=== PATIENT | male | born 1965 | race Caucasian/White ===

== ENCOUNTER → 2022-05-01 | Outpatient (CLI) | payer OTHER ==
[~2022-05-01] MED LIST: AMIT50; AMIT50 PO; ASPI325EC; CEPH500 PO; CLON2; DIPH50 PO; GLYB5; HYDACE10B; HYDACE5 PO; INS70/30I SC; INS70/30PN SC; INSLI100I SC; INSN100I; INSR10I; INSU7030P SC; INSUASPI SC; INSULANI; LISI20; LISI20 PO; METF500 PO; METF850; OMEP20ER; OMEP20ER PO; OXYC10ER; PIOG15; PIOG15 PO; PRED20 PO; PROM25 PO; QUET200; QUET300; QUET300 PO; RXHYDACE PO; TRAZ100
[2022-05-01 12:33] LABS: BASOPHILS ABSOLUTE AUTO 0.06 K/mm3 (0.00-0.23); BASOPHILS PERCENT AUTO 1 % (0-2); EOSINOPHILS ABSOLUTE AUTO 0.35 K/mm3 (0.00-0.68); EOSINOPHILS PERCENT AUTO 4 % (0-6); Hematocrit 40.1 % (37.0-53.0); Hemoglobin 12.8 g/dL (13.5-17.5); IMMATURE GRAN ABSOLUTE AUTO 0.12 K/mm3 (0.00-0.10); IMMATURE GRAN PERCENT AUTO 1 % (0-1); LYMPHOCYTES ABSOLUTE AUTO 1.88 K/mm3 (0.84-5.20); LYMPHOCYTES PERCENT AUTO 22 % (21-46); MONOCYTES ABSOLUTE AUTO 1.05 K/mm3 (0.16-1.47); MONOCYTES PERCENT AUTO 13 % (4-13); Mean Corpuscular HGB 26.2 pg (26.0-34.0); Mean Corpuscular HGB Conc 31.9 g/dL (31.5-36.5); Mean Corpuscular Volume 82 fL (80-100); Mean Platelet Volume 11.9 fL (9.1-12.4); NEUTROPHILS ABSOLUTE AUTO 4.94 K/mm3 (1.96-9.15); NEUTROPHILS PERCENT AUTO 59 % (41-73); Platelet Count 226 K/mm3 (150-400); RDW Coefficient Variation 13.4 % (11.7-14.2); RDW Standard Deviation 39.8 fL (35.1-46.3); Red Blood Cell Count 4.88 M/mm3 (4.30-5.90)
[2022-05-01 12:44] LABS: Albumin, Blood 3.7 g/dL (3.4-5.0); Bilirubin, Total 0.3 mg/dL (0.1-1.0); Calcium, Blood 9.2 mg/dL (8.5-10.1); Creatinine, Blood 1.25 mg/dL (0.60-1.20); Globulin, Blood 3.7 g/dL (2.2-4.0); Total Protein, Blood 7.4 g/dL (6.4-8.2)
== END | disposition home or self-care (01) ==
LOC: LAB 12:29 → LAB SHORT 12:29
PROVIDERS: Chiropractor
DX: E11.9 Type 2 diabetes mellitus without complications (principal)
CPT/HCPCS: 80053; 83036; 85025

== ENCOUNTER 2022-07-18 09:55 | Inpatient (IN) | payer OTHER ==
[~2022-07-18] VITALS: Ht 182.9 cm; Wt 164.3 kg
[2022-07-18 12:07] LABS: BASOPHILS ABSOLUTE AUTO 0.06 K/mm3 (0.00-0.23); BASOPHILS PERCENT AUTO 1 % (0-2); EOSINOPHILS ABSOLUTE AUTO 0.04 K/mm3 (0.00-0.68); EOSINOPHILS PERCENT AUTO 0 % (0-6); Hematocrit 42.9 % (37.0-53.0); Hemoglobin 13.4 g/dL (13.5-17.5); IMMATURE GRAN ABSOLUTE AUTO 0.16 K/mm3 (0.00-0.10); IMMATURE GRAN PERCENT AUTO 1 % (0-1); LYMPHOCYTES ABSOLUTE AUTO 0.87 K/mm3 (0.84-5.20); LYMPHOCYTES PERCENT AUTO 7 % (21-46); MONOCYTES PERCENT AUTO 6 % (4-13); Mean Corpuscular HGB 24.7 pg (26.0-34.0); Mean Corpuscular HGB Conc 31.2 g/dL (31.5-36.5); Mean Corpuscular Volume 79 fL (80-100); Mean Platelet Volume 12.3 fL (9.1-12.4); NEUTROPHILS ABSOLUTE AUTO 10.23 K/mm3 (1.96-9.15); NEUTROPHILS PERCENT AUTO 85 % (41-73); Platelet Count 226 K/mm3 (150-400); RDW Coefficient Variation 14.3 % (11.7-14.2); RDW Standard Deviation 40.7 fL (35.1-46.3); Red Blood Cell Count 5.43 M/mm3 (4.30-5.90); White Blood Cell Count 12.06 K/mm3 (4.00-11.30)
[2022-07-18 12:24] LABS: C-REACTIVE PROTEIN, EXT RANGE 14.4 mg/dL (0.000-0.300)
[2022-07-18 12:55] LABS: Albumin, Blood 2.7 g/dL (3.4-5.0); Albumin/Globulin Ratio 0.7 (0.8-1.8); Bilirubin, Total 0.5 mg/dL (0.1-1.0); Bun/Creatinine Ratio 27.8 (12.0-20.0); Calcium, Blood 9.6 mg/dL (8.5-10.1); Creatinine, Blood 0.79 mg/dL (0.60-1.20); Globulin, Blood 4.1 g/dL (2.2-4.0); Potassium, Blood 5.3 mmol/L (3.5-5.5); Total Protein, Blood 6.8 g/dL (6.4-8.2)
[2022-07-18 16:59] LABS: U Amphetamine Screen DETECTED; U Barbituate Screen Not Detected; U Benzodiazapine Screen Not Detected; U Buprenorphine Screen Not Detected; U Cannabinoids Screen Not Detected; U Cocaine Screen Not Detected; U Methadone Screen Not Detected; U Methamphetamine Screen DETECTED; U Opiates Screen Not Detected; U Oxycodone Screen Not Detected; U Phencyclidine Screen Not Detected; U Propoxyphene Screen Not Detected
--- NOTE | 2022-07-18 17:30 | NUR ---
ARRIVAL TO UNIT PT. ABLE TO STAND AND TRANSFER TO ICU BED. PT HAS 22G IV TO LEFT CHEST WALL INFUSING NS AND ANTIBIOTICS. IV TO RIGHT AC INFILTRATED AND REMOVED UPON ARRIVAL. PT. ALERT AND ORIENTED. ANSWERING QUESTIONS. AFEBRILE. PT. INSULIN GTT STARTED AND PG PLACED TO RIGHT UPPER ARM FOR ADDITIONAL ACCESS AND BLOOD DRAW. PT. HAS BILAT REDNESS AND SWELLING TO FOREARMS, PER ED REPORT PLAN IS FOR PT TO GO TO OR TOMORROW. REDNESS OUTLINED. PT STANDS AT BEDSIDE TO VOID, VOIDS FREQUENTLY CLEAR YELLOW URINE. PT HYPERTENSIVE UPON ARRIVAL. HR 80S. CURRENTLY ON RA.
[2022-07-18] MEDS ORDERED: BASAGLAR K100 UNIT/1 SC (17:33)
[2022-07-18 18:26] LABS: Base Excess Venous 3.6 mmol/L; pH Blood Venous 7.33 (7.34-7.37)
[2022-07-18 18:47] LABS: Glucose, Blood 710 mg/dL (70-99)
--- NOTE | 2022-07-18 19:15 | NUR ---
ASSUMED CARE OF PT @1900 FROM DARYA NAVA. PT RESTING IN BED. A&O X4. ANSWERING QUESTIONS APPROPRIATELY. COMPLAINING OF PAIN AND IS RESTLESS. INSULIN 8U/HR INFUSING, NS 300MLS/HR INFUSING. PG JACKY. IV L SHOULDER PATENT W/SALINE LOCK. RR 20, SPO2 >92%, CONTINUOUS CARDIAC MONITORING. HR 80'S, SBP 190-210, MAP >65.
--- NOTE | 2022-07-18 20:36 | NUR ---
UPDATE CALLED DR GEORGE REGARDING PT BP 221/88. PRN HYDROLAZINE AND PRN FENTANYL GIVEN EARLIER WITH NO RELIEF. NEW ORDERS PROVIDED FOR PRN LABETALOL.
[2022-07-18 20:47] LABS: Bun/Creatinine Ratio 26.3 (12.0-20.0); Calcium, Blood 9.3 mg/dL (8.5-10.1); Creatinine, Blood 0.84 mg/dL (0.60-1.20); Potassium, Blood 3.9 mmol/L (3.5-5.5)
--- NOTE | 2022-07-18 22:06 | NUR ---
JANEE GEORGE RE SBP >190'S AFTER PRN ANTIHYPERTENSIVE MEDICATIONS. DUE TO HIGHEST SBP IN 120'S PRIOR TO MEDS CONTINUE TO MONITOR AND GIVE PRN MEDS THEY ARE DUE. IF SBP INCREASES TO >200 LET PHYSICIAN KNOW.
[2022-07-19 03:29] LABS: BASOPHILS ABSOLUTE AUTO 0.03 K/mm3 (0.00-0.23); BASOPHILS PERCENT AUTO 0 % (0-2); EOSINOPHILS ABSOLUTE AUTO 0.16 K/mm3 (0.00-0.68); EOSINOPHILS PERCENT AUTO 2 % (0-6); Hemoglobin 11.4 g/dL (13.5-17.5); IMMATURE GRAN ABSOLUTE AUTO 0.07 K/mm3 (0.00-0.10); IMMATURE GRAN PERCENT AUTO 1 % (0-1); LYMPHOCYTES PERCENT AUTO 14 % (21-46); MONOCYTES ABSOLUTE AUTO 0.82 K/mm3 (0.16-1.47); MONOCYTES PERCENT AUTO 8 % (4-13); Mean Corpuscular HGB 24.4 pg (26.0-34.0); Mean Corpuscular HGB Conc 31.7 g/dL (31.5-36.5); Mean Corpuscular Volume 77 fL (80-100); NEUTROPHILS ABSOLUTE AUTO 7.41 K/mm3 (1.96-9.15); NEUTROPHILS PERCENT AUTO 75 % (41-73); Platelet Count 189 K/mm3 (150-400); RDW Coefficient Variation 14.2 % (11.7-14.2); RDW Standard Deviation 38.6 fL (35.1-46.3); Red Blood Cell Count 4.68 M/mm3 (4.30-5.90); White Blood Cell Count 9.89 K/mm3 (4.00-11.30)
[2022-07-19 03:51] LABS: Albumin, Blood 2.3 g/dL (3.4-5.0); Albumin/Globulin Ratio 0.6 (0.8-1.8); Bilirubin, Total 0.4 mg/dL (0.1-1.0); Bun/Creatinine Ratio 22.3 (12.0-20.0); Calcium, Blood 8.7 mg/dL (8.5-10.1); Creatinine, Blood 0.67 mg/dL (0.60-1.20); Globulin, Blood 3.7 g/dL (2.2-4.0); Magnesium, Blood 1.7 mg/dL (1.6-2.4); Potassium, Blood 3.6 mmol/L (3.5-5.5)
--- NOTE | 2022-07-19 05:30 | NUR ---
UPDATE SW DR LOMBARDI RE CBG <250. NO NEW ORDERS AT THIS TIME. DISCUSSED HYPERTENSION, SBP 180-210. NEW ORDER FOR HYDRALAZINE 10-20MG PRN Q 6HRS.
--- NOTE | 2022-07-19 06:23 | NUR ---
UPDATE CALLED DR CHAPMAN REGARDING CBG <250. NEW ORDERS PROVIDED TO STOP THE INSULIN GTT AND START LONG ACTING INSULIN.
--- NOTE | 2022-07-19 06:27 | NUR ---
SUMMARY: PT A&O X4 THROUGHOUT SHIFT. ANXIOUS AND COMPLAINING OF PAIN IN FOREARMS. COOPERATIVE W/CARE. PT ABLE TO MOVE ALL EXTREMETIES AND SIT AT EDGE OF BED TO USE URINAL. USES CALL LIGHT APPROPRIATELY. AFEBRILE. PERRL. RR <20, SPO2 >94% ON RA. HR SR 80-90'S. PT REMAINED HYPERTENSIVE THROUGHOUT SHIFT. SBP 180-210'S, TREATED W/PRN LABETALOL AND HYDRALAZINE. PT COMPLAINED OF NAUSEA THIS AM, ZOFRAN GIVEN. PT URINATING FREQUENTLY. IV ACCESS: PG JACKY INFUSING, PG CRYSTAL PATENT W/SALINE LOCK. IV 22GA L SHOULDER SALINE LOCK.
--- NOTE | 2022-07-19 10:00 | NUR ---
Care Assumed 0700 A/O X 4, correct location, event, and following directions. States having pain in forearms, treated per emar. Bilateral redness and swelling to forearms, see pictures in chart. Redness contained within outline. Moving all extrems and standing to use urinal. Hypertensive, will treat per emar. Insulin GTT @ 4, stopped and long acting insulin administed, see emar. Call light within reach.
--- NOTE | 2022-07-19 10:00 | NUR ---
Care Assumed 0700 A/O X 4, states year, correct event, and following directions. Calm/ cooperative . Able to stand at bedside to use urinal. States having pain in forearms, treated per emar. Bilateral forearm redness/tender, see pictures in chart. Redness contained within outline. Pt hypertensive, treated per emar. VSS. Call light within reach.
--- NOTE | 2022-07-19 11:00 | NUR ---
Provider Call Dr. Garry Castañeda called to check patient status. Updated on current pt care and wounds on left and right forearm. Provider to stop by later to assess prior to surgery today.
--- NOTE | 2022-07-19 12:56 | NUR ---
Provider Call- Dr. Darby 2100 dose of Glargine to be held due to 0802 and 1049 dose of 20 units of glargine already being administered. New orders for oxygen and CPAP due to patients SPO2 destating to low 80's while asleep.
--- NOTE | 2022-07-19 13:38 | NUR ---
Dr. Castañeda provider visit and provider call- Dr. Mehnaz Castañeda in to see patient. And Dr. Darby called to change pt status to PCU status. New orders recieved.
--- NOTE | 2022-07-19 14:14 | NUR ---
Surgery center nurse at bedside.
--- NOTE | 2022-07-19 15:00 | NUR ---
Transfer to surgery center via wheelchair with surgical nurse.
--- NOTE | 2022-07-19 16:16 | NUR ---
07/19/22 1616 Jorge Eckert PATIENT ON SCHEDULED ANTIBIOTICS
--- NOTE | 2022-07-19 18:35 | NUR ---
Returing from OR to ICU 14 Pt transfered via OR bed to ICU bed. A/O X 4. Per surgery nurse pt has Brick in left forearm. Both forearms TAI wrapped and gauze in place. Pt denies numbness/tingling. On 2 L via NC, SPO2 > 90%. Wheezing T/O. Hypertensive, treated per emar. BT active and able to tolerate PO intake. Denies nausea. Appears angry due to wanting to stand and use urinal. Three nurses at bedside to assist patient due to pt refusing to use urinal in bed. Will report to night.
--- NOTE | 2022-07-19 18:44 | NUR ---
Provider Call - Dr. Morocho Provider called to recieve diet order and to start pt on short acting insulin to manage hyperglycemia. Left voicemail. Will pass on message to nightshift RN.
--- NOTE | 2022-07-19 18:54 | NUR ---
Spoke to Dr. Morocho and provider to put in new orders.
[2022-07-19 18:59] LABS: Vancomycin, Trough 17.1 ug/mL (5.0-10.0)
[2022-07-20 03:55] LABS: BASOPHILS ABSOLUTE AUTO 0.06 K/mm3 (0.00-0.23); BASOPHILS PERCENT AUTO 1 % (0-2); EOSINOPHILS ABSOLUTE AUTO 0.15 K/mm3 (0.00-0.68); EOSINOPHILS PERCENT AUTO 2 % (0-6); Hematocrit 38.7 % (37.0-53.0); Hemoglobin 11.7 g/dL (13.5-17.5); IMMATURE GRAN ABSOLUTE AUTO 0.15 K/mm3 (0.00-0.10); IMMATURE GRAN PERCENT AUTO 2 % (0-1); LYMPHOCYTES ABSOLUTE AUTO 1.15 K/mm3 (0.84-5.20); LYMPHOCYTES PERCENT AUTO 11 % (21-46); MONOCYTES ABSOLUTE AUTO 0.85 K/mm3 (0.16-1.47); MONOCYTES PERCENT AUTO 8 % (4-13); Mean Corpuscular HGB 24.5 pg (26.0-34.0); Mean Corpuscular HGB Conc 30.2 g/dL (31.5-36.5); Mean Corpuscular Volume 81 fL (80-100); NEUTROPHILS ABSOLUTE AUTO 7.75 K/mm3 (1.96-9.15); NEUTROPHILS PERCENT AUTO 77 % (41-73); Platelet Count 243 K/mm3 (150-400); RDW Coefficient Variation 14.8 % (11.7-14.2); RDW Standard Deviation 43.2 fL (35.1-46.3); Red Blood Cell Count 4.77 M/mm3 (4.30-5.90); White Blood Cell Count 10.11 K/mm3 (4.00-11.30)
[2022-07-20 04:15] LABS: Albumin, Blood 2.5 g/dL (3.4-5.0); Albumin/Globulin Ratio 0.7 (0.8-1.8); Bilirubin, Total 0.4 mg/dL (0.1-1.0); Bun/Creatinine Ratio 18.6 (12.0-20.0); C-REACTIVE PROTEIN, EXT RANGE 6.34 mg/dL (0.000-0.300); Calcium, Blood 7.7 mg/dL (8.5-10.1); Creatinine, Blood 1.13 mg/dL (0.60-1.20); Globulin, Blood 3.7 g/dL (2.2-4.0); Potassium, Blood 4.7 mmol/L (3.5-5.5); Total Protein, Blood 6.2 g/dL (6.4-8.2)
--- NOTE | 2022-07-20 06:35 | NUR ---
SHIFT SUMMARY: PTS CHEMBG WAS 383 LAST NIGHT. CALLED MD ABOUT NURSING ORDER TO HOLD LONG ACTING AND MD STATED TO GIVE LONGA CTING WELL SSI. ARMS WRAPPED IN BANDAGES FROM SURGERY. PRN FENTANYL, LABETALOL, AND HYDRALAZINE GIVEN THROUGHOUT NIGHT WITH MODERATE HTN CONTROL.NS INFUSING @ 100ML/HR. NO ACUTE EVENTS OVERNIGHT
--- NOTE | 2022-07-20 09:30 | NUR ---
Care Assumed 0700 A.O X 4. On 4 L via NC, SPO2 > 95%. LS coarse. Able to turn self in bed. States having left and right forearm pain while moving. Able to stand and use urinal. Had an episode of bowel incontinence. Per nightshift this happened twice during nightshift as well. VSS. Call light within reach. BT active. Dr. Darby in to see patient and pt changed to surgical floor status. NS rate changed from 100 ml/hr to 50 ml/hr. Provider to place orders for PO pain meds.
--- NOTE | 2022-07-20 10:25 | NUR ---
Provider visit- Dr. Castañeda Left and right forearm dressing changed by provider. Wet to dry. Left forearm surgical site appears ecchymotic. Pt states increased pain with dressing changes (03/27). Treated per emar. Per provider pt cannot be discharged home today. Pt can take a shower and Dr. Castañeda would like dressings removed and water to run on both forearms. Wet to dry packed dressing with gauze and benjamín wrap after.
--- NOTE | 2022-07-20 12:38 | NUR ---
Hyperglycemia- Dr. Darby New orders recieved see emar.
--- NOTE | 2022-07-20 13:41 | NUR ---
Report given to room 340 nurse. All questions answered. All patient belongings sent with patient.
--- NOTE | 2022-07-20 17:21 | NUR ---
DAYSHIFT SUMMARY Patient transferred from ICU. S/p I&D abscess. Per MD orders, okay to remove dressings, for shower. Scant amount of pink/bloody exudate noted on dressings. After shower repacked wound bed w/ wet to dry dressing. Patient c/o moderate/severe pain bilateral wrists. Percocet given for pain, PRN effective. IV ABX infusing. Plan is for NPO & midnight, possible I&D tomorrow. Skin surrounding wound beds, red/warm. Will continue plan of care.
--- NOTE | 2022-07-21 03:31 | NUR ---
Patient in room, prn pain medication given.
[2022-07-21 06:29] LABS: BASOPHILS ABSOLUTE AUTO 0.04 K/mm3 (0.00-0.23); BASOPHILS PERCENT AUTO 1 % (0-2); EOSINOPHILS ABSOLUTE AUTO 0.35 K/mm3 (0.00-0.68); EOSINOPHILS PERCENT AUTO 4 % (0-6); Hemoglobin 11.7 g/dL (13.5-17.5); IMMATURE GRAN PERCENT AUTO 1 % (0-1); LYMPHOCYTES ABSOLUTE AUTO 0.93 K/mm3 (0.84-5.20); LYMPHOCYTES PERCENT AUTO 11 % (21-46); MONOCYTES ABSOLUTE AUTO 0.69 K/mm3 (0.16-1.47); MONOCYTES PERCENT AUTO 8 % (4-13); Mean Corpuscular HGB 24.1 pg (26.0-34.0); Mean Corpuscular Volume 80 fL (80-100); NEUTROPHILS ABSOLUTE AUTO 6.69 K/mm3 (1.96-9.15); NEUTROPHILS PERCENT AUTO 76 % (41-73); Platelet Count 221 K/mm3 (150-400); RDW Coefficient Variation 14.7 % (11.7-14.2); RDW Standard Deviation 42.5 fL (35.1-46.3); Red Blood Cell Count 4.86 M/mm3 (4.30-5.90)
[2022-07-21 06:58] LABS: Anion Gap 8 mmol/L (6-16); Blood Urea Nitrogen 16 mg/dL (8-24); Bun/Creatinine Ratio 18.8 (12.0-20.0); CO2, Blood 26 mmol/L (21-32); Calcium, Blood 8.7 mg/dL (8.5-10.1); Chloride, Blood 103 mmol/L (98-108); Creatinine, Blood 0.85 mg/dL (0.60-1.20); Glomerular Filtration Rate 103 (60-); Glucose, Blood 258 mg/dL (70-99); Potassium, Blood 4.1 mmol/L (3.5-5.5); Sodium, Blood 137 mmol/L (136-145); Vancomycin, Random 7.8 ug/mL
--- NOTE | 2022-07-21 14:08 | NUR ---
Patient NPO at midnight, possible I&D on left arm. RN talked to Dr. Castañeda this morning, she said she would be in to assess LE to determine if surgery needed. Called Dr. Castañeda at 1307, left message. Dr. Castañeda called & said she was going into surgery and would see pt later. RN told MD that patient is a diabetic, and is anxious to eat. Pt does not want to wait any longer, requesting food tray. Dr. Castañeda is aware, that patient is eating right now, against medical advice. Educated provided on outcomes of pt not following NPO order. Patient verbalized understanding, and requested to have food now.
--- NOTE | 2022-07-21 18:02 | NUR ---
DAYSHIFT SUMMARY Patient NPO until 1400, IV ABX administred, saturations stable on RA, afebrile. Patient hypertensive this AM, no PRNs avaliable to given, notified MD, and new med orders. Patient anxious & frusterated becuase he had to be NPO all day. Changed dressings on BLE, provided education on wound care. Dr. De La Garza assessed patient at bedside, she removed dressings, flushed wound beds, and reapplied new dressings. Dr. Castañeda stated patient wounds look better, she recommends PO ABX & patient come to [facility] wound clinic daily for dressing changes. Notified Dr. marshall, plan is to keep patient overnight for IV ABX & tomorrow set up wound care visits, and discharge med rec.
--- NOTE | 2022-07-22 03:30 | NUR ---
Patient pain controlled with prn medication.
[2022-07-22 08:54] LABS: Influenza B, PCR NEGATIVE (NEGATIVE); Resp Syncytial Virus, PCR NEGATIVE (NEGATIVE); SARS-Cov-2 (COVID-19) PCR, MMC NEGATIVE (NEGATIVE)
[2022-07-22 08:56] LABS: Influenza A, PCR POSITIVE (NEGATIVE)
[2022-07-22 10:00] LABS: BASOPHILS ABSOLUTE AUTO 0.04 K/mm3 (0.00-0.23); BASOPHILS PERCENT AUTO 1 % (0-2); EOSINOPHILS ABSOLUTE AUTO 0.25 K/mm3 (0.00-0.68); EOSINOPHILS PERCENT AUTO 6 % (0-6); Hematocrit 36.3 % (37.0-53.0); Hemoglobin 10.9 g/dL (13.5-17.5); IMMATURE GRAN ABSOLUTE AUTO 0.06 K/mm3 (0.00-0.10); IMMATURE GRAN PERCENT AUTO 1 % (0-1); LYMPHOCYTES ABSOLUTE AUTO 0.51 K/mm3 (0.84-5.20); LYMPHOCYTES PERCENT AUTO 12 % (21-46); MONOCYTES ABSOLUTE AUTO 0.79 K/mm3 (0.16-1.47); MONOCYTES PERCENT AUTO 18 % (4-13); Mean Corpuscular HGB 24.1 pg (26.0-34.0); Mean Corpuscular Volume 80 fL (80-100); Mean Platelet Volume 12.3 fL (9.1-12.4); NEUTROPHILS ABSOLUTE AUTO 2.69 K/mm3 (1.96-9.15); NEUTROPHILS PERCENT AUTO 62 % (41-73); Platelet Count 161 K/mm3 (150-400); RDW Coefficient Variation 14.8 % (11.7-14.2); RDW Standard Deviation 43.4 fL (35.1-46.3); Red Blood Cell Count 4.52 M/mm3 (4.30-5.90); White Blood Cell Count 4.34 K/mm3 (4.00-11.30)
[2022-07-22 10:01] LABS: Vancomycin, Trough 13.5 ug/mL (5.0-10.0)
[2022-07-22 10:04] LABS: Albumin, Blood 2.4 g/dL (3.4-5.0); Albumin/Globulin Ratio 0.7 (0.8-1.8); Bilirubin, Total 0.3 mg/dL (0.1-1.0); Bun/Creatinine Ratio 13.7 (12.0-20.0); C-REACTIVE PROTEIN, EXT RANGE 3.05 mg/dL (0.000-0.300); Calcium, Blood 8.4 mg/dL (8.5-10.1); Creatinine, Blood 1.24 mg/dL (0.60-1.20); Globulin, Blood 3.4 g/dL (2.2-4.0); Total Protein, Blood 5.8 g/dL (6.4-8.2)
[2022-07-22] MEDS ORDERED: AMLO10 PO (12:52)
[2022-07-22] MEDS ORDERED: CLINDAMYCI PO (12:53)
[2022-07-22] MEDS ORDERED: AMOCLA875 PO (12:53)
[2022-07-22] MEDS ORDERED: HYDRA25 (12:53)
[2022-07-22] MEDS ORDERED: Percocet 5-3251 EACH PO (12:54)
--- NOTE | 2022-07-22 14:16 | NUR ---
This morning finished IV ABX Zoysn, Vanco, & Clindamycin. Patient continues to be hypertensive, this morning BP was 203/96, after receiving morning meds BP was 174/96. MD encouraged patient to stay overnight, to stablize BP. Patient verbalized understanding, but declined and stated he would be more relaxed at home & would f/u with PCP this week. Provided education on wound care & medication. Referral sent to [facility] wound clinic, the clinic will reach out to patient this week. Cleansed and reapplied new wet-to-dry dressing, patient verbalizied understanding & said his GF would help, extra dressings provided. Called [facility] & established care, patient has f/u appointment scheduled for this week. Removed powerglides in LUE/RUE, cath tip intact, no redness at site. Pharmacist also provided education to patient. Patient left medical floor at 1400.
== END 2022-07-22 14:04 | disposition home or self-care (01) | DRG 853 ==
LOC: ER 09:55 → MEDS 15:52 → ICUW 15:52 → MEDS 07-20 13:55
PROVIDERS: Hospitalist; Nurse Practitioner Acute Care; Orthopaedic Surgery; Physician Assistant; ADMIT Internal Medicine
PROC: 3E03329 Introduction of Other Anti-infective into Peripheral Vein, Percutaneous Approach (ICD-10-PCS; 2022-07-18)
PROC: 0JBG0ZZ Excision of Right Lower Arm Subcutaneous Tissue and Fascia, Open Approach (ICD-10-PCS; 2022-07-19)
PROC: 0JBH0ZZ Excision of Left Lower Arm Subcutaneous Tissue and Fascia, Open Approach (ICD-10-PCS; principal; 2022-07-19 15:00)
DX: A41.4 Sepsis due to anaerobes (principal); E11.00 Type 2 diabetes mellitus with hyperosmolarity without nonketotic hyperglycemic-hyperosmolar coma (NKHHC); L03.114 Cellulitis of left upper limb; L02.414 Cutaneous abscess of left upper limb; L02.413 Cutaneous abscess of right upper limb; Z68.43 Body mass index [BMI] 50.0-59.9, adult; R65.20 Severe sepsis without septic shock; I16.0 Hypertensive urgency; F15.10 Other stimulant abuse, uncomplicated; J10.1 Influenza due to other identified influenza virus with other respiratory manifestations; K21.9 Gastro-esophageal reflux disease without esophagitis; G47.33 Obstructive sleep apnea (adult) (pediatric); E66.01 Morbid (severe) obesity due to excess calories; J98.2 Interstitial emphysema; Z98.890 Other specified postprocedural states; Z20.822 Contact with and (suspected) exposure to COVID-19; Z79.84 Long term (current) use of oral hypoglycemic drugs; Z79.811 Long term (current) use of aromatase inhibitors; Z79.4 Long term (current) use of insulin; Z79.899 Other long term (current) drug therapy; Z91.198 Patient's noncompliance with other medical treatment and regimen for other reason
CPT/HCPCS: 0241U; 36415; 73201; 80048; 80053; 80202; 82010; 82550; 82803; 82947; 83605; 83735; 83930; 85025; 85651; 86140; 87040; 87070; 87071; 87075; 87076; 87205; 90471; 90714; 93005; 93010; 96365-59; 96366-59; 96367-59; 96375-59; 99285-25; A9270; C1751; J0360; J1100; J1170; J1650; J1815; J2250; J2405; J2543; J2704; J3010; J3370; J7030; J7050; J7120; Q9967

== ENCOUNTER 2022-07-26 18:20 | Inpatient (IN) | payer OTHER ==
[~2022-07-26] VITALS: Ht 185.4 cm; Wt 179.4 kg
[~2022-07-26 18:20] MED LIST changes: +AMLO10 PO; +AMOCLA875 PO; +BASAGLAR K100 UNIT/1 SC; +CLINDAMYCI PO; +HYDRA25; +Percocet 5-3251 EACH PO
[2022-07-26 19:00] LABS: Base Excess Venous -3.1 mmol/L; Bicarbonate Venous 20.8 mmol/L (24.0-30.0); PCO2 Venous 69.7 mmHg (38-42)
[2022-07-26 19:01] LABS: Albumin, Blood 2.6 g/dL (3.4-5.0); Albumin/Globulin Ratio 0.7 (0.8-1.8); Bilirubin, Total 0.4 mg/dL (0.1-1.0); Bun/Creatinine Ratio 20.7 (12.0-20.0); Calcium, Blood 8.8 mg/dL (8.5-10.1); Creatinine, Blood 2.61 mg/dL (0.60-1.20); Globulin, Blood 3.9 g/dL (2.2-4.0); Potassium, Blood 5.9 mmol/L (3.5-5.5); Total Protein, Blood 6.5 g/dL (6.4-8.2)
[2022-07-26 19:01] LABS: pH Blood Venous 7.17 (7.34-7.37)
[2022-07-26 19:05] LABS: Beta-hydroxybutyrate 1.8 mg/dL (0.2-2.8)
[2022-07-26 19:22] LABS: BASOPHILS ABSOLUTE AUTO 0.03 K/mm3 (0.00-0.23); BASOPHILS PERCENT AUTO 0 % (0-2); EOSINOPHILS PERCENT AUTO 0 % (0-6); Hematocrit 38.4 % (37.0-53.0); Hemoglobin 11.7 g/dL (13.5-17.5); IMMATURE GRAN ABSOLUTE AUTO 0.12 K/mm3 (0.00-0.10); IMMATURE GRAN PERCENT AUTO 2 % (0-1); LYMPHOCYTES ABSOLUTE AUTO 0.86 K/mm3 (0.84-5.20); LYMPHOCYTES PERCENT AUTO 13 % (21-46); MONOCYTES ABSOLUTE AUTO 0.74 K/mm3 (0.16-1.47); MONOCYTES PERCENT AUTO 11 % (4-13); Mean Corpuscular HGB 24.4 pg (26.0-34.0); Mean Corpuscular HGB Conc 30.5 g/dL (31.5-36.5); Mean Corpuscular Volume 80 fL (80-100); NEUTROPHILS ABSOLUTE AUTO 5.04 K/mm3 (1.96-9.15); NEUTROPHILS PERCENT AUTO 74 % (41-73); NRBC ABSOLUTE 0.02 K/mm3 (0.00-0.02); NRBC Auto 0.3 /100 WBC (0.0-0.2); Platelet Count 264 K/mm3 (150-400); RDW Coefficient Variation 14.8 % (11.7-14.2); RDW Standard Deviation 43.3 fL (35.1-46.3); Red Blood Cell Count 4.79 M/mm3 (4.30-5.90); White Blood Cell Count 6.79 K/mm3 (4.00-11.30)
[2022-07-26 19:49] LABS: Mean Platelet Volume 13.6 fL (9.1-12.4)
[2022-07-26 21:22] LABS: Influenza B, PCR NEGATIVE (NEGATIVE); Resp Syncytial Virus, PCR NEGATIVE (NEGATIVE); SARS-Cov-2 (COVID-19) PCR, MMC NEGATIVE (NEGATIVE)
[2022-07-26 21:38] LABS: Base Excess Venous -1.3 mmol/L; Bicarbonate Venous 22.3 mmol/L (24.0-30.0); pH Blood Venous 7.25 (7.34-7.37)
[2022-07-26 21:39] LABS: Bun/Creatinine Ratio 20.4 (12.0-20.0); Calcium, Blood 8.9 mg/dL (8.5-10.1); Creatinine, Blood 2.75 mg/dL (0.60-1.20); Potassium, Blood 5.5 mmol/L (3.5-5.5)
[2022-07-26 21:45] LABS: Influenza A, PCR POSITIVE (NEGATIVE)
[2022-07-26 23:14] LABS: Bilirubin, Urine Neg (Neg); Blood, Urine Neg (Neg); Glucose Qualitative, Urine 4+ (Neg); Ketones, Urine Neg (Neg); Leukocyte Esterase, Urine Neg (Neg); Nitrite, Urine Neg (Neg); Protein, Urine Neg (Neg); Specific Gravity, Urine 1.015 (1.003-1.022); Urobilinogen, Urine NORM (Normal)
[2022-07-27 00:23] LABS: Appearance, Urine Clear (Clear); Color, Urine Yellow (P-Yellow)
[2022-07-27 01:26] LABS: Source, Urine Foley catheter
[2022-07-27 01:51] LABS: PCO2 Arterial 55.6 mmHg (35-45); PO2 Arterial 113 mmHg (80-100)
[2022-07-27 02:02] LABS: Appearance, Urine Clear (Clear); Bilirubin, Urine Neg (Neg); Blood, Urine Neg (Neg); Color, Urine Yellow (P-Yellow); Glucose Qualitative, Urine 4+ (Neg); Ketones, Urine Neg (Neg); Leukocyte Esterase, Urine Neg (Neg); Nitrite, Urine Neg (Neg); Protein, Urine 1+ (Neg); Specific Gravity, Urine 1.015 (1.003-1.022); Urobilinogen, Urine NORM (Normal)
[2022-07-27 02:07] LABS: Creatinine, Blood 2.95 mg/dL (0.60-1.20); Potassium, Blood 4.8 mmol/L (3.5-5.5)
--- NOTE | 2022-07-27 04:43 | NUR ---
SHIFT SUMMARY: PT. CAME IN OVERNIGHT WITH AN INSULIN DRIP GOING AT 21 AND BG IN THE 300S. UPON ARRIVAL BG WAS 302 AND UPON SECOND CHECK, GLUCOSE WAS BELOW 250 AND THE INSULIN DRIP WAS ABLE TO BE TURNED OFF. PT. CAME UP ON BIPAP AND IS SATTING WELL ON THAT, ALTHOUGH LUNG SOUNDS DO HAVE AN AUDIBLE WHEEZE. PT. IS ALERT AND ORIENTED AND ABLE TO ANSWER QUESTIONS APPROPRIATELY NOW. PT. HAS A BENITEZ CATHETER DRAINING TO GRAVITY. PT. IS CURRENTLY SALINE LOCKED AMD IS RESTING IN BED WITH CALL LIGHT IN REACH.
[2022-07-27 04:50] LABS: BASOPHILS ABSOLUTE AUTO 0.03 K/mm3 (0.00-0.23); BASOPHILS PERCENT AUTO 0 % (0-2); EOSINOPHILS ABSOLUTE AUTO 0.05 K/mm3 (0.00-0.68); EOSINOPHILS PERCENT AUTO 1 % (0-6); Hematocrit 34.6 % (37.0-53.0); Hemoglobin 10.7 g/dL (13.5-17.5); IMMATURE GRAN ABSOLUTE AUTO 0.12 K/mm3 (0.00-0.10); IMMATURE GRAN PERCENT AUTO 2 % (0-1); LYMPHOCYTES ABSOLUTE AUTO 1.78 K/mm3 (0.84-5.20); LYMPHOCYTES PERCENT AUTO 24 % (21-46); MONOCYTES ABSOLUTE AUTO 0.95 K/mm3 (0.16-1.47); MONOCYTES PERCENT AUTO 13 % (4-13); Mean Corpuscular HGB 24.2 pg (26.0-34.0); Mean Corpuscular HGB Conc 30.9 g/dL (31.5-36.5); Mean Corpuscular Volume 78 fL (80-100); Mean Platelet Volume 12.7 fL (9.1-12.4); NEUTROPHILS ABSOLUTE AUTO 4.62 K/mm3 (1.96-9.15); NEUTROPHILS PERCENT AUTO 61 % (41-73); NRBC ABSOLUTE 0.03 K/mm3 (0.00-0.02); NRBC Auto 0.4 /100 WBC (0.0-0.2); Platelet Count 303 K/mm3 (150-400); RDW Coefficient Variation 14.9 % (11.7-14.2); RDW Standard Deviation 42.1 fL (35.1-46.3); Red Blood Cell Count 4.42 M/mm3 (4.30-5.90); White Blood Cell Count 7.55 K/mm3 (4.00-11.30)
[2022-07-27 05:08] LABS: Albumin, Blood 2.3 g/dL (3.4-5.0); Albumin/Globulin Ratio 0.6 (0.8-1.8); Bilirubin, Total 0.4 mg/dL (0.1-1.0); Bun/Creatinine Ratio 18.2 (12.0-20.0); Calcium, Blood 8.6 mg/dL (8.5-10.1); Creatinine, Blood 3.19 mg/dL (0.60-1.20); Globulin, Blood 3.6 g/dL (2.2-4.0); Magnesium, Blood 2.4 mg/dL (1.6-2.4); Potassium, Blood 4.7 mmol/L (3.5-5.5); Total Protein, Blood 5.9 g/dL (6.4-8.2)
--- NOTE | 2022-07-27 08:46 | NUR ---
ASSUMED CARE OF MALLORIE AT 0700, HE WAS SLEEPING WITH THE BIPAP MASK ON @ 30%. WHEN AWAKENED DURING HIS ASSESSMENT HE ASKED FOR THE MASK TO BE REMOVED. OXYGEN PLACED AT 3L/NC. HE IS AUDIBLY HAVING EXP.WHEEZES AND IS DIMINISHED IN THE BASES. HE WENT ON TO EXPRESS HIS UNHAPPINESS WITH WHY HE IS HERE AND HOW HIS DISCHARGE A FEW DAYS AGO WENT. CALL TO TO GET FOOD ORDER. ORDER REC'D.
--- NOTE | 2022-07-27 09:14 | NUR ---
PT IS AUDIBLY WHEEZING, PT IS COUGHING QUITE A BIT, HE IS NOT ABLE TO RETURN ANYTHING. HE IS UP AND MOVING AROUND, HE IS WEAK AND UNSTEADY BUT NOT RESPON- SIVE TO REDIRECTION.
--- NOTE | 2022-07-27 11:05 | NUR ---
BIPAP REPLACED PT WAS FALLING ASLEEP AND WAS DROPPING HIS SATS. HE IS UNDERGOING THE ECHO RIGHT NOW, AND ULTRASOUND WILL RETURN FOR IMAGES. HE IS MORE CALM, HEART RATE 80S, SATS HI 90'S. RIGHT ARM WOUND FROM DEBRIDEMENT RE INFORCED WITH COBAN, EDGES CLEAN, NO EXUDATE. LEFT WOUND NOT ASSESSED, IT IS WRAPPED AND TAPED AT THIS TIME.
[2022-07-27 13:28] LABS: Base Excess Venous 2.6 mmol/L; Bicarbonate Venous 25.2 mmol/L (24.0-30.0); PCO2 Venous 64.4 mmHg (38-42); pH Blood Venous 7.27 (7.34-7.37)
--- NOTE | 2022-07-27 15:15 | NUR ---
GETACHEW WAS GIVEN THE INFORMATION REGARDING HIS HEART, THAT IT IS SICK AND VERY WEAK. THAT HE NEEDS TO UTILIZE THE BIPAP MACHINE. HE IS MORE COMPLIANT. HE REMAINS VERY IMPULSIVE, PULLING ON CORDS AND TUBES. HE WAS PROVIDED A POWER GLIDE FOR ACCESS HE HAS PROVED TO BE DIFFICULT TO GET BLOOD DRAWS. LEFT UPPER INSIDE ARM ACCESS. HE CONTINUES WITH THE PIV IN THE RIGHT AC AND THE LEFT FOREARM. INSULIN GTT AT 3 UNTIL SWITCH TO COVERAGE AT 1630. TROPONIN'S TRENDING DOWN.
--- NOTE | 2022-07-27 18:24 | NUR ---
SUMMARY: NEURO: A&O, LESS ANGRY, CARDIO: BP LABILE, HEART RATE 80-90, SKIN WARM, DRY, GOOD CIRC RESP: AUDIBLE WHEEZES HAVE DECREASED, BREATHING IS LESS LABORED, ON BIPAP 18/12, RATE 16, FIO2 30%, TOLERATES WELL. WHEN ON NC, COUGHING CONTINUES. GI: HUNGRY! WANTS HIS FOOD TRAYS AND TAKES IN 100%, NO PAIN, N/V, BM X2 : BENITEZ WITH GOOD UO, SKIN: EDEMA OF LEGS, HANDS, ARMS, FEET. BRUISING ALL OVER, BACK OF LEGS "FROM RESTING ON THE EDGE OF THE SEATS". BRUISING UPPER ARMS, INCISION SITES C/D/I, LEFT WRIST REDRESSED, SLIGHTLY YELLOW DISCHARGE, EDGES CLEAN. DRESSED WITH GAUZE AND COBAN. IV: POWER GLIDE PLACED INSIDE LEFT UPPER ARM, PIV LEFT FOREARM AND RIGHT AC MOBILITY: PT NEEDS ASSISTANCE TO SIT UP, STANDS AT BEDSIDE, ABLE TO REPOSITION SELF IN BED SOME.
[2022-07-28 06:05] LABS: BASOPHILS ABSOLUTE AUTO 0.03 K/mm3 (0.00-0.23); BASOPHILS PERCENT AUTO 1 % (0-2); EOSINOPHILS ABSOLUTE AUTO 0.03 K/mm3 (0.00-0.68); EOSINOPHILS PERCENT AUTO 1 % (0-6); Hematocrit 34.3 % (37.0-53.0); Hemoglobin 10.7 g/dL (13.5-17.5); IMMATURE GRAN ABSOLUTE AUTO 0.12 K/mm3 (0.00-0.10); IMMATURE GRAN PERCENT AUTO 2 % (0-1); LYMPHOCYTES ABSOLUTE AUTO 1.04 K/mm3 (0.84-5.20); LYMPHOCYTES PERCENT AUTO 17 % (21-46); MONOCYTES ABSOLUTE AUTO 0.73 K/mm3 (0.16-1.47); MONOCYTES PERCENT AUTO 12 % (4-13); Mean Corpuscular HGB 24.4 pg (26.0-34.0); Mean Corpuscular HGB Conc 31.2 g/dL (31.5-36.5); Mean Corpuscular Volume 78 fL (80-100); Mean Platelet Volume 12.1 fL (9.1-12.4); NEUTROPHILS PERCENT AUTO 68 % (41-73); Platelet Count 296 K/mm3 (150-400); RDW Coefficient Variation 14.8 % (11.7-14.2); RDW Standard Deviation 42.1 fL (35.1-46.3); Red Blood Cell Count 4.39 M/mm3 (4.30-5.90); White Blood Cell Count 6.05 K/mm3 (4.00-11.30)
--- NOTE | 2022-07-28 06:21 | NUR ---
SHIFT SUMMARY: PT. REMAINED STABLE OVERNIGHT, NO ACUTE EVENTS. BENITEZ IS STILL DRAINING TO GRAVITY AND PT. HAS HAD 3 BMS OVERNIGHT. PT. DID WELL ON BIPAP UNTIL THIS AM WHEN HE WAS TRANSFERRED BACK TO [place]. PT. COMPLAINED OF PAIN 2X AND WAS MEDICATED WITH PRNS PER EMAR. PT. RESTING COMFORTABLY IN BED WITH CALL LIGHT IN REACH AT THIS TIME.
[2022-07-28 06:29] LABS: Albumin, Blood 2.3 g/dL (3.4-5.0); Albumin/Globulin Ratio 0.7 (0.8-1.8); Bilirubin, Total 0.2 mg/dL (0.1-1.0); Bun/Creatinine Ratio 24.9 (12.0-20.0); Creatinine, Blood 2.09 mg/dL (0.60-1.20); Globulin, Blood 3.5 g/dL (2.2-4.0); Potassium, Blood 5.2 mmol/L (3.5-5.5); Total Protein, Blood 5.8 g/dL (6.4-8.2)
--- NOTE | 2022-07-28 13:29 | NUR ---
GETACHEW HAS BEEN UP TO THE [facility] X 3 WITH SOFT BROWN STOOL. HE EATS WELL, WANTS MORE THAN IS PROVIDED. SUGARS REMAIN ELEVATED, COVERED WITH SLIDING SCALE, INCREASE IN THE GLARGINE. SON AND DAUGHTER HAVE VISITED. HE HAS BEEN IMPULSIVE AND RIPPED OFF HIS BIPAP TWICE AND STOOD UP AT BEDSIDE, GETS FRUSTRATED THAT HE "CAN'T BREATHE". PT EDUCATED ABOUT HIS CURRENT HEALTH AND THE NEED FOR HIS BIPAP TO BREATHE. HE WEARS 02 @ 3L VIA NC WHEN NOT WEARING THE BIPAP. BIPAP SET AT 20/12 RATE 16 40%. URINE OUTPUT HAS BEEN OVER 3L THUS FAR. PT RECEIVED IV LASIX THIS AM, ALSO COUGH SUPPRESSANT TO HELP WITH HIS COMPLAINTS. RIGHT FOREARM INCISION REMAINS DRESSED AND LEFT WRIST INCISION REMAINS DRESSED. PT STATED THAT "NOTHING HAS BEEN DONE TO HIS WOUNDS". PT REMINDED THAT THE DRESSINGS WERE CHANGED YESTERDAY BY THIS RN.
--- NOTE | 2022-07-28 16:15 | NUR ---
MALLORIE IS CURRENTLY RESTING IN BED WATCHING FOOTBALL, ON 3L/NC. VSS. HE HAS BEEN UP TO THE CHAIR FOR A BRIEF AMOUNT OF TIME, BACK TO BED THEN UP TO THE COMMODE. DRESSINGS CHANGED ON THE RIGHT FOREARM AND LEFT WRIST. CALCIUM AGETATE AND NON ADHERENT DRESSING WITH KERLIX AND COBAN. WOUND BED LOOKS PINK LESS YELLOW EXUDATE TODAY.
--- NOTE | 2022-07-28 17:58 | NUR ---
MALLORIE HAD BEEN RESTING AND THEN WOKE UP "IN A PANIC" UNABLE TO SPEAK IN FULL SENTENCES, HAVING AUDIBLE WHEEZES, SHAKING HIS LEGS, NEEDING TO STAND UP, SIT DOWN. PT TOLD THAT PUTTING ON THE BIPAP RIGHT NOW IS THE BEST OPTION. THAT THE ONLY WAY THAT HIS BREATHING WILL GET BETTER IS BY USING THE MACHINE. THAT HE IS IN A CRITICAL STAGE THAT HE MUST USE THE BIPAP MORE THAN HE DOESN'T USE IT RIGHT NOW. BUT THAT WILL GET BETTER. HIS BLOOD SUGAR IS COMING DOWN TO THE 200'S. HE IS RESPONDING AND INTERACTING BETTER. HE HAS SHARED THAT HIS MOTHER JUST A COUPLE OF DAYS AGO AND THAT HE ISN'T SURE HOW TO GRIEVE. HE SHARED THAT HE HAS BEEN IN SENIOR CARE FOR 13 YEARS AND WAS JUST RELEASED IN , THAT HIS YOUNGER CHILDREN, A SON AND A DAUGHTER DON'T KNOW HOW TO INTERACT WITH HIM HE WAS IN SENIOR CARE THE MAJORITY OF THEIR LIVES, 13 AND 14 YEAR OLDS. THE DAUGHTER DID VISIT, THE SON CHOSE NOT TO DON A GOWN AND MASK TO VISIT. PT WAS UPSET. HE CURRENTLY CONTINUES WITH HIS BIPAP ON AND RESTING. HE KNOWS WE ARE HOLDING HIS DINNER TRAY FOR HIM.
--- NOTE | 2022-07-28 19:32 | NUR ---
PATIENT ARRIVED TO ICU 15 VIA GURNEY FROM ER HOLD. PATIENT SLEEPING WITH OCCASIONAL SNORE, AWAKENS TO SLIGHT STIMULI, ABLE TO ANSWER SIMPLE QUESTIONS, AWARE OF BEING IN THE HOSPITAL, BUT THINKING HE IS IN [place], AND THINKING IT IS 1983. PRECEDEX 0.6 MCG INFUSING. FIRST OF 2 UNITS PRBC'S INFUSING. PROTONIX DRIP RESTARTED.
--- NOTE | 2022-07-28 20:00 | NUR ---
PATIENT REMOVING BIPAP ABLE TO STAND AT BEDSIDE. VERBALIZED THAT WHEN HE COUGHS THE MUCUS IS SO THICK THAT IT MAKES IT FEEL LIKE HE IS CHOKING, ABLE TO PRODUCE SMALL WHITE SPUTUM. OXYGEN 3L/NC IN PLACE WHEN OFF BIPAP 20/12 FIO2 40%
--- NOTE | 2022-07-28 22:30 | NUR ---
PATIENT RESTLESS AND IRRITABLE. C/O "HEART BURN" AND INDIGESTION. DAVE GASTON CALLED AND ORDER OBTAINED FOR TUMS. PATIENT ALSO ATE SNACK OF CRACKERS AND BUBLY SPARKLING WATER.
--- NOTE | 2022-07-29 | NUR ---
DRESSING TO RIGHT FA OFF. AREA CLEANSED AND CALCIUM AGITATE PLACED BACK OVER SITE, NO DRAINAGE SEEN AT THIS TIME, COVERED WITH NONADHERENT DRESSING SECURED WITH DRESSING TAPE AND COBAN.
--- NOTE | 2022-07-29 04:34 | NUR ---
PATIENT SLEEPING IN RECLINER CHAIR ON 2L/NC. MAINTAINING BIOX 95-98% REFUSING BIPAP AT THIS TIME. AWAKENS TO SLIGHT STIMULI, CONTINUES TO C/O PAIN TO RIGHT ARM LEFT WRIST AND NOW C/O JAMES. NORCO PO GIVEN FOR PAIN.
[2022-07-29 04:54] LABS: BASOPHILS ABSOLUTE AUTO 0.05 K/mm3 (0.00-0.23); BASOPHILS PERCENT AUTO 1 % (0-2); EOSINOPHILS ABSOLUTE AUTO 0.13 K/mm3 (0.00-0.68); EOSINOPHILS PERCENT AUTO 2 % (0-6); Hematocrit 37.4 % (37.0-53.0); Hemoglobin 11.5 g/dL (13.5-17.5); IMMATURE GRAN ABSOLUTE AUTO 0.27 K/mm3 (0.00-0.10); IMMATURE GRAN PERCENT AUTO 4 % (0-1); LYMPHOCYTES ABSOLUTE AUTO 1.69 K/mm3 (0.84-5.20); LYMPHOCYTES PERCENT AUTO 27 % (21-46); MONOCYTES ABSOLUTE AUTO 0.79 K/mm3 (0.16-1.47); MONOCYTES PERCENT AUTO 13 % (4-13); Mean Corpuscular HGB 24.2 pg (26.0-34.0); Mean Corpuscular HGB Conc 30.7 g/dL (31.5-36.5); Mean Corpuscular Volume 79 fL (80-100); Mean Platelet Volume 12.5 fL (9.1-12.4); NEUTROPHILS ABSOLUTE AUTO 3.26 K/mm3 (1.96-9.15); NEUTROPHILS PERCENT AUTO 53 % (41-73); Platelet Count 342 K/mm3 (150-400); RDW Coefficient Variation 14.9 % (11.7-14.2); RDW Standard Deviation 42.4 fL (35.1-46.3); Red Blood Cell Count 4.75 M/mm3 (4.30-5.90); White Blood Cell Count 6.19 K/mm3 (4.00-11.30)
[2022-07-29 05:12] LABS: Bun/Creatinine Ratio 27.3 (12.0-20.0); Calcium, Blood 9.3 mg/dL (8.5-10.1); Creatinine, Blood 1.5 mg/dL (0.60-1.20); Potassium, Blood 4.8 mmol/L (3.5-5.5)
--- NOTE | 2022-07-29 07:29 | NUR ---
SUMMARY PATIENT UP AND DOWN IN ROOM T/O NIGHT. THIS AM SLEEPING IN RECLINER CHAIR. ON 2L/NC WITH SATS 96-99% HARSH MOIST COUGH CONTINUES WITH SMALL AMT OF THICK WHITE SPUTUM. BIPAP IN ROOM NEEDED. PATIENT C/O PAIN TO WOUND ON RIGHT FA AND LEFT WRIST, MEDICATED WITH NORCO.
--- NOTE | 2022-07-29 08:00 | NUR ---
PT SITTING UP IN THE CHAIR. HE IS ALERT AND ORIENTED-FLAT AFFECT. ECG SHOWS SR WITH RATE 80'S. SBP 170'S. GENERALIZED EDEMA NOTED. LUNGS DIMINISHED TO BASES WITH SCATTERED WHEEZES THROUGH OUT. SATS>90% ON 2 LITERS NASAL CANULA. PT REPORTS FREQUENT COUGH THAT IS SO THICK THAT HE CAN NOT COUGH IT UP. PT DENIES GI DISTRESS. ABDOMEN IS MODERATELY DISTRENDED AND FIRM WITH ACTIVE BT'S X 4. BENITEZ TO BSD WITH ADEQUATE AMOUNT OF YELLOW URINE OUTPUT. DRESSINGS TO BILATERAL WRISTS C/D/I. DESENEX POWDER APPLIED TO PANUS AND MARICRUZ AREA.
[2022-07-29] MEDS ORDERED: HUMULIN R100 UNIT/2 SC (08:12)
[2022-07-29] MEDS ORDERED: TOBRAMYCIN5 ML RIGHTEYE (08:13)
[2022-07-29] MEDS ORDERED: NAPROXEN500 MG PO (08:13)
[2022-07-29] MEDS ORDERED: CHLO25B PO (08:14)
[2022-07-29] MEDS ORDERED: Cetirizine HCl10 MG PO (08:14)
[2022-07-29] MEDS ORDERED: KLOR-CON 1010 ME1 PO (08:15)
[2022-07-29] MEDS ORDERED: THERA-D2000 UNIT PO (08:16)
--- NOTE | 2022-07-29 08:30 | NUR ---
PT REPORTS "SEVERE" HEARTBURN-MED WITH TUMS PO. SEE EMAR. BENITEZ DISCONTINUED AND PT ABLE TO VOID WITHOUT DIFFICULTY.
--- NOTE | 2022-07-29 08:52 | NUR ---
PT REPORTS 7/10 BILATERAL WRIST PAIN. MED WITH NORCO 2 PO. PT STATES THAT THE "LONG ACTING PAIN MEDICATION DOESN'T WORK FOR MED. WHATEVER THEY GAVE ME IV WORKS BETTER." PT STATES THAT "FENTANYL" IS THE ONLY THING THAT WORKS FOR THE PAIN. IN ADDITION, PT STATES THAT HE WILL NOT COMPLY WITH WOUND CARE UNTIL HIS PAIN IS UNDER CONTROL.
--- NOTE | 2022-07-29 12:00 | NUR ---
PT AMBULATED TO SHOWER WITH STANDBY ASSIST. TOLERATED WELL. WOUND CARE COMPLETED TO WOUNDS ON LEFT WRIST AND RIGHT FOREARM AREA.SEE SKIN RE-ASSESSMENT. PT SITTING UP IN CHAIR WATCHING TV WITHOUT NOTED DISTRESS.
--- NOTE | 2022-07-29 14:28 | NUR ---
ROOM 331 CLEAN AT 1419, THIS NURSE CALLED IMMEDIATELY FOR REPORT. REPORT RECIEVED FROM BRANDY JOSE AT 1420, AWAITING PT ARRIVAL AT THIS TIME.
--- NOTE | 2022-07-29 14:36 | NUR ---
PT REPORTS "HEARTBURN".DR. EPPS UPDATED AND GI COCKTAIL ORDERED.
--- NOTE | 2022-07-29 18:32 | NUR ---
SHIFT SUMMARY PT AXO, IRRITABLE AND CURSING AT THIS NURSE. TRANSFERRED TO THIS UNIT FROM ICU AT ABOUT 1530. PT COMPLAINED OF PAIN ON ARRIVAL AND REQUESTED FENTANYL. AT 1800 PT DEMANDED AMBULATION WITH THIS NURSE AND BECAME ANGRY THAT NURSE APPLIED GB. PT REMOVED O2 FOR AMBULATION. PT BECAME SOB AND REFUSED SPOT CHECK OF O2 SAT. COUGHING IN HALLWAY AND REMOVED MASK, THIS NURSE ASKED PATIENT TO KEEP MASK ON WHILE COUGHING R/T PT FLU STATUS. DRESSING TO RIGHT FOREARM CHANGED ALSO THE PRIOR DRESSING SLID DOWN ARM. BED IN LOW POSITION, CALL LIGHT WITHIN REACH THOUGH PT IS GETTING OOB WITHOUT CALLING DESPITE THIS NURSE ASKING HIM TO CALL BEFORE GETTING UP.
--- NOTE | 2022-07-29 21:40 | NUR ---
[address] GEORGE AND ALERTED HIM OF PT CBG OF 120 AND IS GETTING 90 UNITS OF LONG LASTING INSULIN. DR GEORGE ORDERED TO GIVE ORDERED DOSE. WCTM.
--- NOTE | 2022-07-30 06:40 | NUR ---
SUMMARY PT WAS AGITATED AT BEGINNING OF SHIFT. PT SPIRITS IMPROVED WITH SOME SLEEP AND A SNACK. PT HAS BEEN SLEEPING SINCE NIGHT MED PASS. PT DENIES INCREASED SOB OR CX PAIN. PT CURRENTLY AWAKE AND IN NO DISTRESS.
[2022-07-30 10:55] LABS: BASOPHILS ABSOLUTE AUTO 0.03 K/mm3 (0.00-0.23); BASOPHILS PERCENT AUTO 1 % (0-2); EOSINOPHILS ABSOLUTE AUTO 0.18 K/mm3 (0.00-0.68); EOSINOPHILS PERCENT AUTO 3 % (0-6); Hematocrit 37.4 % (37.0-53.0); Hemoglobin 11.4 g/dL (13.5-17.5); IMMATURE GRAN ABSOLUTE AUTO 0.14 K/mm3 (0.00-0.10); IMMATURE GRAN PERCENT AUTO 2 % (0-1); LYMPHOCYTES ABSOLUTE AUTO 1.02 K/mm3 (0.84-5.20); LYMPHOCYTES PERCENT AUTO 17 % (21-46); MONOCYTES ABSOLUTE AUTO 0.62 K/mm3 (0.16-1.47); MONOCYTES PERCENT AUTO 10 % (4-13); Mean Corpuscular HGB 24.2 pg (26.0-34.0); Mean Corpuscular HGB Conc 30.5 g/dL (31.5-36.5); Mean Corpuscular Volume 79 fL (80-100); Mean Platelet Volume 11.7 fL (9.1-12.4); NEUTROPHILS ABSOLUTE AUTO 3.99 K/mm3 (1.96-9.15); NEUTROPHILS PERCENT AUTO 67 % (41-73); Platelet Count 312 K/mm3 (150-400); RDW Coefficient Variation 14.8 % (11.7-14.2); RDW Standard Deviation 42.3 fL (35.1-46.3); Red Blood Cell Count 4.71 M/mm3 (4.30-5.90); White Blood Cell Count 5.98 K/mm3 (4.00-11.30)
[2022-07-30 11:25] LABS: Albumin, Blood 2.5 g/dL (3.4-5.0); Anion Gap 4 mmol/L (6-16); Blood Urea Nitrogen 30 mg/dL (8-24); CO2, Blood 38 mmol/L (21-32); Calcium, Blood 9.2 mg/dL (8.5-10.1); Chloride, Blood 94 mmol/L (98-108); Glomerular Filtration Rate 71 (60-); Glucose, Blood 217 mg/dL (70-99); Magnesium, Blood 2.1 mg/dL (1.6-2.4); Phosphorus, Blood 4.3 mg/dL (2.5-4.9); Potassium, Blood 4.2 mmol/L (3.5-5.5); Sodium, Blood 136 mmol/L (136-145)
--- NOTE | 2022-07-30 15:59 | NUR ---
WOUND ASSESSMENT AND PHOTO IN HARD CHART. WOUND CARE ORDERS IN [facility]. PT TOLERATED WOUND CARE WELL
--- NOTE | 2022-07-30 16:18 | NUR ---
SHIFT SUMMARY: PATIENT A&OX4. PLEASANT AND COOPERATIVE WITH CARE. USES CALL LIGHT APPROPRIATELY AND ABLE TO ADVOCATE FOR HIS NEEDS. PATIENT WAS ON 2L VIA NC BEGINNING OF SHIFT WITH SPO2 97%. PATIENT WAS PLACE ON RA FOR ABOUT 30 MINS AND O2 WAS MONITOR. PATIENT SPO2 ON RA WAS 95%. PATIENT OXYGENATION T/O SHIFT ON RA HAS BEEN IN 93-95%. DENIES SOB, CP/CHEST DISCOMFORT, N/V. DRESSING CHANGED TO R FOREARM X2. BRANDY KIDD FROM WOUND CLINIC DID DRESSING CHANGED TO R FORE ARM AND L FORE ARM THIS PM AND PATIENT TOLERATED WELL. PATIENT REPORTS OF PAIN TO L FORE ARM. MEDICATED WITH NORCO X2 FOR PAIN. REPORTS OF NOT GETTING ADEQUATE RELIEF. VITAL SIGNS REVIEWED. RECEIVED ALL SCHEDULED MEDS THIS SHIFT. PATIENT STILL ON DROPLET ISOLATION FOR INFLUENZA A. PATIENT HAS BEEN AMBULATING IN ROOM AND HALLWAYS INDEPENDENTLY. SITTING UP IN THE RECLINER CHAIR T/O THE DAY. CALL LIGHT IN REACH.
--- NOTE | 2022-07-31 05:23 | NUR ---
UTILITY BAGGER SUMMARY NO ACUTE CHANGES. PT A/OX4. PT MOOD SHIFTS; SOMETIMES ABRASIVE AND OTHER TIMES PLEASANT/COOPERATIVE. PT REFUSED T/WEAR CPAP AT NIGHT--PT PREFERS HOME EQUIPMENT. PT SATTING >90% ON RA WHEN AWAKE. PT REQ 2L 02 NC T/MAINTAIN SAT DURING SLEEP. PT SLEPT IN RECLINER T/O THE NIGHT. PT C/O HEARTBURN--GAVE 1 DOSE OF MALOX ELIXER. REMOVED RT FOREARM IV DUE T/PAIN WITH FLUSH; LEFT WRIST ACCESS GOOD. PT ABLE TO MAKE NEEDS KNOWN. CALL LIGHT IN REACH.
[2022-07-31] MEDS ORDERED: OMEP20ER PO (10:50)
[2022-07-31] MEDS ORDERED: FURO40 PO (10:51)
[2022-07-31] MEDS ORDERED: CLIN150 PO (10:51)
[2022-07-31] MEDS ORDERED: GUAI600T33 PO (10:52)
[2022-07-31] MEDS ORDERED: OSEL75CA PO (10:52)
[2022-07-31] MEDS ORDERED: MELATONIN5 M1 PO (10:52)
--- NOTE | 2022-07-31 12:15 | NUR ---
DISCHARGE PATIENT MEDICALLY CLEARED TO DISCHARGE & PATIENT AGREES WITH PLAN. REPORTS PAIN TO BE MANAGED. EATING, DRINKING, & VOIDING WELL. VSS ON RA. NO CONCERNS AT THIS TIME. DISCUSSED DISCHARGE INSTRUCTIONS & SENT WITH PATIENT. ESCORTED OUT VIA W/C.
== END 2022-07-31 12:08 | disposition home or self-care (01) | DRG 193 ==
LOC: ER 18:20 → ICUW 07-27 00:15 → MEDS 07-27 00:15 → ICUW 07-27 00:27 → MEDS 07-29 15:23
PROVIDERS: Emergency Medicine; Family Medicine; Internal Medicine; ADMIT Internal Medicine
PROC: 5A09457 Assistance with Respiratory Ventilation, 24-96 Consecutive Hours, Continuous Positive Airway Pressure (ICD-10-PCS; principal; 2022-07-27)
DX: J10.1 Influenza due to other identified influenza virus with other respiratory manifestations (principal); E11.00 Type 2 diabetes mellitus with hyperosmolarity without nonketotic hyperglycemic-hyperosmolar coma (NKHHC); G93.41 Metabolic encephalopathy; I21.A1 Myocardial infarction type 2; J96.01 Acute respiratory failure with hypoxia; J96.02 Acute respiratory failure with hypercapnia; I50.33 Acute on chronic diastolic (congestive) heart failure; N17.9 Acute kidney failure, unspecified; E87.1 Hypo-osmolality and hyponatremia; L03.114 Cellulitis of left upper limb; Z68.44 Body mass index [BMI] 60.0-69.9, adult; I11.0 Hypertensive heart disease with heart failure; Z20.822 Contact with and (suspected) exposure to COVID-19; E11.65 Type 2 diabetes mellitus with hyperglycemia; F15.10 Other stimulant abuse, uncomplicated; E66.9 Obesity, unspecified; E87.5 Hyperkalemia; D63.8 Anemia in other chronic diseases classified elsewhere; E83.41 Hypermagnesemia; G47.33 Obstructive sleep apnea (adult) (pediatric); K21.9 Gastro-esophageal reflux disease without esophagitis; Z87.891 Personal history of nicotine dependence; Z98.890 Other specified postprocedural states; Z79.2 Long term (current) use of antibiotics; Z79.4 Long term (current) use of insulin; Z79.899 Other long term (current) drug therapy
CPT/HCPCS: 0241U; 36415; 36600; 51702; 71045; 76770; 80048; 80053; 80069; 81003; 82010; 82140; 82570; 82803; 82947; 83735; 83880; 83930; 84300; 84484; 84540; 85025; 93005; 93010; 93306; 94640; 94644; 94660; 94664; 94762; 99285-25; A9270; C1751; J1644; J1650; J1815; J1940; J3010; J7030; J7050

== ENCOUNTER 2022-09-01 16:14 | Inpatient (IN) | payer OTHER ==
[~2022-09-01] VITALS: Ht 182.9 cm; Wt 153.0 kg
[~2022-09-01 16:14] MED LIST changes: +CHLO25B PO; +CLIN150 PO; +Cetirizine HCl10 MG PO; +FURO40 PO; +GUAI600T33 PO; +HUMULIN R100 UNIT/2 SC; +KLOR-CON 1010 ME1 PO; +MELATONIN5 M1 PO; +NAPROXEN500 MG PO; +OSEL75CA PO; +THERA-D2000 UNIT PO; +TOBRAMYCIN5 ML RIGHTEYE
[2022-09-01 16:49] LABS: Source, Urine Clean Catch
[2022-09-01 16:54] LABS: BASOPHILS ABSOLUTE AUTO 0.04 K/mm3 (0.00-0.23); BASOPHILS PERCENT AUTO 1 % (0-2); EOSINOPHILS ABSOLUTE AUTO 0.06 K/mm3 (0.00-0.68); EOSINOPHILS PERCENT AUTO 1 % (0-6); Hematocrit 41.8 % (37.0-53.0); Hemoglobin 11.7 g/dL (13.5-17.5); IMMATURE GRAN ABSOLUTE AUTO 0.06 K/mm3 (0.00-0.10); IMMATURE GRAN PERCENT AUTO 1 % (0-1); LYMPHOCYTES ABSOLUTE AUTO 0.77 K/mm3 (0.84-5.20); LYMPHOCYTES PERCENT AUTO 11 % (21-46); MONOCYTES ABSOLUTE AUTO 0.63 K/mm3 (0.16-1.47); MONOCYTES PERCENT AUTO 9 % (4-13); Mean Corpuscular HGB 24.7 pg (26.0-34.0); Mean Corpuscular Volume 88 fL (80-100); Mean Platelet Volume 12.3 fL (9.1-12.4); NEUTROPHILS ABSOLUTE AUTO 5.72 K/mm3 (1.96-9.15); NEUTROPHILS PERCENT AUTO 79 % (41-73); Platelet Count 253 K/mm3 (150-400); RDW Coefficient Variation 14.9 % (11.7-14.2); RDW Standard Deviation 47.8 fL (35.1-46.3); Red Blood Cell Count 4.74 M/mm3 (4.30-5.90); White Blood Cell Count 7.28 K/mm3 (4.00-11.30)
[2022-09-01 16:58] LABS: Appearance, Urine Clear (Clear); Bilirubin, Urine Neg (Neg); Blood, Urine Neg (Neg); Glucose Qualitative, Urine 4+ (Neg); Ketones, Urine Neg (Neg); Leukocyte Esterase, Urine Neg (Neg); Nitrite, Urine Neg (Neg); Protein, Urine Neg (Neg); Specific Gravity, Urine 1.005 (1.003-1.022); Urobilinogen, Urine NORM (Normal)
[2022-09-01 17:10] LABS: Osmolality, Serum 333 mos/KG (275-300)
[2022-09-01 17:11] LABS: Color, Urine Pale Yellow (P-Yellow); U Amphetamine Screen DETECTED; U Barbituate Screen Not Detected; U Benzodiazapine Screen Not Detected; U Buprenorphine Screen Not Detected; U Cannabinoids Screen Not Detected; U Cocaine Screen Not Detected; U Methadone Screen Not Detected; U Methamphetamine Screen DETECTED; U Opiates Screen Not Detected; U Oxycodone Screen Not Detected; U Phencyclidine Screen Not Detected; U Propoxyphene Screen Not Detected
[2022-09-01 17:13] LABS: Ethanol (Alcohol), Blood, Med <3 mg/dL
[2022-09-01 17:17] LABS: Thyroid Stimulating Hormone 0.651 uIU/mL (0.360-4.800)
[2022-09-01 17:20] LABS: Alanine Aminotransfer (ALT/SGP 24 U/L (12-78); Albumin, Blood 2.9 g/dL (3.4-5.0); Albumin/Globulin Ratio 0.7 (0.8-1.8); Alk Phos 129 U/L (50-136); Anion Gap 10 mmol/L (6-16); Aspartate Aminotrans (AST/SGOT 16 U/L (12-37); Bilirubin, Total 0.5 mg/dL (0.1-1.0); Blood Urea Nitrogen 15 mg/dL (8-24); CO2, Blood 28 mmol/L (21-32); Chloride, Blood 80 mmol/L (98-108); Creatinine, Blood 0.88 mg/dL (0.60-1.20); Globulin, Blood 4.4 g/dL (2.2-4.0); Glomerular Filtration Rate 101 (60-); Glucose, Blood 1510 mg/dL (70-99); Phosphorus, Blood 3.1 mg/dL (2.5-4.9); Potassium, Blood 4.5 mmol/L (3.5-5.5); Sodium, Blood 118 mmol/L (136-145); Total Protein, Blood 7.3 g/dL (6.4-8.2)
[2022-09-01 17:29] LABS: Glucose, Blood 1277 mg/dL (70-99)
[2022-09-01 17:49] LABS: Base Excess Venous 7.3 mmol/L; PCO2 Venous 51.5 mmHg (38-42)
[2022-09-01 20:30] LABS: Glucose, Blood 1072 mg/dL (70-99)
[2022-09-01 20:41] LABS: Source, Urine Foley catheter
[2022-09-01 20:50] LABS: Appearance, Urine Clear (Clear); Bilirubin, Urine Neg (Neg); Blood, Urine Neg (Neg); Glucose Qualitative, Urine 4+ (Neg); Ketones, Urine Neg (Neg); Leukocyte Esterase, Urine Neg (Neg); Nitrite, Urine Neg (Neg); Protein, Urine Neg (Neg); Urobilinogen, Urine NORM (Normal)
[2022-09-01 21:21] LABS: Color, Urine Pale Yellow (P-Yellow)
--- NOTE | 2022-09-01 22:00 | NUR ---
RECEIVED REPORT FROM ED RN TOMASA. PT CONFUSED AND LETHARGIC. HAS INSULIN DRIP INFUSING AT 13.7 UNITS/HR. BLOOD SUGAR TOO HIGH TO READ ON GLUCOMETER AND LAB TO COME DRAW. BP ELEVATED.
[2022-09-01 22:03] LABS: Glucose, Blood 888 mg/dL (70-99)
[2022-09-01 23:39] LABS: Glucose, Blood 614 mg/dL (70-99)
[2022-09-02 00:12] LABS: Magnesium, Blood 2.1 mg/dL (1.6-2.4)
[2022-09-02 00:44] LABS: Bun/Creatinine Ratio 15.3 (12.0-20.0); Calcium, Blood 9.6 mg/dL (8.5-10.1); Creatinine, Blood 0.85 mg/dL (0.60-1.20); Phosphorus, Blood 3.4 mg/dL (2.5-4.9); Potassium, Blood 3.8 mmol/L (3.5-5.5)
[2022-09-02 06:33] LABS: Bun/Creatinine Ratio 15.1 (12.0-20.0); Calcium, Blood 9.2 mg/dL (8.5-10.1); Creatinine, Blood 0.79 mg/dL (0.60-1.20); Magnesium, Blood 1.8 mg/dL (1.6-2.4); Phosphorus, Blood 2.4 mg/dL (2.5-4.9)
--- NOTE | 2022-09-02 06:46 | NUR ---
Shift summary: Pt confused, not able to answer questions or follow commands. Around 4am pt was thrashing in bed, trying to remove BP cuff, successfully removed 1 IV and was pulling at schofield catheter. He was not redirectable when staff explained to him that he was in the hospital, he was then restrained. Pt remains on insulin drip at 6units/hr and 1/2NS + 20meq KCl at 150 ml/hr. Na on admission was 118 and has since corrected and currently 138. He is on 3L NC with O2 sats 98%. BP elevated throughout the night with hydralazine and lopressor given. SR with HR 80-90s. Afebrile. Pt has multiple abscess-looking wounds to bilateral AC's/elbows with reddened areas. He also has some excoriation to coccyx and an old left wrist wound. Pt remains NPO, no BM overnight. Schofield draining to gravity
--- NOTE | 2022-09-02 07:39 | NUR ---
ASSUMED CARE AT 0700, GETACHEW RESTLESS. UPON ENTERING ROOM AND QUESTIONING HIM, IT IS APPARENT THAT HE IS EXPERIENCING EXPRESSIVE APHASIA AT THIS TIME. HE IS ONLY ABLE TO SAY ONE WORD CLEARLY WHILE TRYING TO SAY A SENTENCE. IT IS COMING OUT GIBBERISH. HIS 4 POINT RESTRAINTS HAVE BEEN REMOVED AND HE IS CALM AND COOPERATIVE. HIS MOUTH WAS INCREDIBLY DRY AND ASKED IF HE WANTED A SWAB FOR MOISTURE AND HE WAS ABLE TO SAY YES. HE WAS ABLE TO USE IT APPROPRIATELY AND HAND IT BACK WHEN FINISHED. IV FLUIDS CONTINUE AND INSULIN AT 6U/HR.
[2022-09-02 09:35] LABS: Bun/Creatinine Ratio 13.4 (12.0-20.0); Calcium, Blood 9.2 mg/dL (8.5-10.1); Creatinine, Blood 0.75 mg/dL (0.60-1.20); Magnesium, Blood 1.8 mg/dL (1.6-2.4); Phosphorus, Blood 1.6 mg/dL (2.5-4.9); Potassium, Blood 3.5 mmol/L (3.5-5.5)
--- NOTE | 2022-09-02 10:00 | NUR ---
GETACHEW KANG FORMER PHONED IN TO CHECK ON GETACHEW. SHE STATES THAT GETACHEW HAS BEEN KICKED OUT OF THEIR SON'S HOME AND HE HAS BEEN SPIRALING SINCE HIS PRIOR ADMISSION. UNSURE IF HAS BEEN TAKING HIS MEDS OR EVEN TAKING CARE OF HIMSELF. SHE SAID THAT HE IS ON THE OUTS WITH THE FAMILY AT THIS TIME.
[2022-09-02 11:52] LABS: Bun/Creatinine Ratio 12.9 (12.0-20.0); Creatinine, Blood 0.78 mg/dL (0.60-1.20); Magnesium, Blood 1.7 mg/dL (1.6-2.4); Phosphorus, Blood 1.3 mg/dL (2.5-4.9); Potassium, Blood 3.5 mmol/L (3.5-5.5)
--- NOTE | 2022-09-02 12:57 | NUR ---
review of patient in rounds. pt aggitated and yelling out and swearing. begging for food. Knows he is in the hospital unable to recall any other details.
--- NOTE | 2022-09-02 13:28 | NUR ---
PT IS BECOMING MORE ALERT. HE IS ABLE TO ANSWER QUESTIONS WITH MORE WORDS THAN THIS AM. HE WAS ABLE TO EAT LUNCH WITH ASSISTANCE. THE RIGHT ARM WOUND WAS CULTURED BY THIS RN. DRESSED WITH NON ADHERENT AND A GAUZE SLEEVE. THE WOUND TO THE LEFT ARM IS NOT OPEN OR WEEPING. IT IS LARGE, HOT AND SWOLLEN. BOTH WOUNDS LOOK SIGNIFICANTLY WORSE THAN WHEN PT WAS HERE PREVIOUSLY. BLOOD SUGARS ARE COMING DOWN. LONG ACTING INSULIN GIVEN AND FLUIDS SWITCHED PER 'S ORDERS. PT CONTINUES TO BE COOPERATIVE WITH THIS RN AND HAS REMAINED OUT OF 4 PT RESTRAINTS SINCE THE START OF THIS SHIFT. HE IS RECEIVING NEW ANTIBIOTICS AND BOTH ARMS HAVE BEEN U/S PER ORDERS. PT IS TAKING IN QUITE A BIT OF WATER AND DENIES ANY STOMACH COMPLAINTS.
--- NOTE | 2022-09-02 14:00 | NUR ---
CAME TO SEE PT TO EVALUATE HIS WOUNDS. QUESTIONED GETACHEW ABOUT HIS IV DRUG USE AND PT WAS UNABLE TO GET HIS WORDS OUT AGAIN, MORE EXPRESSIVE APHASIA AND INABILITY TO FORM WORDS, EXCEPT THE "F" WORD. HE BECAME AGGRESSIVE AND HOSTILE WITH ME AND THE CAB SUPERVISOR CAME IN TO ASSIST. CALMLY EXPLAINED THAT HE IS VERY ILL AGAIN AND THAT HE MAY BE GOING TO SURGERY LATER TODAY. PT'S WATER JUG TAKEN AWAY. EXPLAINED WHY.
--- NOTE | 2022-09-02 16:00 | NUR ---
PT TAKEN DOWN TO CT FOR IMAGING OF BOTH UPPER EXTREMITIES. GETACHEW CONTINUES WITH THE EXPRESSIVE APHASIA, ALTHOUGH HE WAS ABLE TO FOLLOW DIRECTIONS FOR THE PLACEMENT OF HIS ARMS FOR THE SCAN. UPON COMPLETION OF SCAN IT WAS NOTED THAT THE BENITEZ CATHETER BECAME UNCLAMPED. PT GIVEN COMPLETE BED BATH AND LINEN CHANGE UPON RETURN. HE CONTINUES TO COMPLAIN THAT HIS BODY HURTS AND THAT HE IS UNCOMFORTABLE. HE CONTINUES TO COMPLAIN OF THIRST, DESPITE BEING TOLD HE IS NPO PENDING SURGERY. WILL CONTINUE TO REMIND HIM. PT WITH NOTABLE SLEEP APNEA WELL. BP REMAINS ELEVATED WILL TREAT AGAIN WITH MEDS.
--- NOTE | 2022-09-02 16:50 | NUR ---
PT'S BLOOD SUGAR CONTINUES TO CREEP UP, CALL TO DR. DONNELLY. FLUIDS STOPPED, HI CORRECTION SLIDING SCALE COVERAGE ORDERED FOR Q4HR. PT REMAINS NPO FOR POSSIBLE SURGERY WITH . PT DID CALM DOWN AND IS RESTING POST CT.
--- NOTE | 2022-09-02 18:00 | NUR ---
GETACHEW BEGAN HOLLERING OUT, YELLING THE "F" WORD TO ALL WHO COULD HERE. WENT IN ROOM TO TALK WITH HIM, HE PULLED OFF HIS BP CUFF, HE SWATTED AT THIS RN. TOLD THAT HE WOULD BE ALLOWED TO EAT AND DRINK ONCE WE HEAR FROM . JUST HEARD BACK FROM , PT NOT HAVING SURGERY TONIGHT, CAN HAVE DINNER AND WILL NEED TO BE NPO AFTER MIDNIGHT. WILL PASS ON IN REPORT.
[2022-09-03 06:01] LABS: BASOPHILS ABSOLUTE AUTO 0.04 K/mm3 (0.00-0.23); BASOPHILS PERCENT AUTO 0 % (0-2); EOSINOPHILS ABSOLUTE AUTO 0.25 K/mm3 (0.00-0.68); EOSINOPHILS PERCENT AUTO 3 % (0-6); Hematocrit 35.4 % (37.0-53.0); Hemoglobin 11.2 g/dL (13.5-17.5); IMMATURE GRAN ABSOLUTE AUTO 0.06 K/mm3 (0.00-0.10); IMMATURE GRAN PERCENT AUTO 1 % (0-1); LYMPHOCYTES ABSOLUTE AUTO 1.28 K/mm3 (0.84-5.20); LYMPHOCYTES PERCENT AUTO 13 % (21-46); MONOCYTES ABSOLUTE AUTO 0.56 K/mm3 (0.16-1.47); MONOCYTES PERCENT AUTO 6 % (4-13); Mean Corpuscular HGB 24.9 pg (26.0-34.0); Mean Corpuscular HGB Conc 31.6 g/dL (31.5-36.5); Mean Platelet Volume 11.3 fL (9.1-12.4); NEUTROPHILS ABSOLUTE AUTO 7.52 K/mm3 (1.96-9.15); NEUTROPHILS PERCENT AUTO 77 % (41-73); Platelet Count 225 K/mm3 (150-400); RDW Coefficient Variation 15.8 % (11.7-14.2); RDW Standard Deviation 44.5 fL (35.1-46.3); Red Blood Cell Count 4.49 M/mm3 (4.30-5.90); White Blood Cell Count 9.71 K/mm3 (4.00-11.30)
[2022-09-03 06:02] LABS: Mean Corpuscular Volume 79 fL (80-100)
[2022-09-03 06:27] LABS: Albumin, Blood 2.3 g/dL (3.4-5.0); Albumin/Globulin Ratio 0.7 (0.8-1.8); Bilirubin, Total 0.4 mg/dL (0.1-1.0); Bun/Creatinine Ratio 10.9 (12.0-20.0); Calcium, Blood 8.6 mg/dL (8.5-10.1); Creatinine, Blood 0.82 mg/dL (0.60-1.20); Globulin, Blood 3.5 g/dL (2.2-4.0); Potassium, Blood 3.4 mmol/L (3.5-5.5); Total Protein, Blood 5.8 g/dL (6.4-8.2)
--- NOTE | 2022-09-03 07:30 | NUR ---
Shift summary: Pt confused, not able to answer questions or follow commands. This morning when this RN tried to draw blood from JACKY powerglide there was only 30ml of clear fluid and no blood. Informed Dr. Meeks that the line might be infiltrated and his other Rt hand IV could also be infiltrated but he was in need of IV access because he is supposed to have surgery today. Central line placed to RIJ. Q4 blood sugar checks. Pt remains NPO. [place] intact and draining clear yellow urine. Pt on 2L NC with O2 sats above 90%. BP's obtained on LLE d/t abscesses and edema in BUE. I&D planned today on bilateral AC abscesses.
[2022-09-03 11:46] LABS: Vancomycin, Trough 24.3 ug/mL (5.0-10.0)
[2022-09-03 13:01] LABS: Phosphorus, Blood 3.8 mg/dL (2.5-4.9); Potassium, Blood 4.1 mmol/L (3.5-5.5)
--- NOTE | 2022-09-03 13:03 | NUR ---
PT TAKEN TO OR
[2022-09-03 15:06] LABS: PCO2 Arterial 47.4 mmHg (35-45); pH Blood Arterial 7.42 (7.35-7.45)
[2022-09-03 15:07] LABS: PO2 Arterial >500 mmHg (80-100)
--- NOTE | 2022-09-03 18:28 | NUR ---
SHIFT SUMMARY PT NOW INTUBATED AND SEDATED, UNABLE TO EXTUBATE IN OR. PT TAKEN TO OR FOR BILATERAL WOUND DEBRIDEMENT @ 1300, ON 2LPM O2 VIA NC UPON DEPARTURE BUT DIFFICULT TO AROUSE. WOULD OCCASIONALLY WAKE UP AND CHANGE POSITION IN BED, MUMBLE AND GO BACK TO SLEEP. BACK FROM OR @ 1500, INTUBATED c 7.5 ETT 27 @ TEETH. VENT [id number]-20/500/30/5 c SATS >95%. LS CLEAR T/O. OCCASIONAL COUGH WITH SCANT FROTHY SECRETIONS. SEDATED c PROPOFOL @ 35MCG'S AND PRN ATIVAN. PT RESPONDING TO VERBAL STIMULI, PULLING ON RESTRAINTS, TURNING HEAD SIDE TO SIDE, BACK TO SLEEP WITH DECREASED STIMULI. OGT INSERTED SHORTLY AFTER ARRIVAL, VERIFIED WITH CHEST X-RAY, CLAMPED. WOUND VAC TO BL WOUNDS c BLOODY OUTPUT, BOTH DRESSINGS INTACT. BENITEZ CATH PATENT, DRAINING CASANDRA URINE. NO BM THIS SHIFT.
--- NOTE | 2022-09-03 19:38 | NUR ---
Assumed care of pt. Pt is intubated and sedated with propofol infusing. RIJ central line still intact. [place] draining to gravity. Bilateral AC wound vacs new and intact.
[2022-09-04 03:51] LABS: BASOPHILS ABSOLUTE AUTO 0.03 K/mm3 (0.00-0.23); BASOPHILS PERCENT AUTO 1 % (0-2); EOSINOPHILS ABSOLUTE AUTO 0.19 K/mm3 (0.00-0.68); EOSINOPHILS PERCENT AUTO 3 % (0-6); Hematocrit 33.1 % (37.0-53.0); Hemoglobin 10.7 g/dL (13.5-17.5); IMMATURE GRAN ABSOLUTE AUTO 0.06 K/mm3 (0.00-0.10); IMMATURE GRAN PERCENT AUTO 1 % (0-1); LYMPHOCYTES ABSOLUTE AUTO 1.03 K/mm3 (0.84-5.20); LYMPHOCYTES PERCENT AUTO 17 % (21-46); MONOCYTES ABSOLUTE AUTO 0.45 K/mm3 (0.16-1.47); MONOCYTES PERCENT AUTO 8 % (4-13); Mean Corpuscular HGB 25.2 pg (26.0-34.0); Mean Corpuscular HGB Conc 32.3 g/dL (31.5-36.5); Mean Corpuscular Volume 78 fL (80-100); Mean Platelet Volume 11.5 fL (9.1-12.4); NEUTROPHILS ABSOLUTE AUTO 4.27 K/mm3 (1.96-9.15); NEUTROPHILS PERCENT AUTO 71 % (41-73); Platelet Count 207 K/mm3 (150-400); RDW Standard Deviation 45.9 fL (35.1-46.3); Red Blood Cell Count 4.24 M/mm3 (4.30-5.90); White Blood Cell Count 6.03 K/mm3 (4.00-11.30)
[2022-09-04 04:15] LABS: Magnesium, Blood 1.6 mg/dL (1.6-2.4)
[2022-09-04 04:23] LABS: Albumin, Blood 2.2 g/dL (3.4-5.0); Albumin/Globulin Ratio 0.6 (0.8-1.8); Bilirubin, Total 0.3 mg/dL (0.1-1.0); Calcium, Blood 8.5 mg/dL (8.5-10.1); Creatinine, Blood 0.89 mg/dL (0.60-1.20); Globulin, Blood 3.6 g/dL (2.2-4.0); Phosphorus, Blood 2.7 mg/dL (2.5-4.9); Potassium, Blood 3.3 mmol/L (3.5-5.5); Total Protein, Blood 5.8 g/dL (6.4-8.2)
--- NOTE | 2022-09-04 06:54 | NUR ---
Shift summary: Pt is intubated with a size 7.5 ETT Vent settings 18/500/5/30% He is sedated with propofol at 40mcg/min He is currently resting comfortably in bed. Lung sounds clear with occasional wheezes. SR with HR in the 80s. BP stable. OGT clamped. [place] draining clear yellow urine. Mag and potassium currently being replaced. Blood sugars well controlled now with Q4 chem BG sticks.
--- NOTE | 2022-09-04 07:53 | NUR ---
ASSUMED CARE PT. REMAINS SEDATED AND INTUBATED. BECOMES RESTLESS WITH TALKING IN ROOM, AND ORAL CARE. PULLING AGAINST RESTRAINTS. PT. SWEATING, AFEBRILE. PT. HAS CENTRAL LINE TO RIGHT IJ DUE TO DIFFICULT VASCULAR ACCESS. BILAT WOUND VACS TO ACS IN PLACE. BENITEZ IN PLACE DRAINING YELLOW URINE TO GRAVITY.
--- NOTE | 2022-09-04 17:25 | NUR ---
SHIFT SUMMARY PT. REMAINS SEDATED AND INTUBATED. MEDICATED TWICE FOR PAIN, PT WOULD BECOME RESTLESS IN BED, AND COUGH ON VENT. CALMED AFTER PAIN COT ASSEMBLER. PT. WOUND VACS REMAIN IN PLACE TO BILAT ACS, PER DR. FLORES THEY WILL BE CHANGED ON FRIDAY BY WOUND CARE NURSE. PT. VSS T/O THE DAY. CENTRAL LINE INFUSING TO RIGHT IJ. TF STARTED THIS SHIFT AT 1700 AT 25ML/HR WITH GOAL OF 40ML/HR VHP. BENITEZ CONTINUES TO DRAIN TO GRAVITY. REPORT TO ONCOMING RN.
--- NOTE | 2022-09-04 19:00 | NUR ---
ASSUMPTION OF CARE PT REMAINS INTUBATED WITH VENT SETTINGS AC/VC 18/500/5/30%. HE IS RECEIVING PROPOFOL 55MCG/KG/MIN AND NS TKO. PT GRIMACES WITH NOXIOUS STIMULI. COUGH/GAG INTACT. LUNGS CLEAR THROUGHOUT. COMPLIANT WITH VENT, MINIMAL ETT SECRETIONS. SINUS RHTYHM ON MONITOR WITH RATE 60S-70S. BP STABLE, SBP 130S-140S. VHP INFUSING VIA OGT AT 25ML/HR. BOWEL TONES ACTIVE. BENITEZ PATENT AND DRAINING PALE YELLOW URINE TO GRAVITY. BILATERAL ARM WOUND VACS IN PLACE. DRESSING C/D/I. SEROSANGUINEOUS DRAINAGE IN TUBING AND COLLECTION CHAMBER. SEE SHIFT ASSESSMENT.
[2022-09-05 04:05] LABS: BASOPHILS ABSOLUTE AUTO 0.03 K/mm3 (0.00-0.23); BASOPHILS PERCENT AUTO 1 % (0-2); EOSINOPHILS ABSOLUTE AUTO 0.23 K/mm3 (0.00-0.68); EOSINOPHILS PERCENT AUTO 5 % (0-6); Hematocrit 31.4 % (37.0-53.0); Hemoglobin 9.9 g/dL (13.5-17.5); IMMATURE GRAN ABSOLUTE AUTO 0.04 K/mm3 (0.00-0.10); IMMATURE GRAN PERCENT AUTO 1 % (0-1); LYMPHOCYTES ABSOLUTE AUTO 1.33 K/mm3 (0.84-5.20); LYMPHOCYTES PERCENT AUTO 31 % (21-46); MONOCYTES ABSOLUTE AUTO 0.36 K/mm3 (0.16-1.47); MONOCYTES PERCENT AUTO 8 % (4-13); Mean Corpuscular HGB 25.2 pg (26.0-34.0); Mean Corpuscular HGB Conc 31.5 g/dL (31.5-36.5); Mean Corpuscular Volume 80 fL (80-100); Mean Platelet Volume 10.9 fL (9.1-12.4); NEUTROPHILS ABSOLUTE AUTO 2.32 K/mm3 (1.96-9.15); NEUTROPHILS PERCENT AUTO 54 % (41-73); Platelet Count 172 K/mm3 (150-400); RDW Coefficient Variation 16.4 % (11.7-14.2); RDW Standard Deviation 47.5 fL (35.1-46.3); Red Blood Cell Count 3.93 M/mm3 (4.30-5.90); White Blood Cell Count 4.31 K/mm3 (4.00-11.30)
[2022-09-05 04:37] LABS: Albumin, Blood 2.1 g/dL (3.4-5.0); Albumin/Globulin Ratio 0.6 (0.8-1.8); Bilirubin, Total 0.3 mg/dL (0.1-1.0); Globulin, Blood 3.6 g/dL (2.2-4.0); Magnesium, Blood 1.9 mg/dL (1.6-2.4); Phosphorus, Blood 3.1 mg/dL (2.5-4.9); Potassium, Blood 3.2 mmol/L (3.5-5.5); Total Protein, Blood 5.7 g/dL (6.4-8.2)
--- NOTE | 2022-09-05 05:24 | NUR ---
SHIFT SUMMARY PT REMAINS INTUBATED WITH VENT SETTINGS AC/VC 18/500/5/30%. HE IS RECEIVING PROPOFOL 50MCG/KG/MIN AND NS TKO. KCL INFUSING. PT OCCASIONALLY OPENS EYES SPONTANEOULSY AND TRACKS MOVEMENTS. HE MAKES SMALL MOVEMENTS WITH ALL EXTREMITIES. LUNGS CLEAR THROUGHOUT. SINUS RHTYHM ON MONITOR WITH RATE 60S, BP STABLE. VHP TUBE FEEDING INFUSING AT GOAL RATE VIA OGT. BOWEL TONES ACTIVE. BENITEZ PATENT AND DRAINING PALE YELLOW URINE TO GRAVITY WITH SHIFT OUTPUT 1050ML. BILATERAL ARM WOUND VACS REMAIN IN PLACE. DRESSINGS C/D/I. SMALL AMOUNT OF SEROSANGUINEOUS IN TUBING AND COLLECTION CHAMBER.
--- NOTE | 2022-09-05 08:00 | NUR ---
PT REMAINS INTUBATED, SEDATED, AND RESTRAINED. PT IS GRIMACING, PULLING ON RESTRAINTS, COUGHING, AND KICKING HIS LEGS. PT NOT FOLLOWING COMMANDS AT THIS TIME. PROPOFOL DRIP @ 50 MCG/KG/MIN. DR. LEACH IN TO SEE PT.PRECEDEX DRIP INITIATED @ 0.4 MCG/KG/MIN-GOAL TO TITRATE PROPOFOL OFF AND ATTEMPT WEANING PARAMETERS LATER THIS AM. PT MEDICATED WITH FENTANYL AND ATIVAN FOR PAIN/SEDATION ADJUNCT-SEE EMAR. ECG SHOWS SR. SBP 130-150'S. 2+ GENERALIZED EDEMA NOTED THROUGH OUT- ESPECIALLY TO PT HANDS. UPPER EXTREMITIES WITH BILATERAL WOUND VACS IN PLACE TO 120 MMHG SUCTION-DRAINING MODERATE AMOUNT OF SANG DRAINAGE.UPPER EXTREMITIES ELEVATED ON PILLOWS. LUNGS DIMINISHED IN THE BASES. ETT TO VENT: AC 18, TV 500, PEEP 5, FIO2 30%-SATS >90%. MINIMAL ETT SECRETIONS.PT TOLERATING OGTF WELL @ GOAL OF 40 CC/HR. SKIN APPEARS VARGAS, WARM, AND DRY.
[2022-09-05 11:37] LABS: Vancomycin, Trough 23.5 ug/mL (5.0-10.0)
--- NOTE | 2022-09-05 12:00 | NUR ---
PT OPENED HIS EYES TO VOICE AND NODDED "YES" WHEN ASKED IF IN PAIN. PRECEDEX DRIP @ 1.0 MCG/KG/MIN AND PROPOFOL @ 15 MCG/KG/MIN. PT MED WITH FENTANYL 50 MCG IVP X 1 FOR PAIN. ECG CONTINUES SR. SBP 170'S. MAINTAINS SATS>90% ON FIO2 30% ETT SUCTION PRODUCTIVE OF SMALL AMOUNT OF THICK, BLOODY SECRETIONS. PT CONTINUES TO TOLERATE OGTF WELL. CBG 228 COVERED PER SLIDING SCALE. BENITEZ OUTPUT ADEQUATE. BILATERAL AC WOUND VACS C/D/I.
--- NOTE | 2022-09-05 12:10 | NUR ---
PT VERY RESTLESS-PULLING ON RESTRAINTS AND SHIFTING HIS HIPS BACK AND FORTH IN THE BED. MED WITH ATIVAN 2 MG IVP X 1-SEE EMAR. PT BOOSTED IN BED AND REPOSITIONED BACK TO RIGHT SIDE.
--- NOTE | 2022-09-05 14:25 | NUR ---
PRECEDEX TITRATED UP TO 1.4 MCG/KG/MIN AND PROPOFOL ON SB.
--- NOTE | 2022-09-05 15:25 | NUR ---
PT REMAINED OFF OF PROPOFOL FOR APROXIMATELY 1 HOUR. DURING THAT TIME, HE REMAINED ON PRECEDEX @ 1.4 MCG/KG/MIN AND OPENED HIS EYES TO VOICE, FOLLOWED SOME COMMANDS, AND ABLE TO SHAKE HIS HEAD APPROPRIATELY TO "YES" OR "NO" QUESTIONS. PT INDICATED THAT HE WAS HAVING PAIN-MED WITH FENTANYL 50 MCG IVP X 1. MINIMAL IMPROVEMENT WITH FENTANYL. PT BECAME VERY RESTLESS, AGITATED, AND STARTED PULLING ON RESTRAINTS. MED WITH ATIVAN 2 MG IVP X 1. AFTER ATIVAN, PT NOT PULLING ON RESTRAINTS, BUT HIS EYES WHERE OPEN AND HE WAS GRIMACING. PROPOFOL RESUMED @ 15 MCG/KG/MIN. AFTER APROXIMATELY 5 MINUTES ON THE PROPOFOL DRIP, PT NO LONGER GRIMACING AND APPEARS TO BE RESTING QUIETLY ON VENT. SATS>90% ON FIO2 30%. HR 50'S SB TO SR. SBP 160'S. PT TOLERATING OGTF WELL. URINE OUTPUT 900 CC SO FAR THIS SHIFT. BILATERAL AC WOUND VACS REMAIN C/D/I.
--- NOTE | 2022-09-05 18:32 | NUR ---
PT RESTING QUIETLY ON VENT WITH PROPOFOL @ 15 MCG/KG/MIN AND PRECEDEX @ 1.4 MCG/KG/MIN. PT HAS BEEN MEDICATED SEVERAL TIMES THOROUGH OUT THE SHIFT WITH FENTANYL AND ATIVAN FOR PAIN/SEDATION ADJUNCT-SEE EMAR. MAINTAINS SATS>90% ON FIO2 30%. BILATERAL AC WOUND VACS REMAIN C/D/I. URINE OUTPUT 1000 CC THIS SHIFT.
--- NOTE | 2022-09-05 19:42 | NUR ---
1900: Assumed patient care after receiving report from Cece NAVA. Patient is intubated, sedated on Propofol and precedex. Bilateral wrist restrains in place, and wound van to bilateral AC wounds. He is resting comfortably, vitals stableand no obvious s/s of distress.
[2022-09-06 05:02] LABS: BASOPHILS ABSOLUTE AUTO 0.02 K/mm3 (0.00-0.23); BASOPHILS PERCENT AUTO 1 % (0-2); EOSINOPHILS ABSOLUTE AUTO 0.28 K/mm3 (0.00-0.68); EOSINOPHILS PERCENT AUTO 7 % (0-6); Hematocrit 32.7 % (37.0-53.0); Hemoglobin 10.3 g/dL (13.5-17.5); IMMATURE GRAN ABSOLUTE AUTO 0.03 K/mm3 (0.00-0.10); IMMATURE GRAN PERCENT AUTO 1 % (0-1); LYMPHOCYTES ABSOLUTE AUTO 1.11 K/mm3 (0.84-5.20); LYMPHOCYTES PERCENT AUTO 28 % (21-46); MONOCYTES PERCENT AUTO 8 % (4-13); Mean Corpuscular HGB 25.2 pg (26.0-34.0); Mean Corpuscular HGB Conc 31.5 g/dL (31.5-36.5); Mean Corpuscular Volume 80 fL (80-100); Mean Platelet Volume 11.9 fL (9.1-12.4); NEUTROPHILS ABSOLUTE AUTO 2.22 K/mm3 (1.96-9.15); NEUTROPHILS PERCENT AUTO 56 % (41-73); Platelet Count 193 K/mm3 (150-400); RDW Coefficient Variation 16.4 % (11.7-14.2); RDW Standard Deviation 47.8 fL (35.1-46.3); Red Blood Cell Count 4.08 M/mm3 (4.30-5.90); White Blood Cell Count 3.96 K/mm3 (4.00-11.30)
[2022-09-06 05:29] LABS: Bun/Creatinine Ratio 13.1 (12.0-20.0); Creatinine, Blood 0.91 mg/dL (0.60-1.20); Phosphorus, Blood 3.3 mg/dL (2.5-4.9); Potassium, Blood 3.7 mmol/L (3.5-5.5)
--- NOTE | 2022-09-06 07:40 | NUR ---
Assumed care. Report received from nightshift RN. Pt sedated and ventilated via ETT. Vent settings: AC/VC 16/500/5/30%. Preceded infusing at 0.3 mcg/kg/hr, propofol infusing at 35 mcg/kg/min. Bilateral AC wound dressings C/D/I, good seal to wound vac. SWB restraints in place. [place] draining to gravity. VS stable, will continue to monitor.
[2022-09-06 09:46] LABS: Triglycerides 179 mg/dL (30-160)
--- NOTE | 2022-09-06 09:56 | NUR ---
Case review requested. The principal presented with bilateral arm wounds, with gases noted in the soft muscle tissues. His capacity for engaging in medical decision making was non-extant and surgical remediation to stablize his condition was of an urgent nature. In these situations the law of presumptive consent prevails. As an extra measure, two providers reviewed, collaborated, and attested to the cases emergent necessity. This practice was and is in alignment with hospital policy and statutory demand. The appropriate consent form shall be incorporated into the medical record. Either the physician or hospital staff shall document that the principal was unable to provide informed consent with the underlying reasons stipulated. This same form shall be signed and dated. Thank you for this consult. Clive Kapoor, PhD, ERIK
--- NOTE | 2022-09-06 18:51 | NUR ---
Shift summary. Pt extubated today at approximately 1300. Tolerated extubation well, currently on room air, sats above 95%. Bilateral A/C wound dressings changed this am, dressings C/D/I, suction at 120mmhg, no leaks. [place] catheter in place, draining to gravity. R/IJ central line in place, no sedation infusing ATT. Status changed to PCU. Pt alert and oriented, call light within reach. See assessment/notes for further details. Will report off to nightshift RN.
--- NOTE | 2022-09-06 23:14 | NUR ---
ASSUMPTION OF CARE/ASSESSMENT: ASSUMED CARE OF PT AT 1900. PT IS A&O X 4 AND IS FOLLOWING DIRECTIONS AND COOPERATING WITH CARE; PT ABLE TO HELP WITH Q2 TURNS AND DISPLAYING INDEPENDENT BED MOBILITY/SHIFT HIPS. PT CURRENTLY ON RA WITH SPO2 98<, RR 28-32, AND C/O SOB; PT BREATHING APPEARS TO BE SHALLOW AND LUNG SOUNDS ARE DIM IN THE BASES AND CLEAR BILATERALLY. PT HAS HYPERACTIVE BS IN ALL QUADRANTS. RECHECKED BCG AT 0845 AND IT WAS 57; RECIEVED 4 OZ ORANGE JUICE AND CALL PLACED TO DR TANNER AND VERBAL ORDERS RECIEVED TO ADVANCE DIET AT TOLERATED. PT ATE A SANDWICH AND CBG RECHECK AND IS 98. PT SKIN IS WARM, DIAPHORETIC; PPP X 4. BENITEZ CATH IN PLACE AND DRAINING TO GRAVITY; URINE YELLOW, CLEAR. PT HAS RIJ CENTRAL LINE THAT IS INFUSING NS TKO. PT TOOK PO NIGHT TIME MEDS EASILY AND SLEEPING IN ROOM. CALL LIGHT IN REACH, WILL CONTINUE TO MONITOR.
[2022-09-07 04:59] LABS: Albumin, Blood 2.3 g/dL (3.4-5.0); Anion Gap 4 mmol/L (6-16); Blood Urea Nitrogen 8 mg/dL (8-24); Bun/Creatinine Ratio 9.2 (12.0-20.0); CO2, Blood 28 mmol/L (21-32); Calcium, Blood 8.6 mg/dL (8.5-10.1); Chloride, Blood 109 mmol/L (98-108); Creatinine, Blood 0.87 mg/dL (0.60-1.20); Glomerular Filtration Rate 101 (60-); Glucose, Blood 99 mg/dL (70-99); Magnesium, Blood 1.7 mg/dL (1.6-2.4); Phosphorus, Blood 2.4 mg/dL (2.5-4.9); Potassium, Blood 3.5 mmol/L (3.5-5.5); Sodium, Blood 141 mmol/L (136-145)
--- NOTE | 2022-09-07 06:41 | NUR ---
SHIFT SUMMARY: NO ACUTE CHANGES OVER NIGHT. PT WAS COOPERATIVE AND POLITE FOR THE ENTIRETY OF THE SHIFT. THE PT HAD TWO LOOSE BOWEL MOVEMENTS AND COMPLETE LINEN CHANGES THIS SHIFT. PT LOW CBG AND RECIEVED FOOD/DRINK TO HELP BRING UP BLOOD SUGAR; ;DIET ADVANCED AND PT TOLERATING WELL. CBG WITHIN NORMAL LIMIT SO NO INSULIN COVERAGE THIS SHIFT. PT MEDICATED ONCE WITH FENTANYL FOR PAIN MANAGEMENT. PT HYPERTENSIVE THIS SHIFT AND NEW ORDERS FOR NORVAS (HOME MEDICATION) INITATED; PT RECIEVED TWO DOSES OF HYDRALAZINE AND 10 MG OF LABETOLOL AND SBP MAINTAINED 17-190 THROUGHOUT THE SHIFT. VSS THROUGHOUT THE SHIFT. WILL CONTINUE TO MONITOR UNTIL ONCOMING RN ARRIVES.
--- NOTE | 2022-09-07 10:15 | NUR ---
SHIFT ASSESSMENT PT ALERT TO PERSON, PLACE, AND EVENT, UNSURE OF DAY. SLOW TO RESPOND TO QUESTIONS BUT COMMUNICATING NEEDS. C/O SEVERE PAIN TO BL ARMS, MEDICATED WITH PRN PAIN MEDS. BL ARMS WITH WOUND VAC, DRESSING INTACT WITH ADEQUATE SUCTION. PT TOLERATING PO INTAKE, INCONTINENT OF STOOL. BENITEZ CATH DRAINING CASANDRA URINE. HYPERTENSIVE, MEDICATED WITH SCHEDULED 0900 MEDS, REMAINS HTN, HYDRALYZINE ADMINSITERED, SBP CURRENTLY 130'S. PT STATING THE NEED/ WANT TO GET BETTER TO GO HOME, PT/OT ORDERED, WILL ATTEMPT TO GET PT UP TO BEDSIDE CHAIR TODAY.
--- NOTE | 2022-09-07 18:06 | NUR ---
SHIFT SUMMARY PT REMAINS ALERT AND ORIENTED, FOLLOWING COMMANDS, PLEASANT WITH CARE. TRANSFERRED TO BEDSIDE CHAIR WITH GAIT BELT AND 2 PERSON SBA. TOLERATED CHAIR FOR A FEW HOURS, ABLE TO TRANSFER TO BEDSIDE COMMODE THEN BACK TO BED. NO CHANGES TO BL WOUNDS, PT C/O MODERATE TO SEVERE PAIN, MORE ON THE R ARM THAN LEFT. STRONG PULSE AND SENSATION BL. MEDICATED WITH PRN PO OXYCODONE, TOLERATED WELL. BENITEZ CATH DRAINING CASANDRA URINE. MULTIPLE LOOSE BM'S. TOLERATING PO INTAKE. NO OTHER ACUTE CHANGES NOTED.
[2022-09-08 04:41] LABS: Albumin, Blood 2.2 g/dL (3.4-5.0); Anion Gap 5 mmol/L (6-16); Blood Urea Nitrogen 6 mg/dL (8-24); Bun/Creatinine Ratio 6.6 (12.0-20.0); CO2, Blood 28 mmol/L (21-32); Chloride, Blood 106 mmol/L (98-108); Creatinine, Blood 0.92 mg/dL (0.60-1.20); Glomerular Filtration Rate 98 (60-); Glucose, Blood 201 mg/dL (70-99); Phosphorus, Blood 4.2 mg/dL (2.5-4.9); Potassium, Blood 3.8 mmol/L (3.5-5.5); Sodium, Blood 139 mmol/L (136-145)
--- NOTE | 2022-09-08 06:13 | NUR ---
SHIFT SUMMARY: NO ACUTE CHANGES THIS SHIFT. PT SLEPT THROUHGOUT THE NIGHT. PT USING CALL LIGHT APPROPRIATELY. VSS THROUGHOUT THE SHIFT. NEW DRAINAGE CANNISTER PLACED ON WOUND VAC THIS SHIFT.
[2022-09-08 06:14] LABS: BASOPHILS ABSOLUTE AUTO 0.03 K/mm3 (0.00-0.23); BASOPHILS PERCENT AUTO 1 % (0-2); EOSINOPHILS ABSOLUTE AUTO 0.29 K/mm3 (0.00-0.68); EOSINOPHILS PERCENT AUTO 5 % (0-6); Hemoglobin 10.6 g/dL (13.5-17.5); IMMATURE GRAN ABSOLUTE AUTO 0.03 K/mm3 (0.00-0.10); IMMATURE GRAN PERCENT AUTO 1 % (0-1); LYMPHOCYTES ABSOLUTE AUTO 1.22 K/mm3 (0.84-5.20); LYMPHOCYTES PERCENT AUTO 22 % (21-46); MONOCYTES ABSOLUTE AUTO 0.56 K/mm3 (0.16-1.47); MONOCYTES PERCENT AUTO 10 % (4-13); Mean Corpuscular HGB 25.1 pg (26.0-34.0); Mean Corpuscular HGB Conc 30.3 g/dL (31.5-36.5); Mean Corpuscular Volume 83 fL (80-100); NEUTROPHILS ABSOLUTE AUTO 3.47 K/mm3 (1.96-9.15); NEUTROPHILS PERCENT AUTO 62 % (41-73); Platelet Count 284 K/mm3 (150-400); RDW Coefficient Variation 16.7 % (11.7-14.2); RDW Standard Deviation 50.5 fL (35.1-46.3); Red Blood Cell Count 4.22 M/mm3 (4.30-5.90)
--- NOTE | 2022-09-08 09:33 | NUR ---
SHIFT ASSESSMENT PT MUCH MORE ALERT TODAY, SPEAKING CLEARER WITH STAFF, REGRETFUL OF HIS DECISIONS THAT LED UP TO THIS HOSPITALIZATION. MOVEMENT IN BOTH ARMS IMPROVING EVEN THOUGH PT STILL C/O 8/10 PAIN, MEDICATED WITH PO PAIN MEDS. WOUND VAC'S BL c DIMINISHING OUTPUT. VSS. BENITEZ DRAINING YELLOW URINE. TOLERATING PO INTAKE, NO BM THIS AM. WILL ASSIST PT TO BEDSIDE CHAIR TODAY.
--- NOTE | 2022-09-08 14:22 | NUR ---
UPDATE PT AMBULATED TO BEDSIDE CHAIR WITH SBA AND GAIT BELT. PHYSICAL THERAPY WORKED WITH PT, HE DID WELL STANDING AND WORKING WITH PT. CURRENTLY IN BEDSIDE CHAIR, DOING WELL, CALL LIGHT IN REACH.
--- NOTE | 2022-09-08 15:04 | NUR ---
REPORT GIVEN TO SHIRLEY.
--- NOTE | 2022-09-08 17:10 | NUR ---
SHIFT SUMMARY: I assumed care of this patient at 1530. He was up in chair for much of day. Pt transferred back to bed with moderate assistance. He is intermittantly confused when just waking up, but easily reoriented. 2L O2 via NC for desaturations while sleeping. NSR on accounting/finance tutor. [place] draining clear, yellow urine. Wound vacs in place bilaterally.
--- NOTE | 2022-09-09 00:44 | NUR ---
PT HYPERTENSIVE DESPITE PRN HYDRALIZINE BEING GIVEN. DR PARDO NOTIFIED. ORDERS GIVEN. SEE EMAR
[2022-09-09 04:08] LABS: BASOPHILS ABSOLUTE AUTO 0.03 K/mm3 (0.00-0.23); BASOPHILS PERCENT AUTO 1 % (0-2); EOSINOPHILS ABSOLUTE AUTO 0.27 K/mm3 (0.00-0.68); EOSINOPHILS PERCENT AUTO 5 % (0-6); Hematocrit 31.9 % (37.0-53.0); Hemoglobin 9.9 g/dL (13.5-17.5); IMMATURE GRAN ABSOLUTE AUTO 0.04 K/mm3 (0.00-0.10); IMMATURE GRAN PERCENT AUTO 1 % (0-1); LYMPHOCYTES ABSOLUTE AUTO 1.52 K/mm3 (0.84-5.20); LYMPHOCYTES PERCENT AUTO 28 % (21-46); MONOCYTES ABSOLUTE AUTO 0.69 K/mm3 (0.16-1.47); MONOCYTES PERCENT AUTO 13 % (4-13); Mean Corpuscular HGB 25.4 pg (26.0-34.0); Mean Corpuscular Volume 82 fL (80-100); Mean Platelet Volume 10.6 fL (9.1-12.4); NEUTROPHILS ABSOLUTE AUTO 2.97 K/mm3 (1.96-9.15); NEUTROPHILS PERCENT AUTO 54 % (41-73); Platelet Count 272 K/mm3 (150-400); RDW Coefficient Variation 16.3 % (11.7-14.2); RDW Standard Deviation 49.1 fL (35.1-46.3); Red Blood Cell Count 3.89 M/mm3 (4.30-5.90); White Blood Cell Count 5.52 K/mm3 (4.00-11.30)
[2022-09-09 04:23] LABS: Albumin, Blood 2.2 g/dL (3.4-5.0); Anion Gap 4 mmol/L (6-16); Blood Urea Nitrogen 8 mg/dL (8-24); Bun/Creatinine Ratio 9.5 (12.0-20.0); CO2, Blood 30 mmol/L (21-32); Chloride, Blood 105 mmol/L (98-108); Creatinine, Blood 0.84 mg/dL (0.60-1.20); Glomerular Filtration Rate 102 (60-); Glucose, Blood 148 mg/dL (70-99); Phosphorus, Blood 3.4 mg/dL (2.5-4.9); Potassium, Blood 3.7 mmol/L (3.5-5.5); Sodium, Blood 139 mmol/L (136-145)
--- NOTE | 2022-09-09 09:41 | NUR ---
PT PRE MEDICATED FOR WOUND VAC DRSG CHANGE
--- NOTE | 2022-09-09 09:59 | NUR ---
CARE OF PT ASSUMED AT 0700. PT SLEEPING W CPAP ON, AWAKENS TO VOICE. C/O PAIN TO BILAT AC WOUNDS 03/27; RIGHT WORSE THAN LEFT. OXY 10MG GIVEN Q 4HRS W FENTANYL AVAILABLE FOE BREAK THROUGH PAIN. WOUND VAC TO BILAT AC WOUNDS; DRSG C/D/I. PT STAND BY ASSIST TO CHAIR THIS AM. WOUND RN AT BEDSIDE NOW TO CHANGE DRSG'S.
--- NOTE | 2022-09-09 10:30 | NUR ---
PT HAVING 10/10 PAIN W WOUND DRSG CHANGE. DR FONSECA NOTIFIED, ADDITIONAL FENTANYL ORDERED.
--- NOTE | 2022-09-09 13:03 | NUR ---
Echocardiogram completed.
--- NOTE | 2022-09-09 15:19 | NUR ---
WOUND CARE BLUE WOUND VAC DRESSING CHANGED. ONE PIECE OF BLACK FOAM REMOVED FROM LEFT AND RIGHT FOREARMS. WOUNDS CLEANSED NS. BL PERIWOUNDS WINDOWPANED WITH TRANSPARENT FILM, TWO PIECES OF BLACK FOAM PLACED IN EACH WOUND. VAC SET TO CONTINUOUS 120MMHG. PT TOLERATED WELL
--- NOTE | 2022-09-09 16:47 | NUR ---
PT HAS BEEN IN AND OUT OF CHAIR W SBA T/O SHIFT AND HAS TOLERATED SITTING UP IN CHAIR. PT AMBULATED T/O ICU AROUND 1600 AND TOLERATED THAT WELL. PT MEDICATED W OXY 10MG PRIOR TO AMBULATION FOR 8/10 PAIN TO BILAT AC WOUNDS. NEW PICTURES TAKEN THIS AM W WOUND DRSG CHANGE. DR RENDON WAS IN THIS AM TO SEE PT. ONE TIME DOSE OF LASIX GIVEN
[2022-09-10 05:03] LABS: BASOPHILS ABSOLUTE AUTO 0.04 K/mm3 (0.00-0.23); BASOPHILS PERCENT AUTO 1 % (0-2); EOSINOPHILS ABSOLUTE AUTO 0.32 K/mm3 (0.00-0.68); EOSINOPHILS PERCENT AUTO 6 % (0-6); Hematocrit 33.7 % (37.0-53.0); Hemoglobin 10.6 g/dL (13.5-17.5); IMMATURE GRAN ABSOLUTE AUTO 0.06 K/mm3 (0.00-0.10); IMMATURE GRAN PERCENT AUTO 1 % (0-1); LYMPHOCYTES ABSOLUTE AUTO 1.63 K/mm3 (0.84-5.20); LYMPHOCYTES PERCENT AUTO 29 % (21-46); MONOCYTES ABSOLUTE AUTO 0.75 K/mm3 (0.16-1.47); MONOCYTES PERCENT AUTO 13 % (4-13); Mean Corpuscular HGB 25.2 pg (26.0-34.0); Mean Corpuscular HGB Conc 31.5 g/dL (31.5-36.5); Mean Corpuscular Volume 80 fL (80-100); Mean Platelet Volume 10.4 fL (9.1-12.4); NEUTROPHILS PERCENT AUTO 50 % (41-73); Platelet Count 334 K/mm3 (150-400); RDW Coefficient Variation 16.2 % (11.7-14.2)
[2022-09-10 05:38] LABS: Albumin, Blood 2.3 g/dL (3.4-5.0); Anion Gap 5 mmol/L (6-16); Blood Urea Nitrogen 13 mg/dL (8-24); Bun/Creatinine Ratio 14.7 (12.0-20.0); CO2, Blood 30 mmol/L (21-32); Calcium, Blood 9.2 mg/dL (8.5-10.1); Chloride, Blood 103 mmol/L (98-108); Creatinine, Blood 0.89 mg/dL (0.60-1.20); Glomerular Filtration Rate 101 (60-); Glucose, Blood 111 mg/dL (70-99); Phosphorus, Blood 3.7 mg/dL (2.5-4.9); Potassium, Blood 3.7 mmol/L (3.5-5.5); Sodium, Blood 138 mmol/L (136-145)
--- NOTE | 2022-09-10 06:02 | NUR ---
SHIFT SUMMERY PT HAS BEEN RESTLESS OVERNIGHT, REQUESTING PAIN MEDICATION FREQUENTLY. HE SAT IN THE CHAIR FOR A FEW HOURS. VSS, AFEBRILE. HE IS ALERT AND ORIENTED X4. NO ACUTE CHANGES OVERNIGHT.
--- NOTE | 2022-09-10 07:21 | NUR ---
Received report from Ravi NAVA. Patient awakens easily to verbal stimuli. He is oriented and is able to communicate his needs. Reveiwed times for pain meds. He is on RA and just remomed CPAP while awake and then reapplys, sats >90%. He has RIJ dressing intact and site WNL and is infusing NS TKO. He has bilateral wound vacs to AC's, both have been re-inforced. He has 16Fr Mad[place] draining to [facility] and goal to remove today. MAEW, but painful. CBG 98, no coverage needed.
--- NOTE | 2022-09-10 10:03 | NUR ---
Patient up to chair with minimal assist and ate 100% breakfast. Dr Moody by and will change patient tpo medical. He remains on RA and sats >90%. He tolerated am meds without diffiiculty. medicated for pain per MAR. No other significant changes with patient from am note.
--- NOTE | 2022-09-10 10:13 | NUR ---
Spiritual Care Attempted Pt. is awake in bed and initially welcomes my visit. Pt. is pleasant but declines any spiritual care at this time. Brief rapport established. Will continue to monitor as Pt. is moved from ICU.
--- NOTE | 2022-09-10 11:55 | NUR ---
Patient has been resting and got up in chair for lunch. CBG 192 and 3 units coverage. He remains on RA and sats >90%. Wound vacs bilaterally remains in tact and on suction. [place] output and drained was 1900 ml's of clear yellow urine. he is surgical no tele. Up with SBA in room .
--- NOTE | 2022-09-10 14:08 | NUR ---
patient resting in bed watching TV awaiting surgical bed. Patient wallked around the ICU unit for 10 minutes and did well holding on to pole and went back to chair then bed after being on cammode. He has medium size sofe stool/
--- NOTE | 2022-09-10 15:28 | NUR ---
Patient back up to chair for comfort. He remains on RA and sats >90%. Wound vac remains intact, both to suction. RIJ dressing intact and WNL. PT in room taking patient for another walk NS TKO. Awaiting med/surg bed.
--- NOTE | 2022-09-10 17:57 | NUR ---
Report called to Med RN. Patient was taken to [place] [id number] by wheelchair and ambulated to his bed and is sitting at bedside eating dinner. All his belonging were taken with him (watch and sandals in bag). He remains on RA and NS TKO.
--- NOTE | 2022-09-10 19:14 | NUR ---
PATIENT TRANSFERRED FROM ICU RM 15 TO MEDICAL UNIT c NO TELE. PATIENT ARRIVED TO ROOM AT AROUND 1745 VIA WHEELCHAIR. PATIENT TRANSFERRED TO BED c SBA. PATIENT NOTED TO HAVE ISAURA WOUND VAC c MINIMAL SEROSENGUINOUS DRAINAGE TO CANISTER. BENITEZ, PATENT DRAINING LIGHT YELLOW URINE TO GRAVITY. EMPTIED ABOUT 750 MLS. IV TO IJ INFUSING NS KVO AT 10 MLS/HR. PATIENT REPORTS PAIN TO ISAURA /. MEDICATED X1 c FENTANYL. "PER PATIENT HELPS A LITTLE BIT". CALL LIGHT IN REACH
[2022-09-10] MEDS ORDERED: MIRT30 PO (22:56)
[2022-09-10] MEDS ORDERED: HUMULIN R100 UNIT/2 SC (22:57)
[2022-09-10] MEDS ORDERED: KLOR-CON 1010 ME1 PO (22:58)
[2022-09-10] MEDS ORDERED: TAMSULOSIN HCL0.4 M1 PO (22:59)
--- NOTE | 2022-09-11 04:11 | NUR ---
SUMMARY: PT A/OX3 BUT IS IMPULSIVE AND FORGETFULL AT TIMES W/BED ALARM FOR HIGH FALL RISK. GAIT IS SLIGHTLY UNSTEADY, HE'S UNAWARE OF LIMITATIONS AND HAS MANY LINES/TUBES. PT ALSO CAN QUICKLY BECOME AGGITATED, IMPATIENT, MANIPULATIVE AND VERBALLY COMBATIVE WHEN REQ'S/ NONACUTE NEEDS ARE NOT MET IMMEDIATELY. HE'S BEEN OBSERVED CURSING AT STAFF, PULLING ON CORDS/LINES AND CAN BE UNRESPONSIVE TO REDIRECTION/ORIENTATION. STAFF ARE ABLE TO DIFFUSE THESE SITUATIONS W/THERAPEUTIC COMMUNICATION, ATTEMPTS AT EDUCATION AND PROVIDING TIME FOR HIM TO SETTLE/CALM. HE THEN IS PLEASENT, RECEPTIVE AND COOPERATIVE W/CARE AGAIN. HE HAS WOUND VACCS TO BILAT AC'S W/125 MMHG AND SCANT NEW DRAINAGE NOTED. CONT BIOX IS INTACT BUT HE DESATS TO 80'S% W/O CPAP WHEN SLEEPING. BENITEZ IS PATENT/DRAINING TO GRAVITY AND R.IJ CENTRAL LINE IS RUNNING TKVO W/IV ABX RECIEVED T/O NOCTE. HE GOT OOB BY SELF X1 AND WAS FOUND W/ALL LINES STRETCHED TO THEIR MAX WHILE ATTEMPTING GET TO THE BATHROOM. HE WAS ARGUMENTATIVE W/FALL RISK REITERATION BUT HAD X1 FORMED BM AND WAS ASSISTED SAFELY TO BED. PT REFUSED PO PAIN MEDS AND CALLS FOR IV FENT 100MCG PRN Q3H, BECOMING IRRITABLE IF IT'S LATE. HE USUALLY REPORTS 7-8/10 PAIN THAT NEVER IMPROVES BETTER THAN 4-5/10. VSS/AFEBRILE, NO ACUTE CHANGES. WCTM AND REPORT TO DAY RN.
[2022-09-11 07:56] LABS: BASOPHILS ABSOLUTE AUTO 0.06 K/mm3 (0.00-0.23); BASOPHILS PERCENT AUTO 1 % (0-2); EOSINOPHILS ABSOLUTE AUTO 0.27 K/mm3 (0.00-0.68); EOSINOPHILS PERCENT AUTO 5 % (0-6); Hematocrit 34.1 % (37.0-53.0); Hemoglobin 10.6 g/dL (13.5-17.5); IMMATURE GRAN ABSOLUTE AUTO 0.05 K/mm3 (0.00-0.10); IMMATURE GRAN PERCENT AUTO 1 % (0-1); LYMPHOCYTES PERCENT AUTO 35 % (21-46); MONOCYTES ABSOLUTE AUTO 0.72 K/mm3 (0.16-1.47); MONOCYTES PERCENT AUTO 13 % (4-13); Mean Corpuscular HGB 25.2 pg (26.0-34.0); Mean Corpuscular HGB Conc 31.1 g/dL (31.5-36.5); Mean Corpuscular Volume 81 fL (80-100); Mean Platelet Volume 11.4 fL (9.1-12.4); NEUTROPHILS ABSOLUTE AUTO 2.36 K/mm3 (1.96-9.15); NEUTROPHILS PERCENT AUTO 44 % (41-73); Platelet Count 356 K/mm3 (150-400); RDW Coefficient Variation 16.1 % (11.7-14.2); RDW Standard Deviation 47.5 fL (35.1-46.3); White Blood Cell Count 5.36 K/mm3 (4.00-11.30)
[2022-09-11 08:06] LABS: Albumin, Blood 2.4 g/dL (3.4-5.0); Anion Gap 4 mmol/L (6-16); Blood Urea Nitrogen 18 mg/dL (8-24); Bun/Creatinine Ratio 18.8 (12.0-20.0); CO2, Blood 33 mmol/L (21-32); Calcium, Blood 9.3 mg/dL (8.5-10.1); Chloride, Blood 102 mmol/L (98-108); Creatinine, Blood 0.96 mg/dL (0.60-1.20); Glomerular Filtration Rate 93 (60-); Glucose, Blood 96 mg/dL (70-99); Phosphorus, Blood 3.7 mg/dL (2.5-4.9); Potassium, Blood 3.5 mmol/L (3.5-5.5); Sodium, Blood 139 mmol/L (136-145)
--- NOTE | 2022-09-11 12:54 | NUR ---
WOUND CARE BL FOREARM VAC DRESSINGS CHANGED. RUE- TWO PIECS BLACK FOAM REMOVED, WOUND CLEANSED NS, DRAPED WITH TRANSPARENT FILM, TWO PIECES BLACK FOAM REAPPLIED. LUE- TWO PIECES BLACK FOAM REMOVED, CLEANSED NS, ONE PIECE BLACK FOAM REAPPLIED. Y-CONNECTOR USED, VAC SET TO CONTINUOUS 120MMHG. PT TOLERATED WELL.
--- NOTE | 2022-09-11 17:45 | NUR ---
SHIFT SUMMARY- PT IS A/O, PLESANT AND COOPERATIVE. HE IS EATING AND DRINKING WELL. HE WORKED WITH PT THIS SHIFT AND TOLERATED WELL. PAIN MEDICATIONS WERE ADJUSTED THIS SHIFT. WOUND VAC CHANGED THIS SHIFT. ORTHO ROUNDED ON PT THIS SHIFT. HE HAS BEEN UP TO THE CHAIR MULTIPLE TIMES THIS SHIFT. HIS BED IS IN THE LOW POSTION AND CALL LIGHT IS WITHIN REACH.
[2022-09-12 05:25] LABS: BASOPHILS ABSOLUTE AUTO 0.06 K/mm3 (0.00-0.23); BASOPHILS PERCENT AUTO 1 % (0-2); EOSINOPHILS ABSOLUTE AUTO 0.25 K/mm3 (0.00-0.68); EOSINOPHILS PERCENT AUTO 5 % (0-6); Hematocrit 33.5 % (37.0-53.0); Hemoglobin 10.5 g/dL (13.5-17.5); IMMATURE GRAN ABSOLUTE AUTO 0.04 K/mm3 (0.00-0.10); IMMATURE GRAN PERCENT AUTO 1 % (0-1); LYMPHOCYTES PERCENT AUTO 38 % (21-46); MONOCYTES PERCENT AUTO 15 % (4-13); Mean Corpuscular HGB 25.3 pg (26.0-34.0); Mean Corpuscular HGB Conc 31.3 g/dL (31.5-36.5); Mean Corpuscular Volume 81 fL (80-100); Mean Platelet Volume 11.7 fL (9.1-12.4); NEUTROPHILS ABSOLUTE AUTO 1.95 K/mm3 (1.96-9.15); NEUTROPHILS PERCENT AUTO 41 % (41-73); Platelet Count 337 K/mm3 (150-400); RDW Coefficient Variation 15.8 % (11.7-14.2); RDW Standard Deviation 46.5 fL (35.1-46.3); Red Blood Cell Count 4.15 M/mm3 (4.30-5.90)
[2022-09-12 06:36] LABS: Albumin, Blood 2.6 g/dL (3.4-5.0); Anion Gap 4 mmol/L (6-16); Blood Urea Nitrogen 22 mg/dL (8-24); CO2, Blood 31 mmol/L (21-32); Calcium, Blood 9.6 mg/dL (8.5-10.1); Chloride, Blood 101 mmol/L (98-108); Creatinine, Blood 1.05 mg/dL (0.60-1.20); Glomerular Filtration Rate 83 (60-); Glucose, Blood 220 mg/dL (70-99); Phosphorus, Blood 3.6 mg/dL (2.5-4.9); Sodium, Blood 136 mmol/L (136-145)
[2022-09-12 07:11] LABS: HIV AB/P24 AG SCREEN Non Reactive (Non Reactive)
--- NOTE | 2022-09-12 07:46 | NUR ---
PATIENT TOLERATING BILATERAL WOUND TREATMENT WELL. OOB ONCE IN MIDDLE OF THE NIGHT TO SIT UP IN THE RECLINER AND WATCH TV. TORADOL GIVEN ONCE AT START OF SHIFT FOR WOUND PAIN, AND ONCE IN THE AM. DRINKING PLENTY OF WATER, EATING WELL. BILATERAL AC WOUNDS LOOK CLEAN DRY AND INTACT WITH MINIMAL DRAINAGE TO PUMP WHICH IS RUNNING AT 120 PER ORDER. PATIENT WAS PLEASANT AND COOPERATIVE WITH CARE ALL NIGHT.
--- NOTE | 2022-09-12 17:43 | NUR ---
SHIFT SUMMARY PT AOX4, SBA TO THE BATHROOM FOR BM. PICC LINE REMOVED THIS SHIFT BY CHARGE NURSE. PT STARTED ON SUBOXONE PER DR. RENDON FOR PAIN. PER DR. RENDON, PT IS ONLY TO RECEIVE SUBOXONE AND IBU FOR PAIN. SHE IS THE DR. THAT MUST BE CONTACTED FOR HIS CARE, REGARDLESS OF WHO IS ON. PT WENT FOR A WALK AROUND THE FLOOR THIS SHIFT, TOLERATING WELL. PT'S BENITEZ CATHETER WAS ALSO REMOVED THIS SHIFT. WILL REPORT TO ONCOMING NURSE.
[2022-09-13 05:43] LABS: BASOPHILS ABSOLUTE AUTO 0.07 K/mm3 (0.00-0.23); BASOPHILS PERCENT AUTO 2 % (0-2); EOSINOPHILS ABSOLUTE AUTO 0.27 K/mm3 (0.00-0.68); EOSINOPHILS PERCENT AUTO 6 % (0-6); Hemoglobin 10.6 g/dL (13.5-17.5); IMMATURE GRAN ABSOLUTE AUTO 0.04 K/mm3 (0.00-0.10); IMMATURE GRAN PERCENT AUTO 1 % (0-1); LYMPHOCYTES PERCENT AUTO 48 % (21-46); MONOCYTES ABSOLUTE AUTO 0.58 K/mm3 (0.16-1.47); MONOCYTES PERCENT AUTO 13 % (4-13); Mean Corpuscular HGB 24.9 pg (26.0-34.0); Mean Corpuscular HGB Conc 30.3 g/dL (31.5-36.5); Mean Corpuscular Volume 82 fL (80-100); Mean Platelet Volume 11.9 fL (9.1-12.4); NEUTROPHILS ABSOLUTE AUTO 1.44 K/mm3 (1.96-9.15); NEUTROPHILS PERCENT AUTO 31 % (41-73); Platelet Count 350 K/mm3 (150-400); RDW Coefficient Variation 15.6 % (11.7-14.2); RDW Standard Deviation 46.7 fL (35.1-46.3); Red Blood Cell Count 4.26 M/mm3 (4.30-5.90)
[2022-09-13 06:24] LABS: Albumin, Blood 2.7 g/dL (3.4-5.0); Anion Gap 8 mmol/L (6-16); Blood Urea Nitrogen 30 mg/dL (8-24); Bun/Creatinine Ratio 22.2 (12.0-20.0); CO2, Blood 29 mmol/L (21-32); Calcium, Blood 9.8 mg/dL (8.5-10.1); Chloride, Blood 96 mmol/L (98-108); Creatinine, Blood 1.35 mg/dL (0.60-1.20); Glomerular Filtration Rate 62 (60-); Glucose, Blood 313 mg/dL (70-99); Phosphorus, Blood 5.3 mg/dL (2.5-4.9); Potassium, Blood 4.3 mmol/L (3.5-5.5); Sodium, Blood 133 mmol/L (136-145)
--- NOTE | 2022-09-13 08:03 | NUR ---
GETACHEW DID WELL FOR HIS FIRST SUBOXONE NIGHT. THIS RN GAVE IT ONLY ONCE AND ALTERNATED WITIH 800 IBUPROFEN. HE DISCUSSED HIS CONVERSATION WITH HIS SON WHO TOLD HIM HE COULD COME STAY WITH HIM WHILE HE IS RECOVERING LONG HE STICKS "WITH THE PROGRAM" HE DID NOT WEAR HIS CPAP OVERNIGHT OR ALLOW ME TO TALK HIM INTO THE CONTINUOUS 02 MONITORING. SPOT CHECKS APPEARED TO BE DOING FINE
--- NOTE | 2022-09-13 09:00 | NUR ---
PT PLEASANT COOP SOME IRRITABLE. STATES PAIN OVREALL. CLARIFFYING TO KNOW WHEN PAIN MEDS TO BE AVAIL. EXPLAINED 8 MG Q 24 HRS. BY 3 HRS EACH DOSE. HR REG, NO MURMUR NOTED. NO TELE. LUNGS CLEAR, RESP EASY, UNLABORED. ON RA. BT X4 LAST BM YEST PER PT. REFUSED COLACE. VIODS URINAL. SBA TO BATHROOM. BILAT A/C DRAINS HOOKED TO WOUND VAC. RT ARM LEAKING SUCTION. REPAIRED. THIERRY IN WOUND CLINIC TO SEE PT SHORTLY TO REDRESS. BED IN LOW POSITION, CALL LITE IN REACH, CALLS APPROP
--- NOTE | 2022-09-13 09:53 | NUR ---
PER ZAMZAM AVILA D/C IVF. ENCOURAGE PT TO DRINK AT LEAST 1 LITER H2O PER KDAY
--- NOTE | 2022-09-13 15:20 | NUR ---
WOUND CARE BL FOREARM WOUND VAC DRESSINGS CHANGED. RUE- TWO PIECES OF BLACK FOAM REMOVED, TWO PIECES BLACK FOAM REAPPLIED. LUE ONE PIECE BLACK FOAM REMOVED, ONE PIECE BLACK FOAM REAPPLIED. WOUNDS CLEANSED WITH NS, VAC SET TO CONTINUOUS 120 MMHG. PT TOLERATED WELL
--- NOTE | 2022-09-13 18:33 | NUR ---
PT MOSTLY PLEASANT TODAY. DID COMPLAIN ABOUT PAIN MEDS NOT BEING ENOUGH. FEELS SHOULD BE MORE. HE ALSO WANTED TO WALK SOME IN HALLS THIS AFT. HOWEVER, WE WERE TOO BUSY AT THE TIME TO ASSIST HIM. SHORT TIME LATER, AIDE WAS ABLE TO ASSIST. BUT HE WAS IRRITATED AND REFUSED TO WALK. WOUND CHANGED TODAY BY WOUND CENTER. NO OTHER CONCERNS NOTED. BED IN LOW POSITION, JUDY LLITE IN REACH, CALLS APPROP
[2022-09-14 05:47] LABS: BASOPHILS ABSOLUTE AUTO 0.03 K/mm3 (0.00-0.23); BASOPHILS PERCENT AUTO 1 % (0-2); EOSINOPHILS PERCENT AUTO 5 % (0-6); Hematocrit 33.8 % (37.0-53.0); Hemoglobin 10.5 g/dL (13.5-17.5); IMMATURE GRAN ABSOLUTE AUTO 0.03 K/mm3 (0.00-0.10); IMMATURE GRAN PERCENT AUTO 1 % (0-1); LYMPHOCYTES ABSOLUTE AUTO 1.76 K/mm3 (0.84-5.20); LYMPHOCYTES PERCENT AUTO 28 % (21-46); MONOCYTES ABSOLUTE AUTO 0.68 K/mm3 (0.16-1.47); MONOCYTES PERCENT AUTO 11 % (4-13); Mean Corpuscular HGB 25.4 pg (26.0-34.0); Mean Corpuscular HGB Conc 31.1 g/dL (31.5-36.5); Mean Corpuscular Volume 82 fL (80-100); NEUTROPHILS PERCENT AUTO 56 % (41-73); Platelet Count 344 K/mm3 (150-400); RDW Coefficient Variation 15.5 % (11.7-14.2); RDW Standard Deviation 46.2 fL (35.1-46.3); Red Blood Cell Count 4.14 M/mm3 (4.30-5.90)
--- NOTE | 2022-09-14 06:10 | NUR ---
MUSIC COMPOSER SUMMARY PT A/OX3; NO ACUTE EVENTS. PT WANTED EXPLANATION OF DOSING OF SUBOXONE; PT EDUCATION. MED W/SUBOXONE 2X T/O SHIFT. PT ANXIOUS AT TIMES. MANY PERIODS OF WAKEFULNESS T/O THE NIGHT. PT UP AND DOWN FREQUENTLY TO VOID OR TO SIT AT BEDSIDE CHAIR. ENCOURAGED WATER INTAKE; PT DRANK 1.5 LITERS OF WATER THIS SHIFT. HS BLOOD SUGAR 226; HIGH SLIDING SCALE; COVERAGE NOT INDICATED. WOUND VAC WITH Y SPLIT TO BOTH AC CDI. ABLE TO MAKE NEEDS KNOWN. CALL LIGHT IN REACH.
[2022-09-14 06:21] LABS: C-REACTIVE PROTEIN, EXT RANGE 0.468 mg/dL (0.000-0.300); Magnesium, Blood 1.9 mg/dL (1.6-2.4)
[2022-09-14 06:22] LABS: Albumin, Blood 2.8 g/dL (3.4-5.0); Albumin/Globulin Ratio 0.7 (0.8-1.8); Bilirubin, Total 0.3 mg/dL (0.1-1.0); Bun/Creatinine Ratio 22.3 (12.0-20.0); Calcium, Blood 9.9 mg/dL (8.5-10.1); Creatinine, Blood 2.06 mg/dL (0.60-1.20); Globulin, Blood 3.9 g/dL (2.2-4.0); Phosphorus, Blood 6.6 mg/dL (2.5-4.9); Potassium, Blood 4.5 mmol/L (3.5-5.5); Total Protein, Blood 6.7 g/dL (6.4-8.2)
--- NOTE | 2022-09-14 17:48 | NUR ---
SHIFT SUMMARY PATIENT IS ALERT AND ORIENTED. PATIENT HAS BEEN MOSTLY PLEASENT AND COOPERATIVE WITH CARE THIS SHIFT. PATIENT MEDICATED FOR PAIN TWICE WITH SUBOXONE. PATIENT REFUSED HIS CONTINUOUS FLUIDS BECAUSE OF NOT WANTING AN IV. PATIENT HAS NOT COMPLAINED OF SOB, NAUSEA, OR VOMITTING THIS SHIFT. VITAL SIGNS REVIEWED. WILL MONITOR UNTIL SHIFT CHANGE.
[2022-09-15 05:36] LABS: Source, Urine Clean Catch
[2022-09-15 05:38] LABS: Bilirubin, Urine Neg (Neg); Blood, Urine 1+ (Neg); Glucose Qualitative, Urine Neg (Neg); Ketones, Urine Neg (Neg); Leukocyte Esterase, Urine Neg (Neg); Nitrite, Urine Neg (Neg); Protein, Urine Neg (Neg); Specific Gravity, Urine 1.015 (1.003-1.022); Urobilinogen, Urine NORM (Normal)
[2022-09-15 05:40] LABS: Appearance, Urine Clear (Clear); Color, Urine Yellow (P-Yellow)
[2022-09-15 05:52] LABS: Bacteria Not Seen /hpf; Red Blood Cells, Urine 0-2 /hpf (0-2); Squamous Epithelial Cells Rare /hpf (Few); White Blood Cells, Urine 0-2 /hpf (0-5)
[2022-09-15 05:53] LABS: BASOPHILS ABSOLUTE AUTO 0.04 K/mm3 (0.00-0.23); BASOPHILS PERCENT AUTO 1 % (0-2); EOSINOPHILS ABSOLUTE AUTO 0.29 K/mm3 (0.00-0.68); EOSINOPHILS PERCENT AUTO 7 % (0-6); Hematocrit 31.5 % (37.0-53.0); Hemoglobin 9.8 g/dL (13.5-17.5); IMMATURE GRAN ABSOLUTE AUTO 0.02 K/mm3 (0.00-0.10); IMMATURE GRAN PERCENT AUTO 1 % (0-1); LYMPHOCYTES ABSOLUTE AUTO 1.55 K/mm3 (0.84-5.20); LYMPHOCYTES PERCENT AUTO 36 % (21-46); MONOCYTES ABSOLUTE AUTO 0.57 K/mm3 (0.16-1.47); MONOCYTES PERCENT AUTO 13 % (4-13); Mean Corpuscular HGB 25.1 pg (26.0-34.0); Mean Corpuscular HGB Conc 31.1 g/dL (31.5-36.5); Mean Corpuscular Volume 81 fL (80-100); Mean Platelet Volume 12.4 fL (9.1-12.4); NEUTROPHILS ABSOLUTE AUTO 1.88 K/mm3 (1.96-9.15); NEUTROPHILS PERCENT AUTO 43 % (41-73); Platelet Count 299 K/mm3 (150-400); RDW Coefficient Variation 15.2 % (11.7-14.2); RDW Standard Deviation 44.9 fL (35.1-46.3); White Blood Cell Count 4.35 K/mm3 (4.00-11.30)
[2022-09-15 06:02] LABS: Sodium, Urine, Random 13 mmol/L (20-110)
[2022-09-15 06:06] LABS: Chloride, Urine, Random <10 mmol/L (55-125)
[2022-09-15 06:13] LABS: Albumin, Blood 2.7 g/dL (3.4-5.0); Albumin/Globulin Ratio 0.7 (0.8-1.8); Bilirubin, Total 0.3 mg/dL (0.1-1.0); Bun/Creatinine Ratio 38.1 (12.0-20.0); Calcium, Blood 9.9 mg/dL (8.5-10.1); Creatinine, Blood 1.6 mg/dL (0.60-1.20); Globulin, Blood 3.8 g/dL (2.2-4.0); Phosphorus, Blood 5.2 mg/dL (2.5-4.9); Potassium, Blood 4.5 mmol/L (3.5-5.5); Total Protein, Blood 6.5 g/dL (6.4-8.2)
[2022-09-15 06:14] LABS: Eosinophils-Raw #,Urine 1; White Blood Cells Urine 0-2 /hpf (0-5)
--- NOTE | 2022-09-15 06:28 | NUR ---
Shift Summary Pt c/o severe pain in R arm, rcving Q3 PRN suboxone and Q6 PRN Tylenol, pt states pain is acceptable with this regiment. Pt was easily agitated and angered, but he expressed himself and issues were resolved peacefully. Pt restless and up t/o the night, did get some sleep off and on. VSS.
[2022-09-15 11:11] LABS: HBSAG SCREEN Negative (Negative); HCV AB >11.0 (0.0-0.9); HEP A AB, IGM Negative (Negative); HEP B CORE AB, TOT Negative (Negative); HEPATITIS C QUANTITATION HCV Not Detected IU/mL (.)
--- NOTE | 2022-09-15 18:40 | NUR ---
SHIFT SUMMARY: POWERGLIDE IV PLACED IN JACKY ABOVE WOUND VAC DRESSING, IVF INFUSING. MEDICATED FOR PAIN PER EMAR. INDEPENDENT IN ROOM. USING URINAL, VOIDS SMALL AMOUNTS OFTEN. WOUND VAC DRESSINGS REINFORCED PUMP DETECTED LEAK, CANISTER CHANGED. GOOD PO INTAKE.
[2022-09-16 04:55] LABS: BASOPHILS ABSOLUTE AUTO 0.06 K/mm3 (0.00-0.23); BASOPHILS PERCENT AUTO 1 % (0-2); EOSINOPHILS PERCENT AUTO 6 % (0-6); Hematocrit 30.9 % (37.0-53.0); Hemoglobin 9.5 g/dL (13.5-17.5); IMMATURE GRAN ABSOLUTE AUTO 0.02 K/mm3 (0.00-0.10); IMMATURE GRAN PERCENT AUTO 0 % (0-1); LYMPHOCYTES ABSOLUTE AUTO 1.57 K/mm3 (0.84-5.20); LYMPHOCYTES PERCENT AUTO 31 % (21-46); MONOCYTES PERCENT AUTO 14 % (4-13); Mean Corpuscular HGB 24.9 pg (26.0-34.0); Mean Corpuscular HGB Conc 30.7 g/dL (31.5-36.5); Mean Corpuscular Volume 81 fL (80-100); Mean Platelet Volume 12.1 fL (9.1-12.4); NEUTROPHILS ABSOLUTE AUTO 2.42 K/mm3 (1.96-9.15); NEUTROPHILS PERCENT AUTO 48 % (41-73); Platelet Count 291 K/mm3 (150-400); RDW Coefficient Variation 15.3 % (11.7-14.2); RDW Standard Deviation 44.9 fL (35.1-46.3); Red Blood Cell Count 3.81 M/mm3 (4.30-5.90); White Blood Cell Count 5.07 K/mm3 (4.00-11.30)
[2022-09-16 05:32] LABS: Albumin, Blood 2.7 g/dL (3.4-5.0); Albumin/Globulin Ratio 0.7 (0.8-1.8); Bilirubin, Total 0.7 mg/dL (0.1-1.0); Bun/Creatinine Ratio 44.2 (12.0-20.0); Calcium, Blood 9.8 mg/dL (8.5-10.1); Creatinine, Blood 1.13 mg/dL (0.60-1.20); Globulin, Blood 3.8 g/dL (2.2-4.0); Phosphorus, Blood 3.7 mg/dL (2.5-4.9); Potassium, Blood 5.1 mmol/L (3.5-5.5); Total Protein, Blood 6.5 g/dL (6.4-8.2)
--- NOTE | 2022-09-16 08:26 | NUR ---
TOBACCO SAMPLER SUMMARY PT WAKEFUL T/O THE NIGHT; LITTLE TO NO SLEEP. PT HAVING URINARY URGENCY WITH LITTLE OUTPUT; PT UP TO USE URINAL EVERY HALF HOUR TO HOUR. PT NOT CURRENTLY ON FLOMAX BUT HAS USED IT PREVIOUSLY. RT AT BEDSIDE TO SET PT UP WITH CPAP/NEW MASK. PT DID NOT TOLERATE AND REMOVED SHORTLY AFTER PLACEMENT. WOUND VAC SET AT [address] WITH ERRORS T/O THE NIGHT; ERRORS OF FULL CARTRIDGE OR LEAK. PT MOVING ABOUT AND THRASHING IN HIS ROOM FREQUENTLY T/O THE NIGHT CAUSING HOSE TO KINK OR DRESSING TO LEAK; AUDIBLE LEAK HEARD ON RT AC--REPLACED DRAPE WITH GOOD EFFECT. SUCTIONING STILL CONT T/BE INTERUPTED WITH PT CONTINOUS/ABRUPT MOVEMENT. PT REQ SUBOXONE Q3 HOURS T/O THE NIGHT. PT ABLE TO MAKE NEEDS KNOWN. CALL LIGHT ACCESSIBLE. BED LOCKED/LOW.
--- NOTE | 2022-09-16 12:47 | NUR ---
WOUND CARE BLUE WOUND VAC DRESSINGS CHANGED. RUE- TWO PIECES BLACK FOAM REMOVED, TWO PIECES BLACK FOAM REAPPLIED. LUE- ONE PIECE BLACK FOAM REMOVED, ONE PIECE BLACK FOAM REAPPLIED. BOTH WOUNDS CLEANSED WITH NS. VAC SET TO CONTINUOUS 120 MMHG. PT TOLERATED WELL
--- NOTE | 2022-09-16 19:43 | NUR ---
SHIFT SUMMARY PT A&O X 4. VSS. WOUND VAC DRSNGS TO BILAT ARM AC 120 MMHG SXN, NO AIR LEAKS. DRSNGS CHANGED BY WOUND RN. PIV INTACT & PATENT. PT USING URINAL & RESTROOM INDEPENDENTLY. MEDICATED FOR PAIN PER EMAR. AMBULATES THE HALLS INDEPENDENTLY, GAIT STEADY & STRONG. BLOOD SUGARS COVERED PER EMAR. IS COOPERATIVE WITH ALL CARE.
--- NOTE | 2022-09-17 04:25 | NUR ---
CAD DESIGNER SUMMARY A&OX4. PATIENT EFFECITVELY COMMUNICATES NEEDS. NO ACUTE EVENTS THROUGHOUT THE NIGHT. VSS. BILATERAL AC WOUND VAC DRESSINGS RETAINED AND MAINTAINING PRESSURE. NS INFUSING @ 50ML/HR. PRN PAIN MEDICATION PROVIDED ADEQUATE COVERAGE. PATIENT OBSERVED SLEEPING COMFORTABLY THROUGHOUT THE NIGHT. BED LOW AND LOCKED. CALL LIGHT WITHIN REACH. THIS RN WILL CONTINUE TO CLOSELY MONITOR.
[2022-09-17 05:19] LABS: BASOPHILS ABSOLUTE AUTO 0.04 K/mm3 (0.00-0.23); BASOPHILS PERCENT AUTO 1 % (0-2); EOSINOPHILS ABSOLUTE AUTO 0.28 K/mm3 (0.00-0.68); EOSINOPHILS PERCENT AUTO 6 % (0-6); Hematocrit 31.4 % (37.0-53.0); Hemoglobin 9.7 g/dL (13.5-17.5); IMMATURE GRAN ABSOLUTE AUTO 0.01 K/mm3 (0.00-0.10); IMMATURE GRAN PERCENT AUTO 0 % (0-1); LYMPHOCYTES ABSOLUTE AUTO 1.25 K/mm3 (0.84-5.20); LYMPHOCYTES PERCENT AUTO 29 % (21-46); MONOCYTES ABSOLUTE AUTO 0.65 K/mm3 (0.16-1.47); MONOCYTES PERCENT AUTO 15 % (4-13); Mean Corpuscular HGB 25.3 pg (26.0-34.0); Mean Corpuscular HGB Conc 30.9 g/dL (31.5-36.5); Mean Corpuscular Volume 82 fL (80-100); Mean Platelet Volume 12.8 fL (9.1-12.4); NEUTROPHILS ABSOLUTE AUTO 2.14 K/mm3 (1.96-9.15); NEUTROPHILS PERCENT AUTO 49 % (41-73); Platelet Count 219 K/mm3 (150-400); RDW Coefficient Variation 15.3 % (11.7-14.2); RDW Standard Deviation 45.4 fL (35.1-46.3); Red Blood Cell Count 3.83 M/mm3 (4.30-5.90); White Blood Cell Count 4.37 K/mm3 (4.00-11.30)
[2022-09-17 05:52] LABS: Albumin, Blood 2.8 g/dL (3.4-5.0); Albumin/Globulin Ratio 0.8 (0.8-1.8); Bilirubin, Total 0.2 mg/dL (0.1-1.0); Bun/Creatinine Ratio 29.5 (12.0-20.0); Calcium, Blood 10.2 mg/dL (8.5-10.1); Creatinine, Blood 1.05 mg/dL (0.60-1.20); Globulin, Blood 3.7 g/dL (2.2-4.0); Potassium, Blood 5.1 mmol/L (3.5-5.5); Total Protein, Blood 6.5 g/dL (6.4-8.2)
--- NOTE | 2022-09-17 16:34 | NUR ---
NO ACUTE CHANGES. PT IS AOX4, BUT GETS ANXIOUS AND USES CALL LIGHT FREQUENTLY. PT IS INDEPENDENT IN ROOM AND IS ABLE TO WALK TAKING HIS IV POOL WITH HIM. PT TREATED FOR PAIN RELATED TO AC WOUNDS PER EMAR. THESE WOUNDS HAVE WOUND VACS ATTATCHED AND HAVE BEEN WORKING WELL NO LEAKS NOTED. PT TAKING WALKS IN THE HALLWAY INDEPENDENTLY. NO DISTRESS NOTED WILL CONTINUE TO MONITOR.
--- NOTE | 2022-09-18 03:22 | NUR ---
LUNCH WAGON OPERATOR SUMMARY NO ACUTE EVENTS THROUGHOUT THE NIGHT. A&OX4. PATIENT EFFECITVELY COMMUNICATES NEEDS WITH INTERMITTENT EPISODES OF AGITATION. VSS. RR EVEN AND UNLABORED ON RA WHILE AWAKE. 2.5L O2 NC APPLIED DURING SLEEP DUE TO PATIENT'S INTOLERANCE TO CPAP. WOUND VACS TO BILATERAL AC REGION. PRESSURE AND SUCTION MAINTAINED, DRESSINGS INTACT. PERSISTENT ERROR CODE OF "FULL CANISTER." BOTH THE WOUND VAC MACHINE AND THE CANISTER HAVE BEEN CHANGED THIS SHIFT. PRESSURE AND SUCTION HAVE CONTINUED DESPITE CANISTER ERROR. WOUND VAC DRESSINGS SCHEDULED TO BE CHANGED TODAY BY TRIAL MGR. PATIENT HAS REQUESTED TO HAVE IV FLUIDS STOPPED SECONDARY TO ANXIETY RELATED TO MULTIPLE TUBES/LINES. THIS RN WILL SPEAK WITH THE HOSPITAL REGARDING THIS CONCERN SINCE PATIENT IS MAINTAINING GOOD PO INTAKE AND URINE OUTPUT, WELL TURNING OFF IV PUMP AND DISCONTINUING THERAPY WITHOUT NOTIFYING CARE STAFF. BED LOW AND LOCKED. CALL LIGHT WITHIN REACH. WILL CONTINUE TO MONITOR.
[2022-09-18 06:07] LABS: BASOPHILS ABSOLUTE AUTO 0.05 K/mm3 (0.00-0.23); BASOPHILS PERCENT AUTO 1 % (0-2); EOSINOPHILS ABSOLUTE AUTO 0.35 K/mm3 (0.00-0.68); EOSINOPHILS PERCENT AUTO 6 % (0-6); Hemoglobin 9.3 g/dL (13.5-17.5); IMMATURE GRAN ABSOLUTE AUTO 0.03 K/mm3 (0.00-0.10); IMMATURE GRAN PERCENT AUTO 1 % (0-1); LYMPHOCYTES ABSOLUTE AUTO 1.62 K/mm3 (0.84-5.20); LYMPHOCYTES PERCENT AUTO 29 % (21-46); MONOCYTES ABSOLUTE AUTO 0.63 K/mm3 (0.16-1.47); MONOCYTES PERCENT AUTO 11 % (4-13); Mean Corpuscular HGB 25.3 pg (26.0-34.0); Mean Corpuscular Volume 82 fL (80-100); Mean Platelet Volume 11.9 fL (9.1-12.4); NEUTROPHILS ABSOLUTE AUTO 3.01 K/mm3 (1.96-9.15); NEUTROPHILS PERCENT AUTO 53 % (41-73); Platelet Count 215 K/mm3 (150-400); RDW Coefficient Variation 15.1 % (11.7-14.2); Red Blood Cell Count 3.68 M/mm3 (4.30-5.90); White Blood Cell Count 5.69 K/mm3 (4.00-11.30)
[2022-09-18 06:32] LABS: Albumin, Blood 2.9 g/dL (3.4-5.0); Albumin/Globulin Ratio 0.9 (0.8-1.8); Bilirubin, Total 0.2 mg/dL (0.1-1.0); Bun/Creatinine Ratio 25.4 (12.0-20.0); Calcium, Blood 9.9 mg/dL (8.5-10.1); Creatinine, Blood 0.9 mg/dL (0.60-1.20); Globulin, Blood 3.4 g/dL (2.2-4.0); Potassium, Blood 4.6 mmol/L (3.5-5.5); Total Protein, Blood 6.3 g/dL (6.4-8.2)
--- NOTE | 2022-09-18 14:49 | NUR ---
WOUND CARE HOLD WOUND VAC UNTIL FRIDAY APPT PER DR. FLORES. BLUE WOUNDS CLEANSED WITH NS, CALCIUM ALGINATE TO WOUND BEDS, COVERED WITH EXU-DRY, ROLLED GAUZE, TAI. PT INSTUCTED ONE DRESSING CHANGE IF NEEDED. PT INSTUCTED ON WHAT VAC SUPPLIES TO BRING TO OUTPATIENT APPT. HE VERBALIZED UNDERSTANDING
[2022-09-18] MEDS ORDERED: ACET325 PO (15:14)
[2022-09-18] MEDS ORDERED: SUBOXONE 2 MG-1 EAC1 SL (15:17)
[2022-09-18] MEDS ORDERED: BUPR150ER PO (15:18)
[2022-09-18] MEDS ORDERED: GABA300 PO (15:19)
[2022-09-18] MEDS ORDERED: Calcium Acetat667 MG PO (15:19)
[2022-09-18] MEDS ORDERED: Seroquel Xr50 MG PO (15:21)
[2022-09-18] MEDS ORDERED: METO50ER PO (15:21)
--- NOTE | 2022-09-18 16:15 | NUR ---
PT DISCHARGED AT 1555 ALL PAPER WORK REVIEWED AND EDUCATIONAL MATERIAL SENT WITH PT. PT HAS HAD INSTRUCTION FROM WOUND CARE NURSE AND CASE FOR WHAT HE NEEDS TO HAVE FOR FIRST APPOINTMENT WITH WOUND CARE AND NEEDS AT HOME. PT HAS WOUND VAC AND SUPPLIES WITH HIM. PT WAS ESCORTED OUT TO VIA WHEELCHAIR AND TAXI PICKED PT UP AT [place]. MEDICATION FAXED TO PHARMACY AND PT TO STOP AT [facility] ON GO TO [facility]. NO DISTRESS NOTED.
[2022-09-24] MEDS ORDERED: CEPH500 PO (10:00)
== END 2022-09-18 16:00 | disposition home or self-care (01) | DRG 853 ==
LOC: ER 16:14 → ICUW 20:56 → MEDS 20:56 → ICUW 21:55 → MEDS 09-10 17:41
PROVIDERS: Family Medicine; Hospitalist; Internal Medicine; Internal Medicine Critical Care Medicine; Student in an Organized Health Care Education/Training Program; ADMIT Internal Medicine
PROC: 3E03329 Introduction of Other Anti-infective into Peripheral Vein, Percutaneous Approach (ICD-10-PCS; 2022-09-01)
PROC: 0BH18EZ Insertion of Endotracheal Airway into Trachea, Via Natural or Artificial Opening Endoscopic (ICD-10-PCS; 2022-09-03)
PROC: 5A1945Z Respiratory Ventilation, 24-96 Consecutive Hours (ICD-10-PCS; 2022-09-03)
PROC: 02HV33Z Insertion of Infusion Device into Superior Vena Cava, Percutaneous Approach (ICD-10-PCS; 2022-09-03)
PROC: 0JBG0ZZ Excision of Right Lower Arm Subcutaneous Tissue and Fascia, Open Approach (ICD-10-PCS; principal; 2022-09-05)
PROC: 0JBH0ZZ Excision of Left Lower Arm Subcutaneous Tissue and Fascia, Open Approach (ICD-10-PCS; 2022-09-05)
DX: A41.9 Sepsis, unspecified organism (principal); E11.00 Type 2 diabetes mellitus with hyperosmolarity without nonketotic hyperglycemic-hyperosmolar coma (NKHHC); G92.8 Other toxic encephalopathy; I50.43 Acute on chronic combined systolic (congestive) and diastolic (congestive) heart failure; J96.01 Acute respiratory failure with hypoxia; L02.413 Cutaneous abscess of right upper limb; L02.414 Cutaneous abscess of left upper limb; Z68.41 Body mass index [BMI] 40.0-44.9, adult; N17.9 Acute kidney failure, unspecified; E87.20 Acidosis, unspecified; E87.0 Hyperosmolality and hypernatremia; L03.113 Cellulitis of right upper limb; L03.114 Cellulitis of left upper limb; F15.10 Other stimulant abuse, uncomplicated; I11.0 Hypertensive heart disease with heart failure; K21.9 Gastro-esophageal reflux disease without esophagitis; E83.39 Other disorders of phosphorus metabolism; E66.9 Obesity, unspecified; G47.33 Obstructive sleep apnea (adult) (pediatric); Z79.4 Long term (current) use of insulin; Z79.899 Other long term (current) drug therapy
CPT/HCPCS: 31720; 36415; 36600; 51702; 51703; 70450; 71045; 73070; 73201; 76770; 76882; 80048; 80053; 80069; 80202; 81001; 81003; 82330; 82436; 82803; 82947; 83605; 83735; 83930; 84100; 84132; 84300; 84443; 84478; 85025; 85651; 86140; 86704; 86708; 86803; 87040; 87070; 87075; 87076; 87147; 87205; 87340; 87389; 93005; 93010; 93308; 93321; 94002; 94003; 94640; 94660; 94664; 94760; 94762; 96365-59; 96367-59; 97110; 97162; 97530; 99285-25; A9270; C1751; C1769; C9113; G0480; J0295; J0360; J0572; J1630; J1650; J1815; J1885; J1940; J2060; J2405; J2543; J2704; J3010; J3370; J3475; J3480; J7030; J7042; J7050; J7060; J7120; Q9967

== ENCOUNTER 2022-09-20 01:33 | Day surgery (SDC) | payer OTHER ==
[~2022-09-20 01:33] MED LIST changes: +ACET325 PO; +BUPR150ER PO; +Calcium Acetat667 MG PO; +GABA300 PO; +METO50ER PO; +MIRT30 PO; +SUBOXONE 2 MG-1 EAC1 SL; +Seroquel Xr50 MG PO; +TAMSULOSIN HCL0.4 M1 PO
== END 2022-09-20 22:55 | disposition home or self-care (01) ==
LOC: WOUND 01:33
DX: E11.628 Type 2 diabetes mellitus with other skin complications (principal); L02.414 Cutaneous abscess of left upper limb; L02.413 Cutaneous abscess of right upper limb; E11.29 Type 2 diabetes mellitus with other diabetic kidney complication; E11.59 Type 2 diabetes mellitus with other circulatory complications; E11.21 Type 2 diabetes mellitus with diabetic nephropathy; I10 Essential (primary) hypertension
CPT/HCPCS: A9270

== ENCOUNTER 2022-09-25 08:26 | Emergency (ER) | payer OTHER ==
[~2022-09-25] VITALS: Ht 182.9 cm; Wt 163.3 kg
[2022-09-25 09:52] LABS: Albumin, Blood 2.7 g/dL (3.4-5.0); Albumin/Globulin Ratio 0.7 (0.8-1.8); Bilirubin, Total 0.9 mg/dL (0.1-1.0); Bun/Creatinine Ratio 25.4 (12.0-20.0); Calcium, Blood 8.8 mg/dL (8.5-10.1); Creatinine, Blood 0.67 mg/dL (0.60-1.20); Globulin, Blood 3.8 g/dL (2.2-4.0); Potassium, Blood 4.4 mmol/L (3.5-5.5); Total Protein, Blood 6.5 g/dL (6.4-8.2)
[2022-09-25] MEDS ORDERED: Bactrim Ds Tab1 EACH PO (11:15)
== END 2022-09-25 11:24 | disposition home or self-care (01) ==
LOC: ER 08:26
PROVIDERS: Physician Assistant
DX: L03.113 Cellulitis of right upper limb (principal); E11.9 Type 2 diabetes mellitus without complications; Z79.899 Other long term (current) drug therapy; Z79.4 Long term (current) use of insulin
CPT/HCPCS: 80053; 96372; 99283-25; A9270; J0696

== ENCOUNTER 2022-09-25 16:27 | Emergency (ER) | payer OTHER ==
[~2022-09-25] VITALS: Ht 182.9 cm; Wt 163.3 kg
[~2022-09-25 16:27] MED LIST changes: +Bactrim Ds Tab1 EACH PO
== END 2022-09-25 17:32 | disposition home or self-care (01) ==
LOC: ER 16:27
DX: L03.113 Cellulitis of right upper limb (principal); E11.9 Type 2 diabetes mellitus without complications; Z79.899 Other long term (current) drug therapy; Z79.4 Long term (current) use of insulin
CPT/HCPCS: 99281; A9270

== ENCOUNTER → 2022-09-26 | Outpatient (CLI) | payer OTHER | END | disposition home or self-care (01) | LOC: LAB 15:40 → LAB SHORT 15:40 | PROVIDERS: Family Medicine | DX: Z51.81 Encounter for therapeutic drug level monitoring (principal); Z79.899 Other long term (current) drug therapy | CPT/HCPCS: G0480 ==

== ENCOUNTER 2022-09-30 00:20 | Day surgery (SDC) | payer OTHER ==
[2022-09-30] MEDS ORDERED: CEPH500 PO (20:03)
[2022-09-30] MEDS ORDERED: Bactrim Ds Tab1 EACH PO (20:03)
== END 2022-09-30 22:54 | disposition home or self-care (01) ==
LOC: WOUND 00:20
DX: L02.414 Cutaneous abscess of left upper limb (principal); L02.413 Cutaneous abscess of right upper limb; E11.29 Type 2 diabetes mellitus with other diabetic kidney complication; E11.59 Type 2 diabetes mellitus with other circulatory complications; E11.21 Type 2 diabetes mellitus with diabetic nephropathy; I10 Essential (primary) hypertension
CPT/HCPCS: G0463

== ENCOUNTER → 2022-09-30 | Outpatient (CLI) | payer OTHER | END | disposition home or self-care (01) | LOC: LAB 14:32 → LAB SHORT 14:32 | DX: Z51.81 Encounter for therapeutic drug level monitoring (principal); Z79.899 Other long term (current) drug therapy | CPT/HCPCS: G0480 ==

== ENCOUNTER 2022-10-02 00:30 | Day surgery (SDC) | payer OTHER | END 2022-10-02 23:42 | disposition home or self-care (01) | LOC: WOUND | DX: S41.102A Unspecified open wound of left upper arm, initial encounter (principal); S41.101A Unspecified open wound of right upper arm, initial encounter; E11.622 Type 2 diabetes mellitus with other skin ulcer; L02.414 Cutaneous abscess of left upper limb; L02.413 Cutaneous abscess of right upper limb; X58.XXXA Exposure to other specified factors, initial encounter | CPT/HCPCS: A9270; G0463 ==

== ENCOUNTER 2022-10-04 00:02 | Day surgery (SDC) | payer OTHER | END 2022-10-04 23:58 | disposition home or self-care (01) | LOC: WOUND 00:02 | DX: E11.622 Type 2 diabetes mellitus with other skin ulcer (principal); L02.414 Cutaneous abscess of left upper limb; L02.413 Cutaneous abscess of right upper limb | CPT/HCPCS: G0463 ==

== ENCOUNTER 2022-10-04 08:16 | Emergency (ER) | payer OTHER ==
[~2022-10-04] VITALS: Ht 170.2 cm; Wt 81.7 kg
[2022-10-04 10:56] LABS: BASOPHILS ABSOLUTE AUTO 0.03 K/mm3 (0.00-0.23); BASOPHILS PERCENT AUTO 0 % (0-2); EOSINOPHILS PERCENT AUTO 1 % (0-6); Hematocrit 32.6 % (37.0-53.0); IMMATURE GRAN ABSOLUTE AUTO 0.11 K/mm3 (0.00-0.10); IMMATURE GRAN PERCENT AUTO 1 % (0-1); LYMPHOCYTES PERCENT AUTO 16 % (21-46); MONOCYTES ABSOLUTE AUTO 0.91 K/mm3 (0.16-1.47); MONOCYTES PERCENT AUTO 8 % (4-13); Mean Corpuscular HGB 25.1 pg (26.0-34.0); Mean Corpuscular HGB Conc 30.7 g/dL (31.5-36.5); Mean Corpuscular Volume 82 fL (80-100); Mean Platelet Volume 10.8 fL (9.1-12.4); NEUTROPHILS ABSOLUTE AUTO 8.08 K/mm3 (1.96-9.15); NEUTROPHILS PERCENT AUTO 74 % (41-73); Platelet Count 292 K/mm3 (150-400); RDW Coefficient Variation 15.5 % (11.7-14.2); RDW Standard Deviation 46.3 fL (35.1-46.3); Red Blood Cell Count 3.99 M/mm3 (4.30-5.90); White Blood Cell Count 10.93 K/mm3 (4.00-11.30)
[2022-10-04 11:06] LABS: Albumin, Blood 2.5 g/dL (3.4-5.0); Albumin/Globulin Ratio 0.7 (0.8-1.8); Bilirubin, Total 0.3 mg/dL (0.1-1.0); Bun/Creatinine Ratio 19.3 (12.0-20.0); Calcium, Blood 8.9 mg/dL (8.5-10.1); Creatinine, Blood 1.61 mg/dL (0.60-1.20); Globulin, Blood 3.8 g/dL (2.2-4.0); Potassium, Blood 6.7 mmol/L (3.5-5.5); Total Protein, Blood 6.3 g/dL (6.4-8.2)
== END 2022-10-04 13:43 | disposition home or self-care (01) ==
LOC: ER 08:16
PROVIDERS: Physician Assistant
DX: L03.113 Cellulitis of right upper limb (principal); E11.9 Type 2 diabetes mellitus without complications; Z79.899 Other long term (current) drug therapy; Z79.4 Long term (current) use of insulin
CPT/HCPCS: 36415; 80053; 83605; 84132; 85025; 93005; 93010

== ENCOUNTER 2022-10-05 09:09 | Inpatient (IN) | payer OTHER ==
[~2022-10-05] VITALS: Ht 182.9 cm; Wt 151.1 kg
[2022-10-05 10:11] LABS: BASOPHILS ABSOLUTE AUTO 0.03 K/mm3 (0.00-0.23); BASOPHILS PERCENT AUTO 0 % (0-2); EOSINOPHILS PERCENT AUTO 0 % (0-6); Hematocrit 31.6 % (37.0-53.0); Hemoglobin 9.4 g/dL (13.5-17.5); IMMATURE GRAN ABSOLUTE AUTO 0.08 K/mm3 (0.00-0.10); IMMATURE GRAN PERCENT AUTO 1 % (0-1); LYMPHOCYTES ABSOLUTE AUTO 0.51 K/mm3 (0.84-5.20); LYMPHOCYTES PERCENT AUTO 6 % (21-46); MONOCYTES ABSOLUTE AUTO 0.24 K/mm3 (0.16-1.47); MONOCYTES PERCENT AUTO 3 % (4-13); Mean Corpuscular HGB 24.9 pg (26.0-34.0); Mean Corpuscular HGB Conc 29.7 g/dL (31.5-36.5); Mean Corpuscular Volume 84 fL (80-100); Mean Platelet Volume 11.8 fL (9.1-12.4); NEUTROPHILS ABSOLUTE AUTO 7.65 K/mm3 (1.96-9.15); NEUTROPHILS PERCENT AUTO 90 % (41-73); Platelet Count 280 K/mm3 (150-400); RDW Coefficient Variation 15.6 % (11.7-14.2); RDW Standard Deviation 47.8 fL (35.1-46.3); Red Blood Cell Count 3.77 M/mm3 (4.30-5.90); White Blood Cell Count 8.51 K/mm3 (4.00-11.30)
[2022-10-05 10:29] LABS: Albumin, Blood 2.7 g/dL (3.4-5.0); Albumin/Globulin Ratio 0.7 (0.8-1.8); Bilirubin, Total 0.3 mg/dL (0.1-1.0); Bun/Creatinine Ratio 21.6 (12.0-20.0); Calcium, Blood 8.6 mg/dL (8.5-10.1); Creatinine, Blood 2.5 mg/dL (0.60-1.20); Globulin, Blood 3.8 g/dL (2.2-4.0); Potassium, Blood 7.3 mmol/L (3.5-5.5); Total Protein, Blood 6.5 g/dL (6.4-8.2)
[2022-10-05 11:43] LABS: PCO2 Arterial 52.4 mmHg (35-45); PO2 Arterial 104 mmHg (80-100)
[2022-10-05 11:44] LABS: pH Blood Arterial 7.27 (7.35-7.45)
--- NOTE | 2022-10-05 14:30 | NUR ---
ASSUMED CARE: PT ARRIVED FROM ED ON [facility]. STAFF ATTEMPTED TO TRANSFER WITH SLIDER SHEET AND PT SAID "NO, I KNOW WHAT I CAN DO" AND NEARLY ROLLED OUT OF BED BEFORE STAFF CAUGHT HIM. PT WEAKLY SWUNG HIS ARMS AT STAFF TO GET OUT OF HIS WAY. ATTEMPTED TO GET UP AGAIN AND WAS PROVIDED WITH WALKER AND 3 PERSON ASSIST. GAIT VERY UNSTEADY. SPEECH SLURRED, SHAKEY IMPULSIVE. BED ALARM ON
[2022-10-05 14:47] LABS: Bun/Creatinine Ratio 19.7 (12.0-20.0); Calcium, Blood 8.8 mg/dL (8.5-10.1); Creatinine, Blood 2.94 mg/dL (0.60-1.20); Potassium, Blood 6.2 mmol/L (3.5-5.5)
[2022-10-05 15:54] LABS: Base Excess Venous -3.9 mmol/L; Bicarbonate Venous 20.9 mmol/L (24.0-30.0); PO2 Venous 69.4 mmHg (38-42); pH Blood Venous 7.25 (7.34-7.37)
--- NOTE | 2022-10-05 16:20 | NUR ---
PT'S CBGS HAVE BEEN BETWEEN 40 AND 60. 1 AMP D50 HAS BEEN GIVEN AND TRENDING SUGARS NOTED THAT CBGS WERE DECREASING. CALL TO DR DONNELLY WHO STATED TO START D5 GTT AND GIVE ANOTHER AMP OF D50 AND CHECK CBGS Q 15 UNTIL TRENDING UP. RESIDENTIAL MANAGER AT BEDSIDE ADMINISTERING MEDS AT THIS TIME. DISCUSSED PT'S VBG WITH DR DONNELLY. WANTED TO PUT PT ON BIPAP TO SEE HOW HE TOLERATED IT. NURSE INFORMED HIM THAT PT IS NOT EVEN TOLERATING GOWN OR TELE AND KEEPS REMOVING. AT THIS TIME, ORDER IS FOR CHANGE IN IVF AND TO RECHECK VBG IN 4 HOURS.
--- NOTE | 2022-10-05 18:41 | NUR ---
SHIFT SUMMARY: PT TAKEN TO CT FOR RIGHT EXTREMITY SCAN. PT DOES NOT FOLLOW DIRECTIONS WELL AND MOVED ARM FREQUENTLY DURING TEST. WHEN STAFF ATTEMPTED TO REORIENT HE ATTEMPTED TO SWING ELBOWS. DURING TRANSPORT PT REMOVED TELEMETRY AND ATTEMPTED TO CLIMB OUT OF BED MULTIPLE TIMES. SOMNOLENT, SLURRED SPEECH, DOES NOT FOLLOW DIRECTIONS. TELEMETRY SHOWS NSR. IVFS CHANGED TO D5W AND MONITORING CBG Q1 HOUR UNTIL STABLE. DR HIGGINS ATTEMPTED TO CONSENT PT FOR I AND D TOMORROW BUT PT TOO SOMNOLENT. NPO AT THIS TIME.
[2022-10-05 20:23] LABS: Base Excess Venous -4.8 mmol/L; Bicarbonate Venous 20.4 mmol/L (24.0-30.0); PCO2 Venous 45.9 mmHg (38-42); pH Blood Venous 7.29 (7.34-7.37)
[2022-10-05 23:56] LABS: Bun/Creatinine Ratio 18.4 (12.0-20.0); Calcium, Blood 8.3 mg/dL (8.5-10.1); Creatinine, Blood 3.48 mg/dL (0.60-1.20); Potassium, Blood 6.4 mmol/L (3.5-5.5)
[2022-10-06 03:41] LABS: BASOPHILS ABSOLUTE AUTO 0.04 K/mm3 (0.00-0.23); BASOPHILS PERCENT AUTO 0 % (0-2); EOSINOPHILS ABSOLUTE AUTO 0.03 K/mm3 (0.00-0.68); EOSINOPHILS PERCENT AUTO 0 % (0-6); Hematocrit 30.9 % (37.0-53.0); Hemoglobin 9.2 g/dL (13.5-17.5); IMMATURE GRAN ABSOLUTE AUTO 0.08 K/mm3 (0.00-0.10); IMMATURE GRAN PERCENT AUTO 1 % (0-1); LYMPHOCYTES ABSOLUTE AUTO 1.37 K/mm3 (0.84-5.20); LYMPHOCYTES PERCENT AUTO 12 % (21-46); MONOCYTES ABSOLUTE AUTO 0.93 K/mm3 (0.16-1.47); MONOCYTES PERCENT AUTO 8 % (4-13); Mean Corpuscular HGB 24.9 pg (26.0-34.0); Mean Corpuscular HGB Conc 29.8 g/dL (31.5-36.5); Mean Corpuscular Volume 84 fL (80-100); Mean Platelet Volume 11.2 fL (9.1-12.4); NEUTROPHILS ABSOLUTE AUTO 8.59 K/mm3 (1.96-9.15); NEUTROPHILS PERCENT AUTO 78 % (41-73); Platelet Count 314 K/mm3 (150-400); RDW Coefficient Variation 16.2 % (11.7-14.2); RDW Standard Deviation 49.8 fL (35.1-46.3); Red Blood Cell Count 3.69 M/mm3 (4.30-5.90); White Blood Cell Count 11.04 K/mm3 (4.00-11.30)
[2022-10-06 04:48] LABS: Albumin/Globulin Ratio 0.8 (0.8-1.8); Bilirubin, Total 0.2 mg/dL (0.1-1.0); Bun/Creatinine Ratio 18.4 (12.0-20.0); Calcium, Blood 8.4 mg/dL (8.5-10.1); Creatinine, Blood 3.64 mg/dL (0.60-1.20); Globulin, Blood 3.7 g/dL (2.2-4.0); Potassium, Blood 6.4 mmol/L (3.5-5.5); Total Protein, Blood 6.7 g/dL (6.4-8.2)
--- NOTE | 2022-10-06 06:22 | NUR ---
SHIFT SUMMARY PATIENT ALERT AND ORIENTED X2-3. PATIENT CONFUSED AND FORGETFUL OVERNIGHT. AT TIMES AGITATED, COMBATIVE, PULLING AT LINES, AND NON-DIRECTABLE RESULTING IN THE PATIENT HAVING TO BE PLACED IN RESTRAINTS. PATIENT IS CURRENTLY NOT IN RESTRAINTS, STILL CONFUSED, BUT ABLE TO TAKE SOME DIRECTION. LUNG SOUNDS DIMINISHED IN THE BASES. PATIENT HAS SLEEP APNEA, 3 LITERS O2 VIA NASAL CANULA APPLIED TO KEEP HIS O2 SAT >90%. TELEMETRY SINUS RHYTHM IN THE 70'S. 2+ EDEMA NOTED IN ALL EXTREMETIES. PATIENT DID NOT VOID OVERNIGHT, BLADDER SCAN SHOWED 146. WILL CONTINUE TO MONITOR. CALL LIGHT WITHIN REACH.
--- NOTE | 2022-10-06 10:37 | NUR ---
ASSUMPTION OF CARE: PATIENT HAS BEEN SLEEPING IN THE RECLINER, TAB ALARM, AND STAFF MONITORING CLOSELY. PATIENT REFUSES TO LAY IN BED OR BE LIFTED, TO BED FOR THIS RN. MIRIAN HAS BEEN MINIMALLY IMPROVED WITH ABILITY FOR STAFF TO CARE. NEPHROLOGY HAS NAN CONSULTED. DENIES CHEST PAIN. NO ACTIVE SIGNS OF CHEST PAIN. PATIENT SLEEPING WITH O2 SUPPLEMENTATION IN ORDER TO KEEPS SAT ELEVATED. STILL HYPERKALEMIC. IV HUMULIN, AND DEXTROSE PUSH WITH CONTINUED DEXTROSE INFUSION AT 75. HELD LONG ACTIVE PER PROVIDER. POTENTIAL I & D TODAY. NPO PRESUMPTIVELY. POWERGLIDE HAS BEEN ESTABLISHED. BLADDER SCAN REVELAED ONLY 110 mL WILL CHECK PERIODICALLY TO ENSURE DIURETICS WORKING AND POTENTIAL RETENTION. NO BM, MODERATE EDEMA GLOBALLY. WILL CONTINUE TO MONITOR UNTIL SHIFT CHANGE.
[2022-10-06 11:15] LABS: Uric Acid, Blood 9.3 mg/dL (3.5-7.2)
[2022-10-06 11:24] LABS: Potassium, Blood 7.1 mmol/L (3.5-5.5)
[2022-10-06 12:41] LABS: PCO2 Arterial 75.3 mmHg (35-45); pH Blood Arterial 7.11 (7.35-7.45)
[2022-10-06 14:21] LABS: Calcium, Blood 7.3 mg/dL (8.5-10.1); Creatinine, Blood 3.62 mg/dL (0.60-1.20); Potassium, Blood 5.8 mmol/L (3.5-5.5)
[2022-10-06 14:28] LABS: Source, Urine Foley catheter
[2022-10-06 14:43] LABS: Blood, Urine Neg (Neg); Color, Urine Yellow (P-Yellow); Glucose Qualitative, Urine 2+ (Neg); Ketones, Urine 1+ (Neg); Leukocyte Esterase, Urine Neg (Neg); Nitrite, Urine Neg (Neg); Protein, Urine 2+ (Neg); Specific Gravity, Urine 1.025 (1.003-1.022); Urobilinogen, Urine NORM (Normal)
[2022-10-06 14:59] LABS: Base Excess Venous -5.3 mmol/L; Bicarbonate Venous 19.6 mmol/L (24.0-30.0); pH Blood Venous 7.19 (7.34-7.37)
[2022-10-06 15:08] LABS: Bilirubin, Urine 3+ (Neg)
[2022-10-06 15:13] LABS: U Amphetamine Screen Not Detected; U Barbituate Screen Not Detected; U Benzodiazapine Screen Not Detected; U Buprenorphine Screen DETECTED; U Cannabinoids Screen Not Detected; U Cocaine Screen Not Detected; U Methadone Screen Not Detected; U Methamphetamine Screen Not Detected; U Opiates Screen Not Detected; U Phencyclidine Screen Not Detected
[2022-10-06 15:14] LABS: U Oxycodone Screen Not Detected; U Propoxyphene Screen Not Detected
[2022-10-06 15:22] LABS: Appearance, Urine Clear (Clear)
[2022-10-06 15:26] LABS: Bacteria Many /hpf; Calcium Oxalate Crystals Few /hpf; Hyaline Casts 0-2 /lpf (0-2); Squamous Epithelial Cells Rare /hpf (Few)
[2022-10-06 16:05] LABS: Eosinophils-Raw #,Urine 0
[2022-10-06 17:47] LABS: Base Excess Venous -4.3 mmol/L; Bicarbonate Venous 20.5 mmol/L (24.0-30.0); PCO2 Venous 57.8 mmHg (38-42); PO2 Venous 55.8 mmHg (38-42); pH Blood Venous 7.21 (7.34-7.37)
--- NOTE | 2022-10-06 17:48 | NUR ---
TRANSFER: Pt transferred to ICU at 1725. Provider called for precedex order at pt attempting to climb out of bed.
[2022-10-06 17:52] LABS: pH Blood Venous 7.21 (7.34-7.37)
[2022-10-06 17:53] LABS: Base Excess Venous -4.3 mmol/L; Bicarbonate Venous 20.5 mmol/L (24.0-30.0); PCO2 Venous 57.8 mmHg (38-42); PO2 Venous 55.8 mmHg (38-42)
--- NOTE | 2022-10-06 18:09 | NUR ---
TRANSFER SUMARY: PATIENT WAS TRANSFERRED TO ICU 6 AT 1725 DUE TO INCREASED BIPAP REFUSAL, AND RAPID DECLINING MENTATION. PATIENT REFUSING BIPAP AND AT RA WAS 83-93 % DEPENDING ON POSITION AND IF AWAKE OR SLEEP. PATIENT ALERT TO SELF, ONLY, ORHTO WAS NOT ABLE TO DO I & D DUE TO WORSEING CONDIITION. PATIENT AGITATED NOT SWINGING AT STAFF BUT GETTING OUT OF BED, EXTREME FALL RISK. REPORT WAS GIVEN TO PREPARER MAKING DEPARTMENT, NO FURTHER QUESTIONS OR CONCERNS FROM PREPARER MAKING DEPARTMENT.
--- NOTE | 2022-10-06 19:15 | NUR ---
END OF SHIFT SUMMARY: Pt transfered to ICU this evening. Pt initially confused and attempting to climb out of bed with spo2 of 86%. Precedex initiated. Power glide startd in the RUE and LUE power glide discontinued due to infiltration. Antibiotics were started and bumex given. Once pt able to tolerate BIPAP it was initiated. He continues to require frequent reorientation due to persistant cord pulling.
[2022-10-06 21:15] LABS: PCO2 Arterial 56.4 mmHg (35-45); PO2 Arterial 92.5 mmHg (80-100)
[2022-10-06 21:16] LABS: pH Blood Arterial 7.23 (7.35-7.45)
--- NOTE | 2022-10-06 21:20 | NUR ---
PHYSICIAN UPDATE DR HICKS, NOTIFIED ABG. ORDER TO RECHECK W/MORNING LABS A VBG OR RECHECK IF PT STATUS CHANGES.
[2022-10-07 01:00] LABS: PCO2 Arterial 52.6 mmHg (35-45)
[2022-10-07 01:01] LABS: PO2 Arterial 84.8 mmHg (80-100)
[2022-10-07 01:02] LABS: pH Blood Arterial 7.27 (7.35-7.45)
--- NOTE | 2022-10-07 02:07 | NUR ---
HYPOTENSION FLUID BOLUS AND ALBUMIN INFUSING. CALL TO DR GEORGE REGARDING LEVOPHED OR BP 67/44 MAP 52 HEART RATE 52. OBTAINED ORDER
[2022-10-07 03:11] LABS: Base Excess Venous -4.4 mmol/L; Bicarbonate Venous 20.7 mmol/L (24.0-30.0); PCO2 Venous 54.3 mmHg (38-42); pH Blood Venous 7.24 (7.34-7.37)
[2022-10-07 03:26] LABS: BASOPHILS ABSOLUTE AUTO 0.03 K/mm3 (0.00-0.23); BASOPHILS PERCENT AUTO 0 % (0-2); EOSINOPHILS ABSOLUTE AUTO 0.05 K/mm3 (0.00-0.68); EOSINOPHILS PERCENT AUTO 1 % (0-6); Hematocrit 27.2 % (37.0-53.0); Hemoglobin 8.3 g/dL (13.5-17.5); IMMATURE GRAN ABSOLUTE AUTO 0.05 K/mm3 (0.00-0.10); IMMATURE GRAN PERCENT AUTO 1 % (0-1); LYMPHOCYTES ABSOLUTE AUTO 1.55 K/mm3 (0.84-5.20); LYMPHOCYTES PERCENT AUTO 23 % (21-46); MONOCYTES ABSOLUTE AUTO 0.78 K/mm3 (0.16-1.47); MONOCYTES PERCENT AUTO 12 % (4-13); Mean Corpuscular HGB 24.9 pg (26.0-34.0); Mean Corpuscular HGB Conc 30.5 g/dL (31.5-36.5); Mean Corpuscular Volume 82 fL (80-100); Mean Platelet Volume 11.5 fL (9.1-12.4); NEUTROPHILS ABSOLUTE AUTO 4.34 K/mm3 (1.96-9.15); NEUTROPHILS PERCENT AUTO 64 % (41-73); Platelet Count 246 K/mm3 (150-400); RDW Coefficient Variation 15.9 % (11.7-14.2); RDW Standard Deviation 47.6 fL (35.1-46.3); Red Blood Cell Count 3.33 M/mm3 (4.30-5.90)
[2022-10-07 05:03] LABS: Magnesium, Blood 2.7 mg/dL (1.6-2.4)
[2022-10-07 05:11] LABS: CPK Creatine Kinase 389 U/L (39-308); Thyroid Stimulating Hormone 0.784 uIU/mL (0.360-4.800); Uric Acid, Blood 9.9 mg/dL (3.5-7.2)
[2022-10-07 05:20] LABS: Alanine Aminotransfer (ALT/SGP 33 U/L (12-78); Alk Phos 104 U/L (50-136); Anion Gap 5 mmol/L (6-16); Aspartate Aminotrans (AST/SGOT 41 U/L (12-37); Bilirubin, Direct <0.1 mg/dL (0.0-0.3); Bilirubin, Indirect Unable to Calculate mg/dL (0.1-0.7); Bilirubin, Total 0.4 mg/dL (0.1-1.0); Blood Urea Nitrogen 69 mg/dL (8-24); Bun/Creatinine Ratio 20.1 (12.0-20.0); CO2, Blood 24 mmol/L (21-32); Calcium, Blood 7.6 mg/dL (8.5-10.1); Chloride, Blood 101 mmol/L (98-108); Creatinine, Blood 3.44 mg/dL (0.60-1.20); Glomerular Filtration Rate 20 (60-); Glucose, Blood 125 mg/dL (70-99); Phosphorus, Blood 6.3 mg/dL (2.5-4.9); Potassium, Blood 5.4 mmol/L (3.5-5.5); Sodium, Blood 130 mmol/L (136-145)
--- NOTE | 2022-10-07 06:29 | NUR ---
SUMMARY NEURO/PSYCH/MOBILITY: PT RESPONDS TO VERBAL STIMULI AND FOLLOWS SIMPLE COMMANDS. TRIES TO ASSIST WITH REPOSITIONING. WOKE UP ENOUGH ONCE TO ASK IF HE WAS "STILL IN THE HOSPITAL". PRECEDEX SEDATION TITRATED DOWN AND EVENTUALLY PUT ON SB DT HYPOTENSION AND BRADYCARDIA. PRN HALDOL AND ATIVAN FOR ANXIETY. PT WAS COMPLIANT W/TREATMENT THROUGHOUT SHIFT. PERRL. RESP: PT ON BIPAP 22/8, RR 20, 21%. PT COMPLIANT W/BIPAP ALL SHIFT. RR <20, SPO2 >92%. ABG AND VBG SLIGHTY IMPROVED. CARDIAC: SINUS MANUEL HR 50'S, SBP DECLINED DURING SHIFT W/MAP LESS THAN 60. LEVOPHED STARTED AT 2MCG/MIN. SBP 100-110, MAP >65. ALBUMIN GIVEN. NS 1L BOLUS GIVEN. GI: NO BM THIS SHIFT. PT DOES NOT COMPLAIN OF NAUSEA. : 24 HOUR URINE COLLECTION. BENITEZ IN PLACE DRAINING LIGHT YELLOW URINE TO GRAVITY. SKIN: BILATERAL AC HEALING I&D WOUNDS CLEANED AND MEPILEX APPLIED. IV ACCESS. 18GA CRYSTAL INFUSING LEVOPHED AND 5% DEXTROSE. PG JACKY SALINE LOCK. 20GA L HAND SALINE LOCK.
--- NOTE | 2022-10-07 08:50 | NUR ---
ASSUMED CARE: REPORT RECEIVED FROM JOSE Sethi RN. ASSUMED CARE OF THIS PT AT APPROX 0700. ON ASSESSMENT, THE PT IS RESTING QUIETLY. HE AWAKENS AFTER CONTINUED VERBAL STIMULUS & IS CONFUSED, ASKING WHY HE IS IN THE HOSPITAL REPEATEDLY, DESPITE THIS RN ANSWERING HIS QUESTIONS. LS ARE DIM T/O, PT USING BIPAP W/ SETTINGS: 22/8 & 25% FIO2, O2 SATS > 92%. MONITOR SHOWS SR W/ HR 60s, LEVOPHED INFUSING AT 2 MCG/MIN FOR HYPOTENSION. PT NPO R/T SOMNOLENCE, BT HYPOACTIVE. BENITEZ PATENT/ DRAINING YELLOW URINE W/ DIURESIS PER EMAR. 24 URINE SPECIMEN COLLECTION COMPLETED AT 1050 THIS AM. SKIN CONDITION OVERALL INTACT. NUMEROUS AREAS OF SCABS & SCARRING NOTED TO EXTREMITIES R/T PT's HX DRUG USE. DRESSINGS TO BUE I&D SURGICAL SITES ARE CDI. RIGHT HAND REMAINS SWOLLEN. WILL CONTINUE TO MONITOR & UPDATE NEEDED.
[2022-10-07 11:59] LABS: Protein, Urine Quantitative 15.9 mg/dL (0.0-11.9)
--- NOTE | 2022-10-07 12:00 | NUR ---
DR FLORES: PROVIDER AT BEDSIDE TO EVAL PT. UPDATED HIM ON PT's CURRENT STATUS. LEVOPHED REMAINS ON STANDBY W/ BP STABLE. DR FLORES PLANS TO TAKE THE PT TO THE OPERATING ROOM THIS AFTERNOON FOR AN I&D OF HIS RIGHT HAND. NO CHANGES AT THIS TIME, PT TO REMAIN NPO.
[2022-10-07 12:53] LABS: Vancomycin, Trough 22.2 ug/mL (5.0-10.0)
--- NOTE | 2022-10-07 18:54 | NUR ---
SHIFT SUMMARY: NO ACUTE CHANGES SINCE PRIOR UPDATES. PT HAS WOKEN UP SLIGHTLY MORE THIS EVENING & IS ABLE TO EXPRESS HIS NEEDS. HE IS ERRATIC W/ MOVEMENTS & NEEDS REMINDERS TO MOVE CAREFULLY TO NOT ACCIDENTALLY PULL OUT LINES/ TUBES. A&O TO SELF & FOLLOWING DIRECTIONS WHEN COMPLETELY AWAKE. LS DIM T/O, PT CURRENTLY ON 2L NC W/ O2 SATS > 92% ON AVG. MONITOR SHOWS SR W/ HR 70-90s, BP STABLE. LEVOPHED REMAINS OFF. PT NPO R/T OVERALL SOMNOLENCE. BENITEZ PATENT/ DRAINING CLEAR URINE. DIURESIS PER EMAR W/ COPIOUS AMNTS OUTPUT - SEE I&O. SKIN OVERALL INTACT, UNCHANGED FROM AM ASSESSMENT. DRESSINGS TO BILAT ACs REMAIN CDI. RIGHT HAND REMAINS SWOLLEN & RED. WILL CONTINUE TO MONITOR & REPORT OFF TO ONCOMING RN.
--- NOTE | 2022-10-07 20:03 | NUR ---
ASSUMED CARE ASSUMED CARE OF PT AT 1900, REPORT RECEIVED. PT IS NOTED RESTING QUIETLY AND RECLINING IN BED, ON ARRIVAL TO ROOM, HE IS ABLE TO STATE THAT HE IS IN [facility] FOR AN INFECTION IN HIS HAND HOWEVER WHEN ASKED TO STATE THE DATE, HE REPEATS THAT HE IS IN [facility]. HE REQUESTS WATER, REDIRECTS WITH FREQUENT REMINDERS THAT HE IS NPO FOR POSSIBLE I&D OF HIS HAND THIS AFTERNOON. VITALS REVIEWED WITH OFFGOING RN, SEE SHIFT ASSESSMENT FOR FURTHER.
[2022-10-08 03:44] LABS: BASOPHILS ABSOLUTE AUTO 0.03 K/mm3 (0.00-0.23); BASOPHILS PERCENT AUTO 0 % (0-2); EOSINOPHILS ABSOLUTE AUTO 0.08 K/mm3 (0.00-0.68); EOSINOPHILS PERCENT AUTO 1 % (0-6); Hematocrit 31.1 % (37.0-53.0); Hemoglobin 9.5 g/dL (13.5-17.5); IMMATURE GRAN ABSOLUTE AUTO 0.04 K/mm3 (0.00-0.10); IMMATURE GRAN PERCENT AUTO 1 % (0-1); LYMPHOCYTES ABSOLUTE AUTO 1.26 K/mm3 (0.84-5.20); LYMPHOCYTES PERCENT AUTO 18 % (21-46); MONOCYTES ABSOLUTE AUTO 1.07 K/mm3 (0.16-1.47); MONOCYTES PERCENT AUTO 15 % (4-13); Mean Corpuscular HGB 24.2 pg (26.0-34.0); Mean Corpuscular HGB Conc 30.5 g/dL (31.5-36.5); Mean Corpuscular Volume 79 fL (80-100); Mean Platelet Volume 11.8 fL (9.1-12.4); NEUTROPHILS ABSOLUTE AUTO 4.67 K/mm3 (1.96-9.15); NEUTROPHILS PERCENT AUTO 65 % (41-73); Platelet Count 315 K/mm3 (150-400); RDW Coefficient Variation 15.6 % (11.7-14.2); RDW Standard Deviation 44.4 fL (35.1-46.3); Red Blood Cell Count 3.92 M/mm3 (4.30-5.90); White Blood Cell Count 7.15 K/mm3 (4.00-11.30)
[2022-10-08 04:25] LABS: Anion Gap 2 mmol/L (6-16); Blood Urea Nitrogen 49 mg/dL (8-24); CO2, Blood 31 mmol/L (21-32); Calcium, Blood 8.6 mg/dL (8.5-10.1); Chloride, Blood 106 mmol/L (98-108); Creatinine, Blood 1.14 mg/dL (0.60-1.20); Glomerular Filtration Rate 75 (60-); Glucose, Blood 102 mg/dL (70-99); Magnesium, Blood 2.3 mg/dL (1.6-2.4); Phosphorus, Blood 4.1 mg/dL (2.5-4.9); Potassium, Blood 4.3 mmol/L (3.5-5.5); Sodium, Blood 139 mmol/L (136-145)
--- NOTE | 2022-10-08 05:57 | NUR ---
PT FREQUENTLY AWAKE AND REMOVING MONITORING EQUIPMENT, VERBAL REDIRECTION WAS ADEQUATE UNTIL 0500 THIS AM AT WHICH TIME, PT WAS CONTINUOUSLY REMOVING OXYGEN AND SATS WERE DECREASING TO LOW 80S. ATTEMPTS MADE THROUGHOUT NOC TO CONCEAL TUBING, EDUCATE PT, PLACED ON CENTRAL MONITORING, BEDDING MODIFIED PER PT REQUEST, GOWN REMOVED PER PT REQUEST, DISCUSSED WITH DR GEORGE AND RESTRAINTS APPLIED THIS AM, EDUCATION PROVIDED TO PT REGARDING PURPOSE OF RESTRAINTS, OF NOTE TIMES AT WHICH PT IS REMOVING EQUIPMENT AND IV'S ARE PRIOR TO FULLY AWAKENING. PT MEDICATED FOR PAIN THROUGHOUT NOC WITH DILAUDID 1 MG IV, MEDICATED THROUGHOUT NOC FOR ANXIETY WITH ATIVAN 2 MG IV, SEE EMAR FOR ADMINISTRATION TIMES. HE DID TOLERATE BIPAP FOR A SHORT DURATION HOWEVER WITH ATTEMPTS TO PLACE PT ON BIPAP THIS AM HE WAS NOTED TO NEARLY IMMEDIATELY REMOVE IT, HE DOES REMAIN ORIENTED TO SELF AND CIRCUMSTANCES, EDUCATION PROVIDED REGARDING PURPOSE OF BIPAP, CONTINUED TO REFUSE. HE SELF DC'D EXTENDED DWELL IV THIS AM HOWEVER STATED THAT HE HAD NOT MEANT TO, HE WAS JUST PULLING TUBING/LINES OFF THAT WERE IRRITATING HIM HOWEVER HE DOES NOT WANT TO ENDURE CONTINUED IV STARTS FOR LOSS OF ACCESS AND AGREES THAT HE HAS LIMITED ACCESS R/T RECREATIONAL IV DRUG USE.
--- NOTE | 2022-10-08 08:55 | NUR ---
ASSUMED CARE: REPORT RECEIVED FROM KRISHNA Pelaez RN. ASSUMED CARE OF THIS PT AT APPROX 0700. ON ASSESSMENT, THE PT IS RESTLESS & INTERMITTENTLY CONFUSED. HE IS ORIENTED TO HIMSELF, FOLLOWING SOME DIRECTIONS & LOCATION. HE REPEATS "I WANT TO GO HOME" BUT THEN VERBALIZES HE UNDERSTANDS WHY HE IS ADMITTED & CANNOT GO HOME YET. LS DIM T/O, PT ON 2L NC W/ O2 SATS > 92% ON AVG. MONITOR SHOWS ST W/ HR 100-110s, BP STABLE. PT HAS NO GI COMPLAINTS, EXCEPT THIRST. NPO STATUS R/T PLANNED I&D OF RIGHT HAND ABCESS TODAY AT APPROX 1230. MOIST MOUTH SWABS PROVIDED. BENITEZ PATENT/ DRAINING LARGE AMNTS CLEAR YELLOW URINE. DIURESIS HELD THIS AM PER DR MONROE, WILL NOTIFY PROVIDER OF PT's UO AFTER 1300 TODAY. SKIN CONDITION OVERALL INTACT, NUMEROUS AREAS OF SCARRING & SCABS R/T IV DRUG USE. SURGICAL SITES TO BILATERAL ACs W/ DRESSINGS CDI. WILL CONTINUE TO MONITOR & UPDATE NEEDED.
--- NOTE | 2022-10-08 15:00 | NUR ---
SURGERY: PT OUT OF ROOM TO OR AT APPROX 1235, BACK TO ROOM AT 1335. THE PT IS DROWSY & HAS AN ORAL AIRWAY IN PLACE, W/ NRB AT 15 L/MIN, O2 SATS 100%. EYES ARE CLOSED & HE IS UNABLE TO FOLLOW ANY DIRECTIONS AT THIS TIME. AFTER APPROX 20 MINS, THE PT BEGINS TO GAG ON ORAL AIRWAY WHICH IS THEN REMOVED BY THIS RN, O2 SATS REMAIN STABLE & PT ABLE TO MAINTAIN AIRWAY. 2L NC PLACED W/ O2 SATS > 92%. PT HYPERTENSION INCREASED WHILE WAKING UP, HE BECOMES AGITATED & NEEDS FREQUENT REMINDERS THAT HE HAD SURGERY ON HIS HAND & TO BE GENTLE W/ THE SITE. BILAT SOFT WRIST RESTRAINTS IN PLACE FOR THIS PT WHO CONTINUES TO ATTEMPT CLIMBING OOB & PULLING AT LINES/ TUBES. SURGICAL SITE IS WELL-DRESSED W/ ADHESIVE WRAP COVERING DRESSING.
--- NOTE | 2022-10-08 18:39 | NUR ---
SHIFT SUMMARY: NO ACUTE CHANGES SINCE RETURN FROM SURGERY, PT REMAINS AGITATED AT TIMES & OTHERWISE IS SLEEPING. AGITATION DISCUSSED W/ DR EPPS & ORDERS PLACED FOR ZYPREXA & SEROQUEL. LS DIM T/O, PT ON 4L NC W/ O2 SATS > 92% ON AVG. PT TOLERATED BIPAP FOR APPROX 1 HR THIS EVENING BUT BECAME INCREASINGLY AGITATED & REMOVED BIPAP. MONITOR SHOWS ST W/ HR 100s, HYPERTENSION HAS BEEN PERSISTANT THIS AFTERNOON DESPITE PRN DOSE OF HYDRALAZINE PER EMAR. DR EPPS AWARE OF THIS ISSUE & NICARDIPINE DRIP HAS BEEN ORDERED. GOAL IS FOR SBP < 160. PT NPO R/T AMS & INABILITY TO FOLLOW DIRECTIONS. BENITEZ PATENT/ DRAINING LARGE AMNTS YELLOW URINE. SKIN CONDITION OVERALL UNCHANGED, PT REPOSITIONS SELF CONSTANTLY IN BED. SURGICAL SITE REMAINS WELL-DRESSED. WILL CONTINUE TO MONITOR & REPORT OFF TO ONCOMING RN.
[2022-10-09 04:13] LABS: Hematocrit 29.6 % (37.0-53.0)
[2022-10-09 04:34] LABS: Albumin, Blood 2.7 g/dL (3.4-5.0); Anion Gap 1 mmol/L (6-16); Blood Urea Nitrogen 23 mg/dL (8-24); Bun/Creatinine Ratio 31.7 (12.0-20.0); CO2, Blood 32 mmol/L (21-32); Calcium, Blood 8.4 mg/dL (8.5-10.1); Chloride, Blood 106 mmol/L (98-108); Creatinine, Blood 0.73 mg/dL (0.60-1.20); Glomerular Filtration Rate 107 (60-); Glucose, Blood 234 mg/dL (70-99); Magnesium, Blood 2.1 mg/dL (1.6-2.4); Phosphorus, Blood 1.9 mg/dL (2.5-4.9); Potassium, Blood 5.1 mmol/L (3.5-5.5); Sodium, Blood 139 mmol/L (136-145)
--- NOTE | 2022-10-09 05:24 | NUR ---
SHIFT SUMMARY PT STABLE THROUGHOUT SHIFT. MULTIPLE EPISODES OF RESTLESSNESS AND AGITATION, ESPECIALLY WHEN PLACED ON BIPAP. PLACED ON BIPAP AND PRECEDEX STARTED FOR BIPAP COMPLIANCE. PT REQUIRING RESTRAINTS DT PHYSICAL AGRESSION AND UNSAFE ACTIVITY. BENITEZ CATHETER IN PLACE R/T RENAL INJURY. 1200ML OUT THROUGHOUT SHIFT. VSS. DID HAVE EPISODES OF BRADYCARDIA IN THE 50s, HOWEVER, BP STABLE. STILL UNABLE TO FOLLOW COMMANDS OR RESPOND VERBALLY TO STIMULATION. NPO WITH D5 INFUSING. SEE EMAR FOR DOSING. PAIN MEDICATION GIVEN FOR PAIN R/T S/P SURGERY ON R HAND.
[2022-10-09 08:53] LABS: Vancomycin, Trough 12.1 ug/mL (5.0-10.0)
--- NOTE | 2022-10-09 11:00 | NUR ---
ASSUMED CARE OF GETACHEW AT 0700, HE IS ON PRECEDEX TITRATING TO EFFECT. HE HAS BEEN MEDICATED WITH BOTH DILAUDID FOR PAIN AND ATIVAN FOR AGITATION. HE CONT ON BIPAP AND IS TOLERATING WELL. HE IS DIFFICULT TO REORIENT AND REDIRECT WHEN HE ROUSES, DOESN'T KNOW WHERE HE IS OR WHY. BILATERAL AC SCARS ARE COVERED WITH MEPILEX, LEFT WITH SOME SLIGHT OOZING NOTED. RIGHT WRIST/HAND WITH POST OP DRESSING IN PLACE, IT IS COMING UNRAVELED FROM PT'S RESTLESSNESS BUT REMAINS COVERING OF THE WOUND. NICARDIPINE DRIP CONTINUES WITH BP 120'S/70'S.
[2022-10-09 12:08] LABS: IMMUNOGLOBULIN A, QN, SERUM 195 mg/dL (90-386); IMMUNOGLOBULIN G, QN, SERUM 906 mg/dL (603-1613); IMMUNOGLOBULIN M, QN, SERUM 38 mg/dL (20-172)
[2022-10-09 17:09] LABS: ANTIMYELOPEROXIDASE (MPO) ABS <0.2 units (0.0-0.9); ANTIPROTEINASE 3 (PR-3) ABS <0.2 units (0.0-0.9); ATYPICAL PANCA <1:20 titer (Neg:<1:20); CYTOPLASMIC (C-ANCA) <1:20 titer (Neg:<1:20); PERINUCLEAR (P-ANCA) <1:20 titer (Neg:<1:20)
--- NOTE | 2022-10-09 17:44 | NUR ---
GETACHEW CONTINUES ON BIPAP, HE ALARMS QUITE FREQUENTLY FOR "HIGH TIDAL VOLUME" BUT TOLERATES IT WELL. HE IS ON 35% FIO2. PRECEDEX HAS BEEN TITRATED TO EFFECT TODAY WITH 0.4MCG/KG CAUSING BRADYCARDIA BUT GOOD REST. 0.2MCG/KG CAUSING HIM TO GET SIDEWAYS IN THE BED. DILAUDID USED X 3 TODAY FOR GETACHEW'S COMPLAINTS OF PAIN, HALDOL USED ONCE WITH MINIMAL RESULT. ATIVAN USED WITH GOOD RESULTS WELL. HE COMPLAINS OF PAIN AND OF BEING COLD WHEN HE IS ALERT AND VERBAL, HE COMPLAINS ABOUT HIS RESTRAINTS. HE IS FREQUENTLY REORIENTED AND REDIRECTED, SOMETIMES WITH GOOD RESULTS.
[2022-10-10 05:42] LABS: Hematocrit 31.2 % (37.0-53.0); Hemoglobin 9.7 g/dL (13.5-17.5)
--- NOTE | 2022-10-10 05:59 | NUR ---
PT RESTLESS THROUGHOUT SHIFT. PT HAD LARGE BM AROUND 2300 WHILE SITTING ON BEDSIDE COMMODE. PT WAS ABLE TO RELAX AFTERWARD FOR A SHORT TIME. PT MENTATION IS CLEARING. PT A&O X2-3. PT REDIRECTABLE. PT FEELING UNCOMFORTABLE IN BED. WOULD BENEFIT FROM PT/OT CONSULT. PT ON CARDENE GTT, BUT SWITCHED TO PO. WILL TITRATE OFF PT CARDENE. PT ON PRECEDEX THROUGHOUT SHIFT. PT HAS BENITEZ CATHETER. CATHETER COULD POSSIBLY BE REMOVED TODAY, IF MENTATION CONTINUES TO CLEAR. PT ON AND OFF BIPAP THROUGHOUT SHIFT.
[2022-10-10 06:07] LABS: Anion Gap 4 mmol/L (6-16); Blood Urea Nitrogen 19 mg/dL (8-24); Bun/Creatinine Ratio 24.7 (12.0-20.0); CO2, Blood 31 mmol/L (21-32); Calcium, Blood 8.6 mg/dL (8.5-10.1); Chloride, Blood 103 mmol/L (98-108); Creatinine, Blood 0.77 mg/dL (0.60-1.20); Glomerular Filtration Rate 105 (60-); Glucose, Blood 240 mg/dL (70-99); Phosphorus, Blood 1.8 mg/dL (2.5-4.9); Potassium, Blood 3.9 mmol/L (3.5-5.5); Sodium, Blood 138 mmol/L (136-145)
--- NOTE | 2022-10-10 12:51 | NUR ---
GETACHEW HAS BEEN INCREDIBLY RESTLESS TODAY, IMPULSIVE WELL. HE HAS BEEN UP AND DOWN FROM THE BED TO THE CHAIR TO BED TO CHAIR, MULTIPLE TIMES. HE IS UNSTEADY ON HIS FEET AND HE HAS BEEN ASKED TO USE THE CALL LIGHT. HE HAS VOIDED ON THE FLOOR AND ON HIMSELF SEVERAL TIMES AND BEEN CLEANED UP AND CHANGED. WAS IN AND THE DRESSING WAS CHANGED, HE ASKED THAT WE DO BID DRESSING CHANGES, USING THE TAI WRAP TO HELP WITH COMPRESSION. HE HAS BEEN PICKING AT A SCAB ON HIS LEG CAUSING IT TO BLEED, THEREFORE IT HAS BEEN COVERED WITH A DRESSING.
[2022-10-10 13:23] LABS: Source, Urine Foley catheter
[2022-10-10 13:28] LABS: Appearance, Urine Clear (Clear); Bilirubin, Urine Neg (Neg); Blood, Urine 2+ (Neg); Glucose Qualitative, Urine 4+ (Neg); Ketones, Urine Neg (Neg); Leukocyte Esterase, Urine 1+ (Neg); Nitrite, Urine Neg (Neg); Protein, Urine Neg (Neg); Specific Gravity, Urine 1.005 (1.003-1.022); Urobilinogen, Urine NORM (Normal)
[2022-10-10 13:39] LABS: Color, Urine Pale Yellow (P-Yellow)
[2022-10-10 13:40] LABS: Bacteria Rare /hpf; Squamous Epithelial Cells Not Seen /hpf (Few); White Blood Cells, Urine 0-2 /hpf (0-5)
--- NOTE | 2022-10-10 15:44 | NUR ---
GETACHEW CONTINUED TO BE UP AND DOWN REPEATEDLY UNABLE TO LAND FOR LONGER THAN 5 MINUTES. HE WAS ONLY URINATING 100ML OR LESS EACH TIME, CATHETER WAS REPLACED FOR RETENTION AND PT SAFETY. HE IS CURRENTLY ASLEEP. VITALS STABLE.
--- NOTE | 2022-10-10 16:55 | NUR ---
GETACHEW WOKE FROM HIS NAP AND HIS BP WAS ELEVATED 185/85, MEDICATED WITH HYDRALAZINE PER ORDERS. HE IS VISIBLY SLEEPY, ATTEMPTING TO FALL ASLEEP SITTING UP, HE HAS MOVED FROM CHAIR TO BED TO CHAIR. HE IS ANXIOUS TO MOVE TO A NEW FLOOR. HEART RATE 90'S, SATS >95% ON RA. STRENGTH IMPROVING, STILL UNSTEADY AT TIMES. BENITEZ WITH GOOD URINE OUTPUT, CLEAR YELLOW. EATS WELL, DENIES ANY N/V. LARGE BM THIS AFTERNOON.
--- NOTE | 2022-10-10 17:55 | NUR ---
GETACHEW TRANSFERRED VIA WHEELCHAIR TO PCU ROOM 9 TO CARE OF BRANDY CARDONA. HE WAS "READY" TO GO. QUESTIONS ANSWERED.
--- NOTE | 2022-10-10 19:10 | NUR ---
PCU ARRIVAL / END OF SHIFT PT BROUGHT TO PCU-09 BY WHEELCHAIR FROM ICU @ APPROX 1800. PT A&O X3, ABLE TO STAND & WEAKLY AMBULATE FROM WHEELCHAIR TO PCU BED. PT RESTLESS, UNABLE TO REMAIN LAYING DOWN OR SEATED, GETTING UP & DOWN FREQUENTLY. PT BP ELEVATED, MEDICATED W/ PRN IV LABETALOL PER EMAR. MONITOR SHOWING SR, HR 80s. SPO2 > 92% ON RA. BIPAP ON STANDBY @ BEDSIDE. PT C/O 8/10 R HAND PAIN. PT MEDICATED W/ PRN IV DILAUDID PER EMAR W/ PT DENIAL OF IMPROVEMENT IN PAIN. REPORT GIVEN TO ACCEPTING HEALTHCARE PROF RN.
[2022-10-11 04:22] LABS: Hematocrit 28.7 % (37.0-53.0); Hemoglobin 9.2 g/dL (13.5-17.5)
[2022-10-11 04:45] LABS: Albumin, Blood 2.9 g/dL (3.4-5.0); Anion Gap 4 mmol/L (6-16); Blood Urea Nitrogen 13 mg/dL (8-24); Bun/Creatinine Ratio 17.6 (12.0-20.0); CO2, Blood 32 mmol/L (21-32); Calcium, Blood 8.8 mg/dL (8.5-10.1); Chloride, Blood 99 mmol/L (98-108); Creatinine, Blood 0.74 mg/dL (0.60-1.20); Glomerular Filtration Rate 106 (60-); Glucose, Blood 176 mg/dL (70-99); Magnesium, Blood 1.6 mg/dL (1.6-2.4); Phosphorus, Blood 3.6 mg/dL (2.5-4.9); Potassium, Blood 3.3 mmol/L (3.5-5.5); Sodium, Blood 135 mmol/L (136-145)
--- NOTE | 2022-10-11 05:11 | NUR ---
SHIFT SUMMARY: Patient has been very restless and anxious tonight. He moves between the bed and chair frequently without calling for help, bed and chair alarms set at all times and patient in line of sight from nursing station. He is unsteady on his feet and requires assistance to ensure lines are untangled with ambulation. Hypertensive at times, medicated once with hydralazine. Medicated with ativan PRN for anxiety, dilaudid for pain, and seroquel for agitation. Remains on room air, sats above 92%, some expiratory wheezes and dyspnea with exertion noted.
[2022-10-11 08:45] LABS: Vancomycin, Trough 15.5 ug/mL (5.0-10.0)
--- NOTE | 2022-10-11 17:01 | NUR ---
SHIFT SUMMARY PT A/O X3-4 WHEN AWAKE, DROWSY FOR MOST OF SHIFT. PT APPEARS TO IGNORE MOST OF RN ORIENTATION QUESTIONS. PT MUMBLES WHEN SPEAKING BUT IS ABLE TO WXPRESS NEEDS. PT MORE ALERT WHEN SON CAME TO VISIT TOWARDS END OF SHIFT, NO DIFFICULTY SPEAKING TO SON. PT BP'S ELEVATED, DR AWARE. OTHER VSS THROUGHOUT SHIFT WITH 02 SATS IN THE 90'S ON RA. PT WORKED WITH PT/OT, TOLERATED WELL. PT WALKED PCU LOOP TWICE WITH THIS RN, TOLERATED WELL. BENITEZ IN PLACE DRAINING TO GRAVITY, YELLOW URINE. PT NOT USING CALL LIGHT FOR ANY ASSISTANCE, SETS OFF BED AND CHAIR ALARMS FREQUENTLY. PT VERY RESTLESS THROUGHOUT SHIFT SWITCHING BACK AND FORTH BETWEEN BED AND RECLINER.
--- NOTE | 2022-10-11 21:18 | NUR ---
PT UPDATE PT WALKS INDEPENDENTLY WITH WALKER/GAIT BELT AROUND UNIT X2 THIS RN STANDBY ASSIST AND E BUSINESS MANAGER ANGIE FOLLOWING WITH WHEELCHAIR. SOME DYSPNEA, OTHERWISE PT DOES WELL.
[2022-10-12 03:34] LABS: BASOPHILS ABSOLUTE AUTO 0.03 K/mm3 (0.00-0.23); BASOPHILS PERCENT AUTO 0 % (0-2); EOSINOPHILS ABSOLUTE AUTO 0.43 K/mm3 (0.00-0.68); EOSINOPHILS PERCENT AUTO 6 % (0-6); Hemoglobin 9.5 g/dL (13.5-17.5); IMMATURE GRAN ABSOLUTE AUTO 0.02 K/mm3 (0.00-0.10); IMMATURE GRAN PERCENT AUTO 0 % (0-1); LYMPHOCYTES ABSOLUTE AUTO 1.15 K/mm3 (0.84-5.20); LYMPHOCYTES PERCENT AUTO 16 % (21-46); MONOCYTES ABSOLUTE AUTO 0.75 K/mm3 (0.16-1.47); MONOCYTES PERCENT AUTO 10 % (4-13); Mean Corpuscular HGB Conc 31.7 g/dL (31.5-36.5); Mean Corpuscular Volume 79 fL (80-100); Mean Platelet Volume 11.8 fL (9.1-12.4); NEUTROPHILS ABSOLUTE AUTO 5.03 K/mm3 (1.96-9.15); NEUTROPHILS PERCENT AUTO 68 % (41-73); Platelet Count 250 K/mm3 (150-400); RDW Coefficient Variation 15.2 % (11.7-14.2); RDW Standard Deviation 43.3 fL (35.1-46.3); White Blood Cell Count 7.41 K/mm3 (4.00-11.30)
[2022-10-12 03:52] LABS: Albumin, Blood 2.9 g/dL (3.4-5.0); Anion Gap 5 mmol/L (6-16); Blood Urea Nitrogen 14 mg/dL (8-24); Bun/Creatinine Ratio 18.1 (12.0-20.0); CO2, Blood 34 mmol/L (21-32); Chloride, Blood 97 mmol/L (98-108); Creatinine, Blood 0.77 mg/dL (0.60-1.20); Glomerular Filtration Rate 105 (60-); Glucose, Blood 214 mg/dL (70-99); Magnesium, Blood 1.6 mg/dL (1.6-2.4); Phosphorus, Blood 3.6 mg/dL (2.5-4.9); Potassium, Blood 3.5 mmol/L (3.5-5.5); Sodium, Blood 136 mmol/L (136-145)
--- NOTE | 2022-10-12 06:03 | NUR ---
PT AOX3 T/O SHIFT, FORGETFUL T/O NIGHT AND IRRITABLE/ANXIOUS AT TIMES, REDIRECTABLE, RESTLESS, CONSTANTLY MOVING BACK AND FORTH BETWEEN BED AND CHAIR. UNSTEADY ON FEET AND NEEDING ASSISTANCE BUT STANDS UP AND BEGINS TRANSFERRING DESPITE INSTRUCTIONS BY THIS RN AND CORDAGE SALES REPRESENTATIVE AND EDUCATED ON SAFETY RISKS. PT GIVEN SHOWER THIS SHIFT, TOLERATED WELL BUT NEEDED ASSISTANCE D/T MULTIPLE LINES, CORDS. BENITEZ DRAINING PALE YELLOW URINE T/O SHIFT. PT REFUSED SCDS AFTER TRYING THEM. WOUNDS REDRESSED TWICE D/T DIFFICULTY KEEPING IN PLACE AND SHOWER. POWERGLIDE AND IV'S REDRESSED. CHANDRA RN TO BEDSIDE PER THIS RN REQUEST TO FURTHER ASSESS POWERGLIDE D/T SOME BRUISING, NO BLOOD RETURN, AND POSITIONAL. POWERGLIDE APPEARS PATENT, FLUSHES WELL FOLLOWING DRESSING.
[2022-10-12] MEDS ORDERED: ATOR80 PO ×2 (10:31)
[2022-10-12] MEDS ORDERED: FLUO10 PO ×2 (10:33)
[2022-10-12] MEDS ORDERED: SUBOXONE 8 MG-1 EACH SL ×2 (10:35)
[2022-10-12] MEDS ORDERED: POTA10T PO ×3 (10:38→11:37)
[2022-10-12] MEDS ORDERED: OMEP20ER PO ×2 (11:32)
[2022-10-12] MEDS ORDERED: SULTRIDS PO ×2 (11:34)
[2022-10-12] MEDS ORDERED: BUME2 PO ×2 (11:35)
[2022-10-12] MEDS ORDERED: INSULANI SC ×2 (11:36)
[2022-10-12] MEDS ORDERED: NIFE60ER PO ×2 (11:36)
[2022-10-12] MEDS ORDERED: Seroquel Xr50 MG PO ×2 (11:37)
[2022-10-12] MEDS ORDERED: VISBIOME 112.51 EACH PO ×2 (11:38)
--- NOTE | 2022-10-12 12:11 | NUR ---
PT DISCHARGE TO HOME WITH DISCHARGE ORDERS AND HOME HEALTH WELL. HOME MEDS RECONCILED FROM [facility] SENT TO [facility]. ELI JENKINS'Damien PT WAS ABLE TO VOID BEFORE LEAVING. ALL DISCHARGE INSTRUCTIONS AND NEW MEDICATIONS DISCLOSED WITH THE PT. ALL BELONGINGS SENT WITH THE PT, [facility] CALLED FOR TRANSPO, PT ACCOMPANIED VIA WHEELCHAIR FOR DISCHAGRE
[2022-10-14 15:09] LABS: M-SPIKE, % Not Observed % (Not Observed); PROTEIN,TOTAL,URINE 10.3 mg/dL (Not Estab.)
== END 2022-10-12 12:06 | disposition home or self-care (01) | DRG 579 ==
LOC: ER 09:09 → PCU 09:10 → ICUE 10-06 12:02 → PCU 10-06 12:02 → ICUE 10-06 17:25 → PCU 10-10 17:51
PROVIDERS: Family Medicine; Internal Medicine Nephrology; Nurse Practitioner Acute Care; Orthopaedic Surgery; Student in an Organized Health Care Education/Training Program; ADMIT Internal Medicine
PROC: 4A133R1 Monitoring of Arterial Saturation, Peripheral, Percutaneous Approach (ICD-10-PCS; 2022-10-06)
PROC: 5A09357 Assistance with Respiratory Ventilation, Less than 24 Consecutive Hours, Continuous Positive Airway Pressure (ICD-10-PCS; 2022-10-06)
PROC: 3E033XZ Introduction of Vasopressor into Peripheral Vein, Percutaneous Approach (ICD-10-PCS; 2022-10-07)
PROC: 0JBJ0ZZ Excision of Right Hand Subcutaneous Tissue and Fascia, Open Approach (ICD-10-PCS; principal; 2022-10-08 12:30)
DX: L02.511 Cutaneous abscess of right hand (principal); G93.41 Metabolic encephalopathy; N18.6 End stage renal disease; J96.22 Acute and chronic respiratory failure with hypercapnia; L03.113 Cellulitis of right upper limb; E87.1 Hypo-osmolality and hyponatremia; E87.20 Acidosis, unspecified; E66.2 Morbid (severe) obesity with alveolar hypoventilation; N17.9 Acute kidney failure, unspecified; I12.0 Hypertensive chronic kidney disease with stage 5 chronic kidney disease or end stage renal disease; Z68.42 Body mass index [BMI] 45.0-49.9, adult; E87.5 Hyperkalemia; Z59.00 Homelessness unspecified; F15.10 Other stimulant abuse, uncomplicated; E11.22 Type 2 diabetes mellitus with diabetic chronic kidney disease; K21.9 Gastro-esophageal reflux disease without esophagitis; I95.9 Hypotension, unspecified; D63.1 Anemia in chronic kidney disease; F41.9 Anxiety disorder, unspecified; N40.0 Benign prostatic hyperplasia without lower urinary tract symptoms; E87.70 Fluid overload, unspecified; Z28.21 Immunization not carried out because of patient refusal; Z98.890 Other specified postprocedural states; Z91.199 Patient's noncompliance with other medical treatment and regimen due to unspecified reason; Z79.2 Long term (current) use of antibiotics; Z79.899 Other long term (current) drug therapy
CPT/HCPCS: 36415; 36600; 73200; 76770; 76882; 80048; 80053; 80069; 80202; 81001; 81050; 82248; 82533; 82550; 82570; 82803; 82947; 83516; 83520; 83605; 83735; 84100; 84132; 84156; 84166; 84300; 84443; 84540; 84550; 85014; 85018; 85025; 85651; 86037; 86038; 86140; 86334; 86335; 87040; 87071; 87075; 87086; 87205; 93005; 93010; 94660; 94762; 96365; 96366; 96367; 96372; 96375; 97110; 97116; 97162; 97166; 97530; 97535; 99285-25; A9270; C1751; G0378; J0360; J0610; J0692; J0881; J1170; J1630; J1644; J1650; J1815; J2060; J2250; J2370; J2405; J2543; J2704; J3010; J3370; J3475; J3480; J3490; J7030; J7050; J7060; J7070; J7799; P9047

== ENCOUNTER 2022-10-16 00:28 | Day surgery (SDC) | payer OTHER ==
[~2022-10-16 00:28] MED LIST changes: +ATOR80 PO; +BUME2 PO; +FLUO10 PO; +INSULANI SC; +NIFE60ER PO; +POTA10T PO; +SUBOXONE 8 MG-1 EACH SL; +SULTRIDS PO; +VISBIOME 112.51 EACH PO
== END 2022-10-16 22:51 | disposition home or self-care (01) ==
LOC: WOUND 00:28
DX: T81.41XA Infection following a procedure, superficial incisional surgical site, initial encounter (principal); L02.414 Cutaneous abscess of left upper limb; L02.413 Cutaneous abscess of right upper limb; E11.9 Type 2 diabetes mellitus without complications
CPT/HCPCS: A9270; G0463

== ENCOUNTER 2022-10-16 19:19 | Inpatient (IN) | payer OTHER ==
[~2022-10-16] VITALS: Ht 182.9 cm; Wt 162.8 kg
[2022-10-16 19:48] LABS: BASOPHILS ABSOLUTE AUTO 0.02 K/mm3 (0.00-0.23); BASOPHILS PERCENT AUTO 0 % (0-2); EOSINOPHILS PERCENT AUTO 3 % (0-6); Hematocrit 27.6 % (37.0-53.0); Hemoglobin 8.5 g/dL (13.5-17.5); IMMATURE GRAN ABSOLUTE AUTO 0.06 K/mm3 (0.00-0.10); IMMATURE GRAN PERCENT AUTO 1 % (0-1); LYMPHOCYTES PERCENT AUTO 16 % (21-46); MONOCYTES ABSOLUTE AUTO 1.08 K/mm3 (0.16-1.47); MONOCYTES PERCENT AUTO 12 % (4-13); Mean Corpuscular HGB 24.7 pg (26.0-34.0); Mean Corpuscular HGB Conc 30.8 g/dL (31.5-36.5); Mean Corpuscular Volume 80 fL (80-100); Mean Platelet Volume 12.5 fL (9.1-12.4); NEUTROPHILS ABSOLUTE AUTO 6.07 K/mm3 (1.96-9.15); NEUTROPHILS PERCENT AUTO 68 % (41-73); Platelet Count 213 K/mm3 (150-400); RDW Coefficient Variation 15.9 % (11.7-14.2); RDW Standard Deviation 45.7 fL (35.1-46.3); Red Blood Cell Count 3.44 M/mm3 (4.30-5.90); White Blood Cell Count 8.93 K/mm3 (4.00-11.30)
[2022-10-16 20:04] LABS: Ethanol (Alcohol), Blood, Med <3 mg/dL; Magnesium, Blood 1.9 mg/dL (1.6-2.4)
[2022-10-16 20:07] LABS: Alanine Aminotransfer (ALT/SGP 17 U/L (12-78); Albumin, Blood 2.9 g/dL (3.4-5.0); Albumin/Globulin Ratio 0.8 (0.8-1.8); Alk Phos 80 U/L (50-136); Anion Gap 7 mmol/L (6-16); Aspartate Aminotrans (AST/SGOT 26 U/L (12-37); Bilirubin, Total 0.2 mg/dL (0.1-1.0); Blood Urea Nitrogen 64 mg/dL (8-24); Bun/Creatinine Ratio 12.7 (12.0-20.0); CO2, Blood 26 mmol/L (21-32); Calcium, Blood 8.9 mg/dL (8.5-10.1); Chloride, Blood 98 mmol/L (98-108); Creatinine, Blood 5.02 mg/dL (0.60-1.20); Globulin, Blood 3.6 g/dL (2.2-4.0); Glomerular Filtration Rate 13 (60-); Glucose, Blood 59 mg/dL (70-99); Potassium, Blood 7.1 mmol/L (3.5-5.5); Sodium, Blood 131 mmol/L (136-145); Total Protein, Blood 6.5 g/dL (6.4-8.2)
[2022-10-16 23:06] LABS: Bun/Creatinine Ratio 13.2 (12.0-20.0); Creatinine, Blood 4.99 mg/dL (0.60-1.20)
[2022-10-17 01:05] LABS: Albumin, Blood 2.7 g/dL (3.4-5.0); Anion Gap 5 mmol/L (6-16); Blood Urea Nitrogen 66 mg/dL (8-24); Bun/Creatinine Ratio 13.1 (12.0-20.0); CO2, Blood 24 mmol/L (21-32); Calcium, Blood 8.8 mg/dL (8.5-10.1); Chloride, Blood 100 mmol/L (98-108); Creatinine, Blood 5.02 mg/dL (0.60-1.20); Glomerular Filtration Rate 13 (60-); Glucose, Blood 111 mg/dL (70-99); Phosphorus, Blood 7.3 mg/dL (2.5-4.9); Potassium, Blood 7.3 mmol/L (3.5-5.5); Sodium, Blood 129 mmol/L (136-145)
[2022-10-17 03:19] LABS: Base Excess Venous -2.6 mmol/L; Bicarbonate Venous 22.4 mmol/L (24.0-30.0); PCO2 Venous 42.3 mmHg (38-42); pH Blood Venous 7.35 (7.34-7.37)
[2022-10-17 04:06] LABS: Hemoglobin 8.1 g/dL (13.5-17.5); Mean Corpuscular HGB 24.8 pg (26.0-34.0); Mean Corpuscular HGB Conc 31.2 g/dL (31.5-36.5); Mean Corpuscular Volume 80 fL (80-100); Mean Platelet Volume 12.2 fL (9.1-12.4); NRBC ABSOLUTE 0.02 K/mm3 (0.00-0.02); NRBC Auto 0.3 /100 WBC (0.0-0.2); Platelet Count 180 K/mm3 (150-400); RDW Coefficient Variation 15.9 % (11.7-14.2); RDW Standard Deviation 45.9 fL (35.1-46.3); Red Blood Cell Count 3.27 M/mm3 (4.30-5.90); White Blood Cell Count 7.44 K/mm3 (4.00-11.30)
--- NOTE | 2022-10-17 09:23 | NUR ---
Assumed care at approximately 0700. Report received from nightshift RN. Pt in bed, sedated on precedex at 0.5 mcg/kg/hr. On BIPAP, , 40%. Pt VS stable, will continue to monitor.
[2022-10-17 10:22] LABS: PO2 Arterial 88.5 mmHg (80-100); pH Blood Arterial 7.28 (7.35-7.45)
[2022-10-17 12:19] LABS: Albumin, Blood 2.8 g/dL (3.4-5.0); Anion Gap 11 mmol/L (6-16); Blood Urea Nitrogen 68 mg/dL (8-24); Bun/Creatinine Ratio 12.5 (12.0-20.0); CO2, Blood 25 mmol/L (21-32); Calcium, Blood 8.8 mg/dL (8.5-10.1); Chloride, Blood 97 mmol/L (98-108); Creatinine, Blood 5.43 mg/dL (0.60-1.20); Glomerular Filtration Rate 12 (60-); Magnesium, Blood 1.7 mg/dL (1.6-2.4); Sodium, Blood 133 mmol/L (136-145)
[2022-10-17 12:25] LABS: Albumin, Blood 2.8 g/dL (3.4-5.0); Anion Gap 11 mmol/L (6-16); Blood Urea Nitrogen 72 mg/dL (8-24); Bun/Creatinine Ratio 12.7 (12.0-20.0); CO2, Blood 24 mmol/L (21-32); Calcium, Blood 8.6 mg/dL (8.5-10.1); Chloride, Blood 97 mmol/L (98-108); Creatinine, Blood 5.65 mg/dL (0.60-1.20); Glomerular Filtration Rate 11 (60-); Glucose, Blood 75 mg/dL (70-99); Sodium, Blood 132 mmol/L (136-145)
[2022-10-17 12:37] LABS: Glucose, Blood 41 mg/dL (70-99); Phosphorus, Blood 8.2 mg/dL (2.5-4.9)
[2022-10-17 12:40] LABS: Albumin, Blood 2.7 g/dL (3.4-5.0); Albumin/Globulin Ratio 0.8 (0.8-1.8); Bilirubin, Total 0.2 mg/dL (0.1-1.0); Bun/Creatinine Ratio 12.7 (12.0-20.0); Calcium, Blood 8.4 mg/dL (8.5-10.1); Creatinine, Blood 5.67 mg/dL (0.60-1.20); Globulin, Blood 3.6 g/dL (2.2-4.0); Total Protein, Blood 6.3 g/dL (6.4-8.2)
[2022-10-17 12:44] LABS: Potassium, Blood 7.7 mmol/L (3.5-5.5)
[2022-10-17 12:45] LABS: Phosphorus, Blood 8.3 mg/dL (2.5-4.9)
[2022-10-17 13:00] LABS: Potassium, Blood 7.8 mmol/L (3.5-5.5)
--- NOTE | 2022-10-17 14:53 | NUR ---
Dialysis catheter placement. At approximately 1400 pt placed in reverse trendelenburg for procedure. Pt medicated with ativan and fentanyl, see EMAR. Dialysis catheter place by Dr. Mars, pt tolerated procedure well. Placement verified by Dr. Mars via X-ray. Pt repositioned for comfort post-procedure
[2022-10-17 18:33] LABS: Source, Urine Clean Catch
[2022-10-17 18:39] LABS: Appearance, Urine Clear (Clear); Blood, Urine Neg (Neg); Color, Urine Yellow (P-Yellow); Glucose Qualitative, Urine 1+ (Neg); Ketones, Urine Neg (Neg); Leukocyte Esterase, Urine Neg (Neg); Nitrite, Urine Neg (Neg); Protein, Urine Neg (Neg); Specific Gravity, Urine 1.015 (1.003-1.022); Urobilinogen, Urine NORM (Normal)
--- NOTE | 2022-10-17 18:46 | NUR ---
Shift summary. Pt in bed throughout shift. Continues on BIPAP, settings unchanged. Pt received dialysis catheter today, see notes. Dialysis performed after catheter placement, 1.3 L taken off. [place] catheter placed for 24hr urine measurements/labs/monitoring. Levophed started for BP control prior to catheter placement, titrated to maintain map >65, currently infusing at 3 mcg/min. Precedex at 0.7 mcg/kg/hr, D5W at 75 ml/hr. Pt family updated at the end of shift. See assessments/notes for further details. Will continue to monitor and report off to aislinn NAVA.
[2022-10-17 18:48] LABS: Bilirubin, Urine 2+ (Neg)
[2022-10-17 18:55] LABS: U Amphetamine Screen Not Detected; U Barbituate Screen Not Detected; U Benzodiazapine Screen DETECTED; U Buprenorphine Screen DETECTED; U Cannabinoids Screen Not Detected; U Cocaine Screen Not Detected; U Methadone Screen Not Detected; U Methamphetamine Screen Not Detected; U Opiates Screen Not Detected; U Oxycodone Screen Not Detected; U Phencyclidine Screen Not Detected; U Propoxyphene Screen Not Detected
[2022-10-18 03:41] LABS: BASOPHILS ABSOLUTE AUTO 0.03 K/mm3 (0.00-0.23); BASOPHILS PERCENT AUTO 1 % (0-2); EOSINOPHILS ABSOLUTE AUTO 0.17 K/mm3 (0.00-0.68); EOSINOPHILS PERCENT AUTO 3 % (0-6); Hematocrit 27.6 % (37.0-53.0); Hemoglobin 8.4 g/dL (13.5-17.5); IMMATURE GRAN ABSOLUTE AUTO 0.03 K/mm3 (0.00-0.10); IMMATURE GRAN PERCENT AUTO 1 % (0-1); LYMPHOCYTES ABSOLUTE AUTO 1.54 K/mm3 (0.84-5.20); LYMPHOCYTES PERCENT AUTO 23 % (21-46); MONOCYTES ABSOLUTE AUTO 0.96 K/mm3 (0.16-1.47); MONOCYTES PERCENT AUTO 15 % (4-13); Mean Corpuscular HGB 24.5 pg (26.0-34.0); Mean Corpuscular HGB Conc 30.4 g/dL (31.5-36.5); Mean Corpuscular Volume 81 fL (80-100); NEUTROPHILS ABSOLUTE AUTO 3.88 K/mm3 (1.96-9.15); NEUTROPHILS PERCENT AUTO 59 % (41-73); Platelet Count 154 K/mm3 (150-400); RDW Coefficient Variation 15.9 % (11.7-14.2); RDW Standard Deviation 46.5 fL (35.1-46.3); Red Blood Cell Count 3.43 M/mm3 (4.30-5.90); White Blood Cell Count 6.61 K/mm3 (4.00-11.30)
[2022-10-18 03:57] LABS: Mean Platelet Volume 12.9 fL (9.1-12.4)
[2022-10-18 04:10] LABS: Magnesium, Blood 2.1 mg/dL (1.6-2.4)
[2022-10-18 04:14] LABS: Albumin, Blood 2.8 g/dL (3.4-5.0); Anion Gap 3 mmol/L (6-16); Blood Urea Nitrogen 57 mg/dL (8-24); Bun/Creatinine Ratio 12.1 (12.0-20.0); CO2, Blood 31 mmol/L (21-32); CPK Creatine Kinase 129 U/L (39-308); Calcium, Blood 8.5 mg/dL (8.5-10.1); Chloride, Blood 97 mmol/L (98-108); Creatinine, Blood 4.72 mg/dL (0.60-1.20); Glomerular Filtration Rate 14 (60-); Glucose, Blood 79 mg/dL (70-99); Phosphorus, Blood 6.2 mg/dL (2.5-4.9); Sodium, Blood 131 mmol/L (136-145)
[2022-10-18 05:47] LABS: Potassium, Blood 5.8 mmol/L (3.5-5.5)
--- NOTE | 2022-10-18 10:00 | NUR ---
ASSUMED CARE NOTE: ASSUMED CARE OF PT AT 0700. PT IS ALERT AND ORIENTED TO SELF. PT IS ABLE TO FOLLOW SIMPLE COMMANDS. UNABLE TO COMMUNICATE NEEDS. PT YELLING, PULLING ON LINES/RESTRAINTS AND ATTEMPTING TO GET OUT OF BED. PRECEDEX AT 1.4MCG/KG/HR. LEVOPHED ON STAND-BY. PT IN SR TO SB, HR BETWEEN 50-60'S. PT ON 6L OF OXYGEN VIA HFNC, SPO2 ABOVE 90% ORAL CARE GIVEN. RR BETWEEEN 14-20. WILL CONTINUE WITH PLAN OF CARE.
--- NOTE | 2022-10-18 17:51 | NUR ---
SHIFT SUMMARYL: PT CONTINUES TO BE CONFUSED. PRECEDEX TITRATED DOWN TO 0.8MCG/KG/HR, PRN ATIVAN GIVEN TWICE FOR ANXIETY AND AGITATION WITH GOOD EFFECT. PT IS ABLE TO FOLLOW SIMPLE COMMANDS WHEN COOPERATIVE WITH CARE. PT REMAINS ON 6L OF 02 VIA HFNC TO MAINTAIN SPO2 ABOVE 90% PT BECAME COMBATIVE WHEN BIPAP WAS ATTEMPTED THIS MORINING. ORAL CARE PROVIDED Q4HRS. PT HAS BEEN IN SB WITH HR 50-60'S, BP STABLE. PT HAS REMAINED OFF LEVOPHED SINCE APPROX 1000. BENITEZ PATENT, URINE OUTPUT IMPROVING. PT SWITCH OVER TO D10 THIS AM WITH RATE AT 75ML/HR, BLOOD GLUCOSE STABLE. DIALYSIS TREATMENT IN PROGRESS.
[2022-10-18 18:06] LABS: Source, Urine Foley catheter
[2022-10-18 18:12] LABS: Blood, Urine 3+ (Neg); Color, Urine Yellow (P-Yellow); Glucose Qualitative, Urine 2+ (Neg); Ketones, Urine Neg (Neg); Leukocyte Esterase, Urine Neg (Neg); Nitrite, Urine Neg (Neg); Protein, Urine 1+ (Neg); Urobilinogen, Urine NORM (Normal)
[2022-10-18 18:19] LABS: Bilirubin, Urine 1+ (Neg)
[2022-10-18 18:21] LABS: Appearance, Urine Hazy (Clear)
[2022-10-18 18:22] LABS: Hyaline Casts 25-50 /lpf (0-2)
[2022-10-18 18:24] LABS: Renal Epithelial Rare /hpf (0-Rare); Squamous Epithelial Cells Rare /hpf (Few); White Blood Cells, Urine 0-2 /hpf (0-5)
[2022-10-18 18:25] LABS: Bacteria Mod /hpf
[2022-10-18 18:51] LABS: Protein, Urine Quantitative 36.7 mg/dL (0.0-11.9)
--- NOTE | 2022-10-18 19:15 | NUR ---
ASSUMED CARE OF PT @1900 FROM RENA NAVA. DIALYSIS TEAM BEDSIDE. PRECEDEX 0.8MCG/KG/HR. PT RESTING QUIETLY IN BED. O2 6L VIA NC, RR 14, SPO2 >94%. CONTINUOUS CARDIAC MONITORING. HR 50'S, SBP 150'S. LEVOPHED ON SB. BENITEZ CATH IN PLACE. DIALYSIS CATH IN PLACE. ALICIA ROJAS. BSWR.
--- NOTE | 2022-10-18 22:22 | NUR ---
JANEE PT'S SON, CLARA, GAVE UPDATE ON PT AND PLAN FOR THE EVENING. CLARA WILL COME IN EARLY TOMORROW TO VISIT.
[2022-10-19 03:50] LABS: Hematocrit 25.8 % (37.0-53.0); Hemoglobin 7.9 g/dL (13.5-17.5)
[2022-10-19 04:03] LABS: Albumin, Blood 2.6 g/dL (3.4-5.0); Anion Gap 5 mmol/L (6-16); Blood Urea Nitrogen 42 mg/dL (8-24); Bun/Creatinine Ratio 13.5 (12.0-20.0); CO2, Blood 31 mmol/L (21-32); Calcium, Blood 7.8 mg/dL (8.5-10.1); Chloride, Blood 95 mmol/L (98-108); Creatinine, Blood 3.11 mg/dL (0.60-1.20); Glomerular Filtration Rate 23 (60-); Glucose, Blood 144 mg/dL (70-99); Magnesium, Blood 2.2 mg/dL (1.6-2.4); Phosphorus, Blood 4.8 mg/dL (2.5-4.9); Potassium, Blood 4.7 mmol/L (3.5-5.5); Sodium, Blood 131 mmol/L (136-145)
--- NOTE | 2022-10-19 05:57 | NUR ---
SUMMARY: NO ACUTE EVENTS OVERNIGHT. PT REMAINED SEDATED W/PRECEDEX CURRENTLY AT 0.5MCG/KG/HR AND PRN ATIVAN FOR PERIODS OF ANXIETY. PT IS DIFFICULT TO UNDERSTAND BUT WAS ABLE TO MAKE MOST NEEDS KNOWN AND WAS REDIRECTABLE. PT IS ORIENTED TO SELF AND REPEATEDLY ASKS IF HE IS STILL IN THE HOSPITAL. 6L O2 VIA NC, RR <20, SPO2 >94%. CONTINUOUS CARDIAC MONITORING. HR 50'S, SBP STABLE, MAP >65. NO BM THIS SHIFT. BENITEZ IN PLACE AND DRAINING YELLOW URINE TO GRAVITY. SKIN ASSESSMENT REMAINS UNCHANGED. IV ACCESS: DIALYSIS CATH REDD, PG CRYSTAL.
--- NOTE | 2022-10-19 09:30 | NUR ---
ASSUMED CARE OF PT @ 0700. BEDSIDE REPORT FROM BRANDY GARCIA. PT ALERT TO SELF, PULLING ON RESTRAINTS, MOVING FREQUENTLY IN BED. ON PRECEDEX GTT, TITRATING AT THIS TIME. ON 6LPM O2 VIA NC, SATS >90%. TRIALYSIS CATH PATENT, WILL RECEIVE DIALYSIS TODAY. LEVOPHED REMAINS OFF. BENITEZ DRAINING CASANDRA URINE. NO BM. WILL ATTEMPT TO DC PRECEDEX TODAY.
--- NOTE | 2022-10-19 18:39 | NUR ---
SHIFT SUMMARY PT ALERT TO PERSON AND YEAR, CONTINUES TO HAVE MOMENTS OF CONFUSION. AFTER DIALYSIS PT TAKEN OFF SEDATION, RESTRAINTS DC'D. PT REQUESTED TO SIT ON THE EDGE OF THE BED, SAT ON EDGE FOR ABOUT 5 MINS THEN BACK TO HIS SIDE. INITIALLY PT REDIRECTABLE OFF SEDATION BUT @ 1730 PT BECOME MORE AGITATED, TRYING TO PULL DIALYSIS CATH AND ATTEMPTING TO GET OUT OF BED, NOT REDIRECTABLE. 1MG ATIVAN GIVEN, PRECEDEX BACK ON, TITRATING AT THIS TIME. BENITEZ CATH PATENT, DRAINING YELLOW URINE, 320ML OUT THIS SHIFT. BP STABLE, SINUS MANUEL ON THE MONITOR. NO OTHER ACUTE CHANGES TODAY.
--- NOTE | 2022-10-19 19:15 | NUR ---
ASSUMED CARE OF PT @1900 FROM LEN NAVA. BEDSIDE REPORT. PT IS SEDATED AND RESTING QUIETLY. PRECEDEX 0.7MCG/KG/HR. 6L O2 VIA HFNC. RR 12, SPO2 >94%. CONTINUOUS CARDIAC MONITORING. HR 50'S, SBP STABLE, MAP >65. DIALYSIS CATH RIJ PATENT, PG LUP PATENT AND INFUSING D10 @75MLS/HR AND PRECEDEX. BENITEZ CATH DRAINING TO GRAVITY.
--- NOTE | 2022-10-19 23:00 | NUR ---
PHONE CALL TO DR. CHAPMAN RE: PT AGGITATION AND ANXIETY. PT STILL EXTREMETLY AGGITATED W/PRECEDEX, ATIVAN PRN, REDIRECTION, AND DECREASED STIMULI. PT TRYING TO GET OUT OF BED DESPITE BEING IN RESTRAINTS. KICKING BED UNTIL THE SIDE RAIL BROKE. PULLING AT LINES AND CORDS. ORDERS FOR ZYPREXA ONE TIME AND HALDOL ONE TIME.
--- NOTE | 2022-10-20 02:00 | NUR ---
UPDATE PT REMAINS AGGITATED AND KICKING AT BED RAILS AND THRASHING DESPITE ALL ALTERNATIVES TO RESTRAINTS BEING TRIED. BILATERAL LOWER RESTRAINTS APPLIED.
[2022-10-20 04:17] LABS: Hematocrit 26.4 % (37.0-53.0); Hemoglobin 7.9 g/dL (13.5-17.5)
[2022-10-20 04:38] LABS: Albumin, Blood 3.2 g/dL (3.4-5.0); Anion Gap 3 mmol/L (6-16); Blood Urea Nitrogen 27 mg/dL (8-24); Bun/Creatinine Ratio 14.1 (12.0-20.0); CO2, Blood 31 mmol/L (21-32); Calcium, Blood 7.8 mg/dL (8.5-10.1); Chloride, Blood 96 mmol/L (98-108); Creatinine, Blood 1.91 mg/dL (0.60-1.20); Glomerular Filtration Rate 41 (60-); Glucose, Blood 154 mg/dL (70-99); Magnesium, Blood 1.9 mg/dL (1.6-2.4); Phosphorus, Blood 3.3 mg/dL (2.5-4.9); Potassium, Blood 4.6 mmol/L (3.5-5.5); Sodium, Blood 130 mmol/L (136-145)
--- NOTE | 2022-10-20 06:19 | NUR ---
SUMMARY NEURO/PSYCH/MOBILITY: PT EXTREMETLY AGGITATED AND ANXIOUS THROUGHOUT SHIFT DESPITE ALL ATTEMPTS AT REDIRECTION, ORIENTING, AND DECREASED STIMULI. PRECEDEX TITRATED THROUGH SHIFT TO 1.4MCG/KG/HR. ATIVAN 1MG GIVEN Q2HR PRN. ONE TIME ZYPREXA 10MG AND HALDOL 5MG GIVEN W/LITTLE EFFECT. PT THRASHING AND KICKING BED RESULTING IN BROKEN SIDE RAIL. PT PUT IN BILATERAL LOWER RESTRAINTS. PT YELLING OUT MOST OF SHIFT BUT UNABLE TO COMMUNICATE NEEDS. PT RESPONDS TO HIS NAME BUT DOES NOT ANSWER ANY QUESTIONS. RESP: 6L O2 VIA HFNC. RR <20, SPO2 >92%. LUNG SOUNDS DIMINISHED THROUGHOUT. PT IS ABLE TO REMOVE NC ON OCCASION. CARDIAC: CONTINUOUS CARDIAC MONITORING. PT DISCONNECTED LEADS MULTIPLE TIMES THROUGHOUT SHIFT. HR 50-60'S, SBP STABLE, MAP >65. GI: NO BM THIS SHIFT. PT ASPIRATION RISK DT SEDATION AND AMS. : BENITEZ IN PLACE AND DRAINING YELLOW URINE TO GRAVITY. 1200MLS OUPUT THIS SHIFT. SKIN: INCISION ON RIGHT HAND INFLAMED AND OOZING. INCISION ON LAC AREA OF INFLAMMATION. IV ACCESS: DIALYSIS CATH REDD. ALICIA ROJAS.
[2022-10-20 09:03] LABS: Base Excess Venous 3.9 mmol/L; Bicarbonate Venous 27.2 mmol/L (24.0-30.0); PCO2 Venous 58.7 mmHg (38-42); pH Blood Venous 7.32 (7.34-7.37)
--- NOTE | 2022-10-20 11:36 | NUR ---
SHIFT ASSESSMENT ASSUMED CARE OF PT @ 0700. PT AWAKENS TO VERBAL STIMULI, MUMBLES INCOHERENTLY. IN 4 POINT SOFT RESTRAINTS DUE TO SELF ENDANGERING BEHAVIOR, VERY DIFFICULT TO REDIRECT. PT ON 6LPM O2 VIA NC, SATS >90%, ALSO BACK ON BIPAP WHILE SLEEPING. INITIALLY PT VERY AGITATED, MEDICATED WITH ATIVAN AND TITRATED PRECEDEX GTT TO MAX DOSE. CURRENTLY HAVE PT OFF PRECEDEX AND ON BIPAP, TOLERATING WELL AT THIS TIME. PT ABLE TO STATE NAME AND LOCATION, MOVING ALL EXTREMITIES, POSITIONING SELF IN POSITION OF COMFORT BUT REQUESTING SOME PAIN MEDS. CONTACTED HOSPITALIST DUE TO PT TAKING SUBOXONE AT HOME AND PT DEMONSTRATING POSSIBLE OPIATE W/D, WILL START BACK ON SUBOXONE. MEDICATIONS INFUSING VIA DIALYSIS CATH, POWERGLIDE INFILTRATED. BENITEZ CATH PATENT, DRAINING YELLOW URINE. NO BM THIS SHIFT. WILL ATTEMPT SWALLOW EVAL CHRIS.
--- NOTE | 2022-10-20 14:48 | NUR ---
UPDATE PT CLEARING THE DAY PROGRESSES. NOW ALERT TO PERSON, PLACE AND YEAR. FOLLOWING COMMANDS BUT REMAINS IMPULSIVE, CURRENTLY REDIRECTABLE. PT AMBULATED TO BEDSIDE COMMODE WITH ASSISTANCE, WAS WOBBLY. HAD LARGE BM. BEDBATH COMPLETE. PT REQUESTED CHAIR, ABLE TO STAND AND TRANSFER TO CHAIR, BUT ONLY TOLERATED FOR ABOUT 15 MINS. NOW BACK IN BED PER PATIENT REQUEST. PT REMAINS OFF OF PRECEDEX.
--- NOTE | 2022-10-20 18:26 | NUR ---
SHIFT SUMMARY PT REMAINS ALERT TO PERSON AND PLACE BUT CONTINUES TO BE VERY IMPULSIVE YET REDIRECTABLE WITH A NURSE AT BEDSIDE. PT IS NOW REQUIRING 1:1 SUPERVISION DUE TO CONTINUOUSLY PULLING ON LINES AND TRYING TO GET UP TO CHAIR AND BACK TO BED. PT REMAINS WOBBLY ON HIS FEET AND CENTRAL LINE ACCESS REQUIRING CLOSE SUPERVISION. WE ARE ATTEMPTING TO KEEP PT OFF OF PRECEDEX AND OUT OF RESTRAINTS BUT HIS IMPULSIVENESS IS REQUIRING NURSE AND MULTIMEDIA DEVELOPER TO BE AT BEDSIDE FOR MAJORITY OF THE DAY. PT ABLE TO DRINK/ TAKE MEDS NOW, NO S/S OF ASPIRATION. ON 5-6LPM O2 VIA NC. ATTEMPTING TO HAVE PT WEAR BIPAP BUT HE IS ONLY TOLERATING FOR SHORT PERIODS OF TIME, MAY HAVE TO UTILIZE PRECEDEX AND RESTRAINTS FOR COMPLIANCE.
--- NOTE | 2022-10-20 19:15 | NUR ---
ASSUMED CARE OF PT @1900 FROM LEN NAVA. BEDSIDE REPORT. REELING MACHINE OPERATOR IS BEDSIDE W/PT. PT IS ANXIOUS, IMPULSIVE, AND AGGITATED. PT IS ALERT AND ORIENTED TO SELF AND PLACE. KEEPS ASKING IF HE IS IN THE HOSPITAL STILL AND WANTS TO LEAVE AND "GO FOR A WALK." PT IS REDIRECTABLE AT PRESENT. WANTING TO GO FROM BED TO CHAIR AND BACK AGAIN CONSTANTLY. 5L 02 VIA HFNC THAT PT KEEPS REMOVING. RR 14, SPO2 >92%. CONTINOUS CARDIAC MONITORING. PT KEEPS PULLING OFF LEADS. HR 120-130'S, MAP >65. BENITEZ PATENT AND DRAINING TO GRAVITY.
--- NOTE | 2022-10-20 22:30 | NUR ---
UPDATE PT IS CONSTANTLY PULLING LEADS AND SPO2 OFF. PULLING AT IV LINE AND DIALYSIS CATH. FLUIDS DISCONNECTED AND PUT ON SB UNTIL PT IS MORE COMPLIANT.
--- NOTE | 2022-10-21 00:58 | NUR ---
PHONE CALL TO DR. CHPAMAN RE: PT AGGITATION AND ANXIETY. PT IS ATTEMPTING TO EXIT BED DESPITE SITTER AND MULTIPLE STAFF IN ROOM FOR REDIRECTION. PT PULLING ON DIALYSIS CATH AND RESPONDS AGGRESSIVELY WHEN STAFF TRIES TO REDIRECT. PULLING ON URINARY CATH TUBING AND BROKE SPO2 PROBE.
--- NOTE | 2022-10-21 02:29 | NUR ---
PT ATTEMPTING TO GET OUT OF BED, PULLING LEADS OFF, YELLING. MULTIPLE STAFF ATTEMPTS AT REDIRECTION.
[2022-10-21 03:30] LABS: Hematocrit 27.7 % (37.0-53.0); Hemoglobin 8.3 g/dL (13.5-17.5)
[2022-10-21 03:47] LABS: Albumin, Blood 3.4 g/dL (3.4-5.0); Anion Gap 5 mmol/L (6-16); Blood Urea Nitrogen 21 mg/dL (8-24); Bun/Creatinine Ratio 16.4 (12.0-20.0); CO2, Blood 30 mmol/L (21-32); Calcium, Blood 8.6 mg/dL (8.5-10.1); Chloride, Blood 99 mmol/L (98-108); Creatinine, Blood 1.28 mg/dL (0.60-1.20); Glomerular Filtration Rate 66 (60-); Glucose, Blood 229 mg/dL (70-99); Magnesium, Blood 2.1 mg/dL (1.6-2.4); Phosphorus, Blood 3.1 mg/dL (2.5-4.9); Potassium, Blood 4.6 mmol/L (3.5-5.5); Sodium, Blood 134 mmol/L (136-145)
--- NOTE | 2022-10-21 04:35 | NUR ---
UPDATE SW DR CHAPMAN RE: CBG CONSISTENTLY OVER 200. D10 HAS BEEN ON STANDBY DT PT PULLING AT LINE. PER DR CHAPMAN HOLD D10 FOR NOW.
--- NOTE | 2022-10-21 05:25 | NUR ---
UPDATE RESTRAINTS REMOVED TEMPORARILY. PT IMMEDIATELY PULLED AND REMOVED LEADS AND WAS REACHING TO PULL OFF HIFLOW WHILE TRYING TO SIT UP OUT OF BED. BECAME ARGUMENTATIVE W/STAFF WHEN TRIED TO VERBALLY REDIRECT. RESTRAINTS ON.
--- NOTE | 2022-10-21 06:09 | NUR ---
SUMMARY NEURO/PSYCH/MOBILITY: PT IS A&O X4. ANSWERS QUESTIONS APPROPRIATELY BUT CONTINUES TO BE VERY IMPULSIVE, AGGITATED, AND ANXIOUS. PROGRESSIVELY LESS REDIRECTABLE DESPITE MULTIPLE STAFF ATTEMPTS AND A 1:1 SITTER. CONTINUOUSLY PULLING AND REMOVING LINES WELL GETTING OUT OF BED. BECOMES COMBATIVE AT TIMES W/REDIRECTION. MEDICATED PER EMAR BUT PATIENT REMAINED IMPULSIVE REQUIRING MULTIPLE STAFF IN THE ROOM DURING MAJORITY OF SHIFT. RESTRAINTS APPLIED DT INABILTY TO REDIRECT, PULLING AT AND REMOVING LINES, AND SAFETY OF PT AND STAFF. PT DENIES PAIN. RESP: PT REMOVED BIPAP AND REFUSED TO WEAR IT DURING THE NIGHT. PT REMOVED NC MULTIPLE TIMES DURING SHIFT CAUSING SPO2 TO DROP INTO THE 80'S. PT EVENTUALLY PUT ON HI-FLOW 40L/MIN @35%. RR <20, SPO2 >92%. : BENITEZ CATH DRAINING CLEAR YELLOW URINE TO GRAVITY. 2000MLS OUTPUT THIS SHIFT. CARDIAC, GI, SKIN ASSESSMENTS REMAIN UNCHANGED. DIALYSIS CATH RIJ PATENT W/SALINE LOCK.
--- NOTE | 2022-10-21 07:20 | NUR ---
Assumed care at approximately 0700. Pt in bed with 1:1 sitter present, airvo in place, 40L/min, 40%. Report from nightshift RN was that patient repeatedly pulled at lines/cords, exhibited agitated behavior and attempted to get out of bed. Multiple staff were required in order to keep patient safe and keep his oxygen in place. Patient currently very restless in bed, yelling occasionally. Pt has slurred speech, difficult to understand. R/IJ dialysis catheter in place. [place] in place. VS stable, will continue to monitor.
--- NOTE | 2022-10-21 12:53 | NUR ---
At approximately 0920 this RN and PCT were in room, assisting pt to bedside commode emergently. Pt refused to follow directions and leaned forward off of commode despite attempts to stop him. Pt leaned too far forward and was unable to be stopped from continuing to the floor. Pt had a short, controlled descent to floor and recovered back to bedside commode with two person assist. Fall reported to chargeback analyst.
--- NOTE | 2022-10-21 17:41 | NUR ---
Pt pulled schofield catheter out at approximately 1700. Some bleeding noted from urethra.
[2022-10-21 18:35] LABS: Source, Urine Foley catheter
--- NOTE | 2022-10-21 18:40 | NUR ---
Shift summary. Pt very restless and agitated this shift. In and out of restraints, see chart. Pt redirectable/following commands at times; not following commands, attempting to get out of bed, pulling lines at other times. Patient had a controlled, chair-to ground level fall this am, see chart/notes. Currently in locked wrist restaints, pt pulled schofield catheter out this afternoon. Replaced schofield, see chart. Dialysis catheter in place, R/IJ, wnl. Schofield draining to gravity. Pt tachicardic and hypertensive during periods of agitation and exhertion this shift, VS otherwise within normal range. See assessment/chart for further information. Will continue to monitor and report off to oncoming RN.
[2022-10-21 18:51] LABS: Appearance, Urine Hazy (Clear); Bilirubin, Urine Neg (Neg); Blood, Urine 5+ (Neg); Color, Urine Yellow (P-Yellow); Glucose Qualitative, Urine 4+ (Neg); Ketones, Urine 1+ (Neg); Leukocyte Esterase, Urine 1+ (Neg); Nitrite, Urine Neg (Neg); Protein, Urine 2+ (Neg); Urobilinogen, Urine NORM (Normal)
[2022-10-21 19:12] LABS: Bacteria Few /hpf; Red Blood Cells, Urine TNTC /hpf (0-2); Squamous Epithelial Cells Not Seen /hpf (Few)
[2022-10-22 03:55] LABS: BASOPHILS ABSOLUTE AUTO 0.03 K/mm3 (0.00-0.23); BASOPHILS PERCENT AUTO 0 % (0-2); EOSINOPHILS PERCENT AUTO 0 % (0-6); Hematocrit 30.7 % (37.0-53.0); IMMATURE GRAN ABSOLUTE AUTO 0.14 K/mm3 (0.00-0.10); IMMATURE GRAN PERCENT AUTO 1 % (0-1); LYMPHOCYTES ABSOLUTE AUTO 0.32 K/mm3 (0.84-5.20); LYMPHOCYTES PERCENT AUTO 3 % (21-46); MONOCYTES ABSOLUTE AUTO 0.74 K/mm3 (0.16-1.47); MONOCYTES PERCENT AUTO 7 % (4-13); Mean Corpuscular HGB 24.1 pg (26.0-34.0); Mean Corpuscular HGB Conc 29.3 g/dL (31.5-36.5); Mean Corpuscular Volume 82 fL (80-100); NEUTROPHILS ABSOLUTE AUTO 9.02 K/mm3 (1.96-9.15); NEUTROPHILS PERCENT AUTO 88 % (41-73); Platelet Count 171 K/mm3 (150-400); RDW Coefficient Variation 15.2 % (11.7-14.2); RDW Standard Deviation 45.2 fL (35.1-46.3); Red Blood Cell Count 3.73 M/mm3 (4.30-5.90); White Blood Cell Count 10.25 K/mm3 (4.00-11.30)
[2022-10-22 06:09] LABS: Albumin, Blood 3.3 g/dL (3.4-5.0); Anion Gap 3 mmol/L (6-16); Blood Urea Nitrogen 16 mg/dL (8-24); Bun/Creatinine Ratio 13.9 (12.0-20.0); CO2, Blood 33 mmol/L (21-32); Calcium, Blood 9.7 mg/dL (8.5-10.1); Chloride, Blood 101 mmol/L (98-108); Creatinine, Blood 1.15 mg/dL (0.60-1.20); Glomerular Filtration Rate 75 (60-); Glucose, Blood 338 mg/dL (70-99); Magnesium, Blood 2.1 mg/dL (1.6-2.4); Phosphorus, Blood 5.6 mg/dL (2.5-4.9); Potassium, Blood 5.8 mmol/L (3.5-5.5); Sodium, Blood 137 mmol/L (136-145)
--- NOTE | 2022-10-22 06:09 | NUR ---
PATIENT INCREASINGLY CONFUSED OVERNIGHT. NOT FOLLOWING COMMANDS OR PARTICIPATING IN ORIENTATION QUESTIONS. APPEARED TO SLEEP FOR NEARLY 7 HOURS AFTER SCHEDULED SEROQUEL. REQUIRING WRIST RESTRAINTS. MOVES ALL EXTREMITIES AND ATTEMPTING TO GET OOB. PULLS AT ANYTHING THAT HE CAN GRAB HOLD OF. SINUS TACH AND HYPERTENSIVE, REQUIRING PRN LABETOLOL X 2 AND PRN HYDRALAZINE X 1 TO MAINTAIN SYS <160. 5L OXYMASK. BENITEZ IN PLACE AND PATENT.
--- NOTE | 2022-10-22 08:00 | NUR ---
INITIAL ASSESSMENT PATIENT RESTLESS, AGITATED AND CONFUSED. PATIENT OCCASIONALLY RESPONDS TO VERBAL STIMULI AND SOME SIMPLE COMMANDS SUCH "SCOOT SELF UP IN BED, OPEN EYES, FEET BACK ON BED". PATIENT IS UNABLE TO ANSWER ANY QUESTIONS AND ONLY MUMBLES IN RESPONSE AT TIMES. PATIENT HAS TEMP OF 99.9 DEGREES FAHRENHEIT. PATIENT SATTING 90% AND GREATER ON EITHER 5 L OXYMASK OR 5 L NC. EXPIRATORY WHEEZES NOTED TO ALL LUNG LOBES. PATIENT IN ST, HR IN THE LOW 100S. SBP 170S TO 190S, ALTHOUGH IT IS HARD TO GET BP WHILE PATIENT SITTING STILL AND RESTING. EDEMA NOTED TO BILAT HANDS, ARMS AND FEET. ABD MODERATELY DISTENDED, SOFT, WITH HYPERACTIVE BOWEL SOUNDS NOTED. LAST BM DOCUMENTED YESTERDAY. PATIENT DRINKING CLEAR LIQUID DIET WELL. BENITEZ DRAINING YELLOW COLORED URINE. DRIED BLOOD NOTED AT URETHRAL MEATUS; PATIENT PULLED BENITEZ OUT YESTERDAY PER REPORT. SCAB TO DORSUM OF R HAND AND BILAT ACS. L AC STARTING TO OPEN UP IN MIDDLE FROM FREQUENT MOVING AND RESTLESSNESS. SCATTERED BRUISES AND SCABS NOTED. SKIN TEARS NOTED TO R RODRIGUEZ AND OUTER R HEEL. TRIALYSIS CATH TO R IJ. BED LOW. WILL CONTINUE TO MONITOR PATIENT FREQUENTLY THROUGHOUT SHIFT.
--- NOTE | 2022-10-22 08:30 | NUR ---
DR. EPPS CALLED AND INFORMED THAT PATIENT CONTINUES TO BE VERY AGITATED, RESTLESS, AND TRYING TO GET OUT OF RESTRAINTS AND BED. INFORMED THAT PATIENT HAS MEDS ON MED REC THAT ARE NOT ORDERED TO BE GIVEN HERE, SUCH REMERON, SEROQUEL, WELLBUTRIN AND PROZAC. INFORMED THAT IT DOES NOT APPEAR PATIENT HAS ANY CHEMICAL OR MECHANICAL DVT PROPHYLAXIS ORDERED. STATED HE WOULD LOOK AT MED REC AND ORDER MEDS. NO ORDERS RECEIVED AT THIS TIME.
--- NOTE | 2022-10-22 12:30 | NUR ---
PATIENT HAS TEMP OF 99.3 DEGREES FAHRENHEIT. HR IN THE LOW 100S. SBP 150S TO 160S. BLOOD SUGAR 295. NO OTHER ACUTE CHANGES TO NOTE ON AT THIS TIME. WILL CONTINUE TO MONITOR.
[2022-10-22 13:10] LABS: ANTIMYELOPEROXIDASE (MPO) ABS <0.2 units (0.0-0.9); ANTIPROTEINASE 3 (PR-3) ABS <0.2 units (0.0-0.9); ATYPICAL PANCA <1:20 titer (Neg:<1:20); CYTOPLASMIC (C-ANCA) <1:20 titer (Neg:<1:20); IMMUNOGLOBULIN A, QN, SERUM 199 mg/dL (90-386); IMMUNOGLOBULIN G, QN, SERUM 920 mg/dL (603-1613); IMMUNOGLOBULIN M, QN, SERUM 37 mg/dL (20-172); PERINUCLEAR (P-ANCA) <1:20 titer (Neg:<1:20)
--- NOTE | 2022-10-22 17:00 | NUR ---
PATIENT HAS TEMP OF 99.4 DEGREES FAHRENHHEIT. HR IN THE 90S. SBP IN THE 160S. BIPAP 22/18, RR 16, AND FIO2 AT 80%. PATIENT PULLED BENITEZ OUT TODAY AGAIN. FLEXISEAL DRAINAGE BAG APPLIED AROUND BASE OF PENIS AND ATTACHED TO SUCTION. PATIENT NOW SLEEPING. WILL CONTINUE TO MONITOR.
--- NOTE | 2022-10-22 18:43 | NUR ---
SHIFT SUMMARY PATIENT TOOK 3 GOOD NAPS THIS SHIFT. WHEN AWAKE, PATIENT VERY RESTLESS, AGITATED AND ALWAYS PULLING AT RESTRAINTS AND TRYING TO CRAWL OUT OF BED. LATE AFTERNOON PATIENT SLEEPING SOUNDLY AND PLACED ON BIPAP , RATE 16 AND FIO2 DECREASED FROM 80% TO 30% TO KEEP SATS 90% AND GREATER. BEFORE LATE AFTERNOON PATIENT SATTING ADEQUATELY ON EITHER 5 L NC OR 5 L OXYMASK. PATIENT CONTINUES TO GROAN AND MUMBLE WHEN NURSE ASKED QUESTIONS. PATIENT REMAINED CONFUSED BUT WAS ABLE TO FOLLOW SOME SIMPLE COMMANDS SUCH "SCOOT UP IN BED, OPEN YOUR MOUTH". PATIENT HAD TMAX OF 99.9 DEGREES FAHRENHEIT. PATIENT IN SR TO ST, HR 90S TO 1-TEENS. SBP 120S TO 190S. TACHYCARDIC AND HYPERTENSIVE WHEN AWAKE AND THRASHING AROUND IN BED. NO BM THIS SHIFT. PATIENT TOLERATED CLEAR LIQUID DIET WELL. DINNER HAS NOT BEEN GIVEN YET PATIENT SLEEPING SOUNDLY. 2400 MLS OF YELLOW URINE OUT FROM BENITEZ THIS SHIFT. PATIENT PULLED OUT BENITEZ AGAIN TODAY. FLEXISEAL DRAINAGE BAG PLACED AT BASE OF PENIS AND ATTACHED TO SUCTION. BENITEZ HAS BEEN OUT AND DRAINAGE BAG HAS BEEN IN PLACE ALMOST 3 HOURS AND PATIENT HAS NOT VOIDED YET. BLEEDING NOTED AT URETHRAL MEATUS. BLOOD SUGARS 295 AND 272 THIS SHIFT. SOME HOME MEDS STARTED THIS SHIFT, INCLUDING WELLBUTRIN, PROZAC, SEROQUEL, REMERON. CLINDAMYCIN STARTED THIS SHIFT. SUBOXONE INCREASED AND SCHEDULED TYLENOL STARTED TO HELP WITH SIGNS OF DISCOMFORT. PROCARDIA DOSE INCREASED THIS SHIFT. CHEMICAL DVT PROPHYLAXIS STARTED THIS SHIFT. PATIENT RECEIVED COMPLETE BED BATH. PATIENT APPEARS COMFORTABLE AT THIS TIME. BED LOW, CALL LIGHT IN REACH. REPORT WILL BE GIVEN TO ASSUMING NURSING EDUCATION CONSULTANT NURSE SHORTLY.
[2022-10-22 21:11] LABS: Source, Urine Foley catheter
[2022-10-22 21:14] LABS: Bilirubin, Urine Neg (Neg); Blood, Urine 5+ (Neg); Glucose Qualitative, Urine 4+ (Neg); Ketones, Urine Neg (Neg); Leukocyte Esterase, Urine 2+ (Neg); Nitrite, Urine Neg (Neg); Protein, Urine 3+ (Neg); Urobilinogen, Urine NORM (Normal)
--- NOTE | 2022-10-22 21:28 | NUR ---
ASSUMPTION OF CARE/ASSESSMENT: ASSUMED CARE OF PT AT 1900. PT IS IN BED SLEEPING WHEN THIS RN ASSUMED CARE. AFTER SHIFT REPORT, PT BEGAN TO WAKE UP AND WAS AGGITATED AND RESTLESS IN BED AND ATTEMPING TO PULL OFF FLEXISEAL, AND WAS SUCCESSFUL IN DISCONNECTING SUCTION TUBING AND LIFTING THE SEAL OF THE DEVICE. PT NOT RESPONDING TO VERBAL RE-DIRECTION AND CONTINUED TO THRASH ABOUT IN BED. MULTIPLE STAFF MEMBERS AT BEDSIDE TO HELP HOLD LEGS AND SECURE DEVICE. PT CONTINUED TO BE RESTLESS AND AGGITATED AND ATTEMPED TO KICK STAFF MEMBERS. PT EDUCATED THAT CONTINUED BEHAVIOR WOULD RESULT IN PLACEMENT OF RESTRAINTS ON BLE. PT CONTINUED TO KICK AT STAFF MEMBERS; LOCKED RESTRAINTS PLACED ON BLE AT THIS TIME. PT GREEN SHEET NOTED TO BE SATURATED AND IT WAS OBSERVED THAT TWO LARGE BLOOD CLOTS PASSED THROUGH URETHRA OPENING. AT THIS TIME BLADDER SCAN CONDUCTED D/T NO URINE PASSING FOR 4+. BLADDER SCAN SHOWERED ABOUT 400 MLS IN BLADDER. BENITEZ CATHETER PLACED AT THIS TIME BY THIS RN FOR RETENTION AND BLADDER IRRIGATION. PLACEMENT EASY AND IMMEDIATE URINE RETURN WITH TOTAL OF 425 MLS URINE OUTPUT. UA SENT TO LAB AT THIS TIME. NEW LINEN PLACED. PT CALMED DOWN AND PT ATE DINNER WITH ASSISTANCE. PT TOLERATED PO INTAKE WELL. PT WAS ABLE TO SAFELY TAKE PO MEDS AND DRINK WATER. PT BACK ASLEEP AT THIS TIME AND BIPAP PLACED WITH SETTINGS 22/16, RATE 16, AND FIO2 40%. PT LUNG SOUNDS ARE WHEEZY AND SPO2 96<. PT SR ON MONITOR WITH HR 70'S. PT SBP 200'S WHEN AGGITATED/RESTLESS AT BEGINNING OF SHIFT; 20 MG OF LABETOLOL PRN GIVEN PER EMAR, NOW SBP 130'S. PT HAS MODERATELY DISTENDED ABD THAT IS SOFT, NON-TENDER AND HYPERACTIVE BS IN ALL QUADRANTS. PT HAS PPP X 4 AND RIJ TRIALYSIS CATHETER IN PLACE THAT IS SALINE LOCKED. SKIN IS DRY AND FLAKEY; SCATTERED SCABS NOTED. PT FEBRILE WITH TMAX 99.9; FAN APPLIED. PT HAS NOW SETTLED DOWN AND IS SLEEPING. BED LOWERED, CALL LIGHT IN REACH, WILL CONTINUE TO MONITOR.
[2022-10-22 21:35] LABS: Appearance, Urine Hazy (Clear); Color, Urine Yellow (P-Yellow)
[2022-10-22 21:37] LABS: Bacteria Few /hpf; Red Blood Cells, Urine TNTC /hpf (0-2); Squamous Epithelial Cells Rare /hpf (Few)
--- NOTE | 2022-10-23 02:13 | NUR ---
UPDATE: PT WAKES UP AROUND 0115 AND IS THRASHING IN BED AND KICKING/FLAILING LEGS IN AN ATTEMPT TO GET THE CATHETER OUT. PT IS NOT RE-DIRECTABLE AT THIS TIME. PT IS STARTING TO YELL/SCREAM OUT; PT EDUCATED ABOUT NOT YELLING IN UNIT TO RESPECT OTHER PT'S. CALL PLACED TO DR CHAPMAN AND VERBAL ORDERS FOR ZYPREXA AND SEROQUEL RECIEVED (SEE EMAR). PT MEDICATED WITH ZYPREXA AND IS NOW RESTING IN PT ASLEEP. PT PLACED BACK IN LOCK RESTRAINT IN RLE R/T NON-STOP ATTEMPTS TO PULL OUT CATHETER WITH THAT EXTREMITIY. THIS RN NOW SITS OUTSIDE PT'S DOOR AFTER TECH LEFT AT 2245. BED LOWERED, WILL CONTINUE TO MONITOR.
[2022-10-23 04:38] LABS: Albumin, Blood 2.9 g/dL (3.4-5.0); Anion Gap 2 mmol/L (6-16); Blood Urea Nitrogen 14 mg/dL (8-24); Bun/Creatinine Ratio 14.8 (12.0-20.0); CO2, Blood 39 mmol/L (21-32); Calcium, Blood 9.6 mg/dL (8.5-10.1); Chloride, Blood 101 mmol/L (98-108); Creatinine, Blood 0.94 mg/dL (0.60-1.20); Glomerular Filtration Rate 95 (60-); Glucose, Blood 289 mg/dL (70-99); Phosphorus, Blood 2.6 mg/dL (2.5-4.9); Potassium, Blood 3.7 mmol/L (3.5-5.5); Sodium, Blood 142 mmol/L (136-145)
[2022-10-23 04:42] LABS: BASOPHILS ABSOLUTE AUTO 0.03 K/mm3 (0.00-0.23); BASOPHILS PERCENT AUTO 0 % (0-2); EOSINOPHILS ABSOLUTE AUTO 0.15 K/mm3 (0.00-0.68); EOSINOPHILS PERCENT AUTO 2 % (0-6); Hemoglobin 8.1 g/dL (13.5-17.5); IMMATURE GRAN ABSOLUTE AUTO 0.04 K/mm3 (0.00-0.10); IMMATURE GRAN PERCENT AUTO 1 % (0-1); LYMPHOCYTES ABSOLUTE AUTO 0.89 K/mm3 (0.84-5.20); LYMPHOCYTES PERCENT AUTO 12 % (21-46); MONOCYTES ABSOLUTE AUTO 0.75 K/mm3 (0.16-1.47); MONOCYTES PERCENT AUTO 10 % (4-13); Mean Corpuscular HGB 24.3 pg (26.0-34.0); Mean Corpuscular Volume 81 fL (80-100); Mean Platelet Volume 12.3 fL (9.1-12.4); NEUTROPHILS ABSOLUTE AUTO 5.71 K/mm3 (1.96-9.15); NEUTROPHILS PERCENT AUTO 75 % (41-73); Platelet Count 170 K/mm3 (150-400); RDW Coefficient Variation 15.3 % (11.7-14.2); RDW Standard Deviation 44.6 fL (35.1-46.3); Red Blood Cell Count 3.34 M/mm3 (4.30-5.90); White Blood Cell Count 7.57 K/mm3 (4.00-11.30)
--- NOTE | 2022-10-23 06:14 | NUR ---
SHIFT SUMMARY: PT REMAINS ASLEEP SINCE MOST RECENT RESTLESS/AGGITATED EVENT. PT MEDICATED WITH ZYPREXA EARLIER THIS MORNING AND WAS VERY RESPONSIVE TO MEDICATION. PT REMAINS IN LOCKED RESTRAINTS TO [facility]. PT CURRENTLY ON BIPAP, AND WAS ON FOR MOST OF THE NIGHT, WITH SETTINGS 22/16, RATE-16, AND FIO2 35%. VSS THROUGHOUT THE SHIFT. PT BENITEZ CATH REMAINS PATENT AND DRAINING TO GRAVITY WITH 1300 URINE OUTPUT; NO MORE CLOTS NOTED AND BLLEDING FROM [facility] HAS STOPPED. PT REMAINS IN DEEP SLEEP; MORNING MEDS WITHHELD DUE TO NOT BEING ABLE TO WAKE PT UP ALL THE WAY TO ENSURE SAFELY TAKING PO MED. WILL CONTINUE TO MONITOR UNTIL ONCOMING RN ARRIVES.
--- NOTE | 2022-10-23 07:00 | NUR ---
ASSUME CARE: I have assumed care of this patient. At this time bilateral locking restraints are in place. BiPAP mask in place and pt resting.
--- NOTE | 2022-10-23 09:00 | NUR ---
UPDATE: This RN got pt to chair with MANAGER MANAGING using lift. Once in chair pt began thrasing around attempting to reposition. He was sat up with no relief. Pt pomptly slung back to bed as RN concerned he would flip the chair. Once in bed he began kicking his legs over the bed, pulling off oxygen, attempting to pull out catheter, and otherwise thrashing. This RN unable to safely transition locking restraints back to soft wrist restraints.
--- NOTE | 2022-10-23 19:22 | NUR ---
SHIFT SUMMARY: Mentation clearing; oriented to self, location, and intermittantly year. Transitioned to PCU status today. NC titrated off to room air while awake. [place] removed and pt voiding in urinal. Pt tolerating meals well. He ambulated around unit using walker with RN and BRANCH SERVICE ASSOCIATE twice today. Pt continues to be very restless.
[2022-10-24 04:03] LABS: Hematocrit 28.9 % (37.0-53.0); Hemoglobin 8.5 g/dL (13.5-17.5)
[2022-10-24 04:20] LABS: Magnesium, Blood 1.7 mg/dL (1.6-2.4)
[2022-10-24 04:45] LABS: Anion Gap 2 mmol/L (6-16); Blood Urea Nitrogen 13 mg/dL (8-24); Bun/Creatinine Ratio 11.6 (12.0-20.0); CO2, Blood 38 mmol/L (21-32); Chloride, Blood 95 mmol/L (98-108); Creatinine, Blood 1.12 mg/dL (0.60-1.20); Glomerular Filtration Rate 77 (60-); Glucose, Blood 208 mg/dL (70-99); Potassium, Blood 3.9 mmol/L (3.5-5.5); Sodium, Blood 135 mmol/L (136-145)
[2022-10-24 04:46] LABS: Phosphorus, Blood 5.6 mg/dL (2.5-4.9)
--- NOTE | 2022-10-24 07:07 | NUR ---
PATIENT SLEPT FROM [id number]. CONFUSED/AGITATED/RESTLESS. REPEATEDLY REMOVING TELEMETRY LEADS, PULLED OUT DIALYSIS CATHETER, GETTING OOB, ATTEMPTING TO BITE AND HIT STAFF. DR NOTIFIED AND IM DanaeYPREXNila GIVEN. PATIENT ON ROOM AIR BUT UNABLE TO MONTIOR SPO2 BECAUSE HE WILL NOT KEEP PULSE OXIMETER ON. PATIENT HAD BEEN SR WITH INTERMITTENT PERIODS OF AFIB. PATIENT INCONTINENT.
--- NOTE | 2022-10-24 08:00 | NUR ---
ASSUME CARE: I assumed care of this patient at 0700. Overnight, pt pulled out trialysis catheter. He no longer has IV access and is pacing around room. customer support consultant RN reports pt attempting to bite him and swinging at RN. This RN called Dr Conner to update on pt status. Kendrick is aware that pt has no access. Will discontinue magnesium and change bumex to PO. Ethics consult ordered to help establish a safe, effective plan of care that pt is able to partipate in.
[2022-10-24 12:08] LABS: M-SPIKE, % Not Observed % (Not Observed); PROTEIN,TOTAL,URINE 19.9 mg/dL (Not Estab.)
--- NOTE | 2022-10-24 12:42 | NUR ---
UPDATE: POULTRY HUSBANDRY TEACHER at bedside for safety 1:1 as pt is very impulsive. He has pulled off telemetry leads and SpO2 prob several times today. BP difficult to obtain due to persistant moving. On spot checks when pt allows, SpO2 has been above 88%. He will not keep BIPAP in place. While napping in chair or in bed during the day, an oxymask in placed and titrated as needed. POULTRY HUSBANDRY TEACHER continues to work on maintaining monitoring devices as pt allows.
[2022-10-24 15:09] LABS: HBSAG SCREEN Negative (Negative); HCV AB Reactive (Non Reactive); HEP A AB, IGM Negative (Negative); HEP B CORE AB, IGM Negative (Negative); HEPATITIS C QUANTITATION HCV Not Detected IU/mL (.)
--- NOTE | 2022-10-24 18:01 | NUR ---
SHIFT SUMMARY: Pt restless and agitated this morning. He was given 1mg of PRN lorazepam per Dr. Conner with good effect. He has been more cooperative with nursing staff regarding allowing us to place SpO2 monitor and BIPAP while sleeping, though he does wake up confused and occasionally combative. He has continued to pull off telemetry stickers and dressings. Trialysis insertion site has been redressed twice today. Dr Campuzano at bedside to assess pt this afternoon. Several psych meds d/c's and new order for PRN seroquil placed. Request for guardianship also placed by psych.
--- NOTE | 2022-10-24 19:00 | NUR ---
ASSUMED CARE ASSUMED CARE OF PATIENT. SLEEPING WHEN UNDISTURBED. BIPAP 22/18, BUR 16, FIO2 35%. SATS STABLE. PT IS NOT ON MASTER CERTIFIED RV TECHNICIAN- MD IS AWARE. BED ALARM IS ON. SEE SHIFT ASSESSMENT FOR FULL ASSESSMENT.
--- NOTE | 2022-10-24 19:50 | NUR ---
BIPAP/DECREASED SATS PT FOUND WITH BIPAP OFF AND NO O2 FOR UNKNOWN AMOUNT OF TIME. O2 SATS 68%. RESPIRATIONS EVEN AND UNLABORED. ATTEMPTED TO PLACE PT BACK ON BIPAP, BUT PT REFUSES. 6L NC ON AT THIS TIME- SATS INCREASED TO 94%.
--- NOTE | 2022-10-24 21:30 | NUR ---
IMPULSIVE PT ATTEMPTING TO CLIMB OUT OF BED AT THIS TIME. UNABLE TO COMMUNICATE HIS NEEDS EFFECTIVELY. VERY IMPULSIVE AND NOT RE-DIRECTABLE. STANDING AT BEDSIDE WITH TWO RNs- LEGS ARE WEAK. VOIDED IN URINAL AND THEN PUT HIMSELF BACK IN BED.
--- NOTE | 2022-10-24 21:40 | NUR ---
TRANSFER TRANSFERRED TO U 8 AT THIS TIME. REPORT GIVEN TO SHAHID WHALEN RN.
--- NOTE | 2022-10-24 22:10 | NUR ---
TRANSFER NOTE THIS RN RECEIVED REPORT FROM JB NAVA FROM ICU VIA PHONE. PATIENT TO PCU AT 2144. PATIENT ROLLED SELF FROM ICU BED TO PCU BED WITHOUT HELP. PATIENT WAS ABLE TO SIT UP ON THE SIDE OF THE BED TO TAKE MEDS AND DRINK WATER. USED URINAL IN BED WITH ASSISTANCE FROM STAFF. PATIENT APPEARS AGGITATED AND RESTLESS AT THIS TIME. REMOVING CANNULA AND BLANKETS FREQUENTLY. MEDICATED PER EMAR FOR PAIN WITH NIGHT ANXIETY MED GIVEN. SITTER IN ROOM WITH PATIENT. PATIENT REDIRECTABLE AT THIS TIME. REFUSING TELE AT THIS TIME. REGULAR RATE AND RHYTHM NOTED WITH HR 70'S. BP STABLE. SPO2 96% ON 6L VIA NC. AFEBRILE. BED ALARM ON. BIPAP ON STANDBY IN ROOM. BED IN LOWEST POSITION AND CALL LIGHT WITHIN REACH.
--- NOTE | 2022-10-25 00:37 | NUR ---
PATIENT UPDATE PATIENT RESTING COMFORTABLY AT THIS TIME. BIPAP PLACED ON PATIENT WITH 35% FIO2. PATIENT TOLERATING WELL AT THIS TIME. THIS RN NOTED PATIENT WAS DESATTING PRIOR TO PLACEMENT OF BIPAP AND WAS DIAPHORETIC. PATIENT ALSO PLACED ON TELE AGAIN D/T DECREASED AGGITATION AT THIS TIME. WILL CONTINUE TO MONITOR CLOSELY FOR SAFETY WITH LINES/CORDS. 1 ON 1 SITTER IN ROOM WITH PATIENT.
--- NOTE | 2022-10-25 05:04 | NUR ---
SHIFT SUMMARY PATIENT LETHARGIC AND ORIENTED TO SELF ONLY. PATIENT IS EASILY AGGITATED WHEN WOKEN UP FOR CARE. OCCASIONALLY FOLLOWS SIMPLE COMMANDS. RECENTLY PATIENT WOKE UP AND ATTEMPTED TO USE URINAL BUT WAS UNABLE TO OPEN EYES, HOLD SELF UP, OR RESPOND MEANINGFULLY TO DIRECTION. PATIENT WAS ABLE TO WEAR BIPAP BRIEFLY DURING THIS SHIFT. THIS RN ATTEMPTED TO PLACE BIPAP X2 AND HAD PATIENT ONLY LEAVE IN PLACE FOR A SHORT PERIOD BEFORE REMOVING BIPAP AND OTHER MONITORING EQUIPMENT. PATIENT WAS VERY AGGITATED WHEN LAB CAME BY, SKEIN MERCERIZING MACHINE OPERATOR WILL ATTEMPT TO DRAW AROUND 0600 THIS AM. SPO2 >92% ON 6L VIA NC. BIPAP ON SB. BP STABLE. AFEBRILE. PATIENT WITH TELE ON CURRENTLY. BED ALARM ON. SITTER IN ROOM. BED IN LOWEST POSITION AND CALL LIGHT WITHIN REACH. THIS RN WILL CONTINUE TO MONITOR UNTIL SHIFT CHANGE AT 0700.
--- NOTE | 2022-10-25 05:59 | NUR ---
PATIENT UPDATE PCT TO ROOM TO ATTEMPT TO CHECK BLOOD GLUCOSE, PATIENT BEGAN TO BECOME AGGITATED AND WAS ASSISTED WITH THE URINAL AT THE SIDE OF THE BED. PATIENT USED URINAL, BUT THEN BEGAN TO ATTEMPT TO WALK AROUND THE ROOM AND BELIEVED THAT THE BEDSIDE TABLES WERE A RECLINER. PATIENT NOT DIRECTABLE. SITTING DOWN IN BED AND CONTINUING TO STAND BACK UP. PATIENT'S AGGITATION INCREASED. PATIENT WAS MEDICATED FOR PAIN AND AGGITATION. GIVEN FLUIDS PER REQUEST. PATIENT CONTINUED TO INSIST ON WALKING AROUND THE ROOM DESPITE BEING UNSTEADY AND ALMOST FALLING ON SEVERAL OCCASIONS, WHEN STAFF ATTEMPTED TO REDIRECT AGAIN AND HELP PATIENT, HE BEGAN TO CURSE AT STAFF AND TELLING THEM "NOT TO TOUCH HIM" WHILE ATTEMPTING TO HIT SEVERAL STAFF MEMBERS INCLUDING THIS RN. SECURITY WAS CALLED FOR A CODE KITCHEN AT THIS POINT D/T ESCALATION. SECURITY AT DOORWAY WHILE THIS RN CONTINUED TO ATTEMPT REDIRECTION WHILE TALKING IN A CALM VOICE ABOUT STAFF "TRYING TO KEEP PATIENT SAFE". PATIENT SAT BACK DOWN AND STAFF FOUND A RECLINER FOR PATIENT TO SIT IN. PATIENT ASSISTED TO RECLINER WITH TAB ALARM IN PLACE. PATIENT GIVEN MORE FLUIDS. NO INTERVENTION BY SECURITY NEEDED AT THIS TIME. NO RESTRAINTS USED. MD BURDEN TO BEDSIDE TO SPEAK TO PATIENT ABOUT NOT TRYING TO HIT STAFF, PT APPEARED AGREEABLE. NO FURTHER ORDERS AT THIS TIME. PATIENT CONTINUES TO HAVE 1 ON 1 SITTER IN ROOM FOR SAFETY. ASSESSING NEEDS FREQUENTLY WITH AGGITATION. DISTRIBUTION ENGINEER AND CHECKING BLOOD SUGAR BEING HELD AT THIS TIME UNTIL PATIENT IS ABLE TO BE MORE CALM WITH CARE AND STAFF. THIS RN WILL CONTINUE TO MONITOR AND REPORT TO ONCOMING RN.
--- NOTE | 2022-10-25 09:41 | NUR ---
THIS NETWORK SYSTEMS OPERATOR ASSESSED THAT OXYGEN SAT WAS 87-90. ATTEMPTED TO PLACE NASAL CANNULA BACK ON PT, PT SWUNG HAND AT THIS NETWORK SYSTEMS OPERATOR. NASAL CANNULA IS NOT ON THE PT AT THIS TIME, RN MADE AWARE.
[2022-10-25 09:52] LABS: Hemoglobin 8.6 g/dL (13.5-17.5)
--- NOTE | 2022-10-25 10:15 | NUR ---
UPDATE PT NOT ANSWERING ORIENTATION QUESTINSTHIS MORNING FOR MORNING ASSESSMENT. PT ASKED IF HE WOULD BE ABLE TO SWALLOW THE ORAL MEDS IF THEY WERE PULLED AND GIVEN TO HIM. PT NODDED YES. PO MEDS PROVIDED, PT TOOK MEDS, TOLERATED WELL.PT BECAME RESTLESS CONSTANTLY GETTING UP FROM BED AND WALKING TO THE BATHROOM AND CIRCLING THE BED. PT WOUULD LAY IN BED FOR ROUGHLY 30 SECONDS BEFORE GETTING RESTLESS AGAIN AND GETTING UP AND CIRCLING HIS BED AGAIN BEFORE LAYING IN BED FOR ANOTHER 30 SECONDS. PT ASKED IF HE WOULD LIKE SEROQUEL TO HELP HIM RELAX SOME. PT REPSPONDED BY REPEATING "SEROQUEL" MULTIPLE TIMES HE WAS STILL FREQUENTLY GETTING UP. PT TOOK SEROQUEL. PT CONTINUING TO BE RESTLESS ROUGHLY 10 MINUTES LATER. PT PICK AT IV SITE ON HIS NECK REPEATING "GET IT OFF" MULTIPLE TIMES. PT INFORMED THAT IT IS AND OLD IV SITE AND THAT HE HAD ALREADY REMOVED THE TEGADERM. PT OFFERED A BANDAIDE, PT AGREED. PT REMOVED BANDAIDE MOMENTS LATER AFTER BEING APPLIED.
[2022-10-25 11:40] LABS: Magnesium, Blood 1.6 mg/dL (1.6-2.4)
[2022-10-25 11:41] LABS: Albumin, Blood 2.9 g/dL (3.4-5.0); Anion Gap 7 mmol/L (6-16); Blood Urea Nitrogen 16 mg/dL (8-24); Bun/Creatinine Ratio 13.2 (12.0-20.0); CO2, Blood 31 mmol/L (21-32); Calcium, Blood 8.8 mg/dL (8.5-10.1); Chloride, Blood 93 mmol/L (98-108); Creatinine, Blood 1.21 mg/dL (0.60-1.20); Glomerular Filtration Rate 70 (60-); Glucose, Blood 196 mg/dL (70-99); Phosphorus, Blood 5.1 mg/dL (2.5-4.9); Potassium, Blood 3.8 mmol/L (3.5-5.5); Sodium, Blood 131 mmol/L (136-145)
--- NOTE | 2022-10-25 12:45 | NUR ---
Ethics consult order received and processed. Case notes, social matrix, and prognostic trajectory reviewed with the palliative care office. 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 He is essentially and consistently care resistant, or medically non-adherent. The evidence of non-participation or treatment disinterest is thoroughly and properly documented. This recalcitrant disposition appears homogenous with prior hospitalizations, where his mentation was considered more stable from a clinical stanbdpoint. If he is hospice elegible, and his family system can provide substitute consent, it would seem that a de-escalation of care would comport best with the s medical and social context, and align better with his known wishes and tangible practices, rather then pursuing the continuance of possibly unwanted aggressive or life extending service. If the aforementioned conditions are a fair estimation of the principaltereza situation both historically and prognostically (verify with his children and the hospitalist of record), then the most suitable, dignified, and ethically licit course, would be to honor the preferences that the principal himself has been signalling all along that he wants i.e. a lack of significant intervention. Please also see the palliative care note from Mattie Freire regarding the sons interest in serving as the formal fiduciary agent or court appointed guardian to aid in placement efforts. Thank you for this consult. Clive Kapoor ThD, ERIK
--- NOTE | 2022-10-25 15:16 | NUR ---
PT CONINUEING TO BE RESTLESS IN ROOM. PT CONSTALNTLY GETTING UP FROM HIS BED, CIRCLING TO THE OPPOSITE SIDE AND LAYING BACK DOWN FOR ROUGHLY 30 SECONDS AT A TIME. PT OFFERED A SHOWER TO WHICH PT AGREED. PT ABLE TO REMAIN SITTING IN CHAIR WHILE IN SHOWER. AFTER RETURNING TO HIS BED AFTER SHOWERINGM PT BECAME RESTLESS AGAIN CONSTANTLY GETTING UP. PT ATTEMPTED TO WALK OUT OF HIS ROOM COMPLETELY NUDE THE PT REFUSES TO KEEP GOWNS ON WHEN HE IS IN HIS ROOM.
--- NOTE | 2022-10-25 16:47 | NUR ---
PT FINALLY ABLE TO RELAX IN HIS RECLINER AROUND 1600. PT ABLE TO REST FOR ABOUT 45 MINUTES. AT ABOUT 1645 PT BECAME RESTLESS AGAIN ATTEMPTING TO WALK OUT OF HIS ROOM NUDE. PT REMINDED THAT HE NEEDED A GOWN ON, PT REDIRECTABLE AT THIS TIME. PT SAT IN CHAIR AWAITING FOR A GOWN TO BE PUT ON HIM. ONCE THE GOWN WAS APPLIED PT INSTANTLY GOT UP AND HEADED OUT TO THE HALLWAY. PT INFORMED THAT STAFF NEEDED TO APPLY A GAIT BELT AND GET A WALKER, PT CONTINUED ON OUT TO THE HALLWAY. ONCE IN THE HALLWAY, PT REACHED FOR THE WHEELCHAIR THAT WAS SITTING JUST OUTSIDE OF PT ROOM. BRAKES APPLIED TO WHEELCHAIR AND PT SAT DOWN IN WHEELCHAIR. PT ASKED IF HE WANTED TO JUST BE PUSHED AROUND, PT NOT ANSWERING. PT ASKED IF HE WOULD LIKE TO HEAD BACK TO HIS ROOM, PT STILL NOT ANSWERING STAFF. PT EYES ARE CLOSED WHILE SITTING IN WHEELCHAIR, APPEARS TO BE SLEEPING.
--- NOTE | 2022-10-25 17:14 | NUR ---
SHIFT SUMMARY PT ORIENTED TO SELF. PT RESPONDS TO SOUNDS AT BEGINNING OF SHIFT. THIS AFTERNOON, PT ABLE TO ANSWER SOME BASIC QUESTIONS. PT VSS FOR MAJORITY OF SHIFT. PT BP ELEVATED AT 1600. PT O2 SATS STABLE WHILE ON 4-6L NC, PT REMOVED O2 FOR MOST OF SHIFT. OTHER VSS THROUGHOUT SHIFT. PT VERY IMPULSIVE TODAY, REDIRECTABLE AT TIMES. PT NOT CALLING FOR ASSISTANCE. PT GIVEN SEROQUEL TWICE DURING SHIFT FOR AGITATION. ZYPREXA IM ORDERED BY FOR FURTHURE AGITATION. PT HAD NO IV ACCESS, DR AWARE AND ORDER IN PLACE. PT NOT ON TELE PT CONSTANTLY PULLING TELE OFF. PT PEELED TEGADERM FROM PORT ACCESS SITE ON NECK, ATTEMPTED TO REAPPLY BANDAGE, PT REFUSED. PT HAD SITTER PRESENT DURING SHIFT FOR SAFETY PT IS UNSTEADY ON FEET AND VERY RESTLESS. AT TIMES PT IS NOT REDIRECTABLE, SITTER INSTRUCTED NOT TO TRY AND FORCE PT TO STAY SEATED PT HAS BEEN COMBATIVE WITH STAFF PER REPORT. PT CONSTANTLY SWITCHING BETWEEN BED, CHAIR, AND RECLINER, SEE PREVIOUS NOTES. PT SON VISITED AND SPOKE WITH PALLIATIVE CARE AND CARE MANAGEMENT. PT SPEECH INCOMPREHENSIBLE WHEN PT IS ATTEMPTING TO TALK.
--- NOTE | 2022-10-26 06:19 | NUR ---
SHIFT SUMMARY PATIENT ALERT, ORIENTED TO SELF AND AT TIMES TO PLACE. VITALS STABLE. PATIENT REFUSING TO WEAR CONTINUOUS O2 AND WILL DESAT INTO 50s, PATIENT WILL WEAR O2 FOR A SHORT PERIOD OF TIME AND PULL IT OFF. ONCE O2 IS ON, PATIENT HAS O2 SATS IN THE 90s. PATIENT ABLE TO MAKE NEEDS KNOWN TO STAFF. AMBULATES TO BATHROOM AND IS ABLE TO TURN SELF INDEPENDENTLY. TOLERATING CLEAR LIQUID DIET. SITTER AT BEDSIDE FOR THE NIGHT. NO OTHER CHANGES, WILL REPORT TO DAY SHIFT RN.
[2022-10-26 11:09] LABS: Hematocrit 29.6 % (37.0-53.0); Hemoglobin 9.1 g/dL (13.5-17.5)
[2022-10-26 11:11] LABS: Albumin, Blood 3.1 g/dL (3.4-5.0); Anion Gap 5 mmol/L (6-16); Blood Urea Nitrogen 22 mg/dL (8-24); Bun/Creatinine Ratio 20.4 (12.0-20.0); CO2, Blood 35 mmol/L (21-32); Calcium, Blood 8.7 mg/dL (8.5-10.1); Chloride, Blood 90 mmol/L (98-108); Creatinine, Blood 1.08 mg/dL (0.60-1.20); Glomerular Filtration Rate 81 (60-); Glucose, Blood 349 mg/dL (70-99); Magnesium, Blood 1.5 mg/dL (1.6-2.4); Phosphorus, Blood 2.6 mg/dL (2.5-4.9); Potassium, Blood 3.3 mmol/L (3.5-5.5); Sodium, Blood 130 mmol/L (136-145)
--- NOTE | 2022-10-26 18:05 | NUR ---
END OF SHIFT/TRANSFER SUMMARY: PATIENT ARRIVED TO UNIT AROUND 16:30. PATIENT WAS RESTLESS AND MEDICATED FOR PAIN WITH TYLENOL. PATIENT ABLE TO SLEEP FROM THIS TIME TO DINNER. PATIENT WAS VERBALLY AGRESSIVE WITH THE ARSON INVESTIGATOR INITIALLY, BUT APOLOGIZED TO THE ARSON INVESTIGATOR FOR HIS BEHAVIOR. PATIENT IS ABLE TO MAKE HIS NEEDS KNOWN AND WAS WILLING TO WORK WITH STAFF TO GET TASKS ACCOMPLISHED (CBG, MEDICATIONS ETC). IN GENERAL, PATIENT INDICATED THAT HE WANTED TO BE LEFT ALONE. PATIENT STEADY ON HIS FEET AND AMBULATED TO THE BATHROOM INDEPENDENTLY.
--- NOTE | 2022-10-27 04:44 | NUR ---
ROTOGRAVURE PRESS OPERATOR SUMMARY PT ON REMOTE MONITOR. SITTER PRESENT FROM BEGINNING OF SHIFT UNTIL 44. PT INTERACTED WITH STAFF VERY LITTLE BUT ABLE TO MAKE NEEDS KNOWN AND SLEPT T/O MOST OF THE SHIFT UNTIL PERIODS OF RESTLESSNESS AND WAKEFULNESS AFTER 399. DURING PM VITALS FOUND THAT PT 02 SATS WERE IN THE 80'S. 2L O2 NC BROUGHT SATS WNL. PT NON-COMPLAINT W/O2 AND NOTED INCREASED CONFUSION AND AGITATION. DURING AM VITALS FOUND PT TO BE IN LOW 80'S. EDUCATED PT ON O2 AND ENCOURAGED NC. PT ON 1000ML FLUID RESTRICTION. PT WAS INFORMED WHEN FLUID WAS OUT; FOUND PT TO BE DRINKING IN THE BATHROOM. MORE EDUCATION ON FLUIDS; PT AGITATED AND CONTINUED DRIKING. PT VERY RESTLESS AFTER 0. GAVE ONE DOSE OF PRN SEROQEL. PT TAKING MULTPLE WALKS DOWN THE SCHULTZ W/WALKER. THIS NURSE CONT T/EDUCATE AND ENCOURAGE USE OF OXYGEN. PT AGITATED AND REFUSING. PT ALLOWED STAFF TO TAKE VITALS AND GIVE MEDS. PT NOT USING CALL LIGHT FOR NEEDS. PT IMPULSIVE/ANXIOUS. UP OOB ABRUPTLY AND THRASHING AROUND FROM TIME TO TIME. PT CAN BE ABRASIVE AND DIFFICULT TO UNDERSTAND.
[2022-10-27 14:06] LABS: Magnesium, Blood 1.4 mg/dL (1.6-2.4)
[2022-10-27 14:07] LABS: Albumin, Blood 3.1 g/dL (3.4-5.0); Anion Gap 2 mmol/L (6-16); Blood Urea Nitrogen 20 mg/dL (8-24); CO2, Blood 43 mmol/L (21-32); Calcium, Blood 9.1 mg/dL (8.5-10.1); Chloride, Blood 91 mmol/L (98-108); Glomerular Filtration Rate 88 (60-); Glucose, Blood 222 mg/dL (70-99); Potassium, Blood 3.5 mmol/L (3.5-5.5); Sodium, Blood 136 mmol/L (136-145)
--- NOTE | 2022-10-27 18:24 | NUR ---
SHIFT SUMMARY PT A&OX3. NO ACUTE CHANGES. PT AMBULATED IN THE SCHULTZ FREQUENTLY T/O DAY. NO C/O PAIN. PT INDEPENDENT TO BATHROOM. PT COOPERATIVE WITH USING OXYGEN WHEN RESTING IN BED. PT REFUSED LABS TWICE BUT AGREED THE THIRD TRY WITH SOME EDUCATION ABOUT THE NEED. PT'S MAGNESIUM LEVELS WERE LOW AND PO MAG ORDERED FOR TODAY ONLY. BED IN LOWEST POSITION AND CALL LIGHT IN REACH.
--- NOTE | 2022-10-28 04:22 | NUR ---
SALES ATTENDANT BUILDING MATERIALS SUMMARY PT MILDLY AGITATED AND ANXIOUS AT START OF SHIFT. AMBULATING FREQENTLY UP AND DOWN SCHULTZ. PT REQUESTED NIGHT MEDS CHRIS SO HE COULD GO TO BED. PM VITALS SHOWED ELEVATED SBP >200; GAVE PT ZYPREXA F/ANXIETY. FOLLOW BP SHOWED SPB IN 180'S. CALL TO PASTEURIZING SUPERVISOR DR--NEW ORDER FOR 25MG HYDRALAZINE Q8 F/SBP >80. PT RELUCTANT TO ALLOW VITALS AND AND CONT T/REQ STAFF NOT WAKE PT FOR CARE. PERIODS OF RESTLESS T/O THE NIGHT. PLANNED CARE/VITALS DURING PERIODS OF TIME WHEN PT AWAKE.
[2022-10-28 06:06] LABS: Hematocrit 30.7 % (37.0-53.0); Hemoglobin 9.4 g/dL (13.5-17.5)
[2022-10-28 06:18] LABS: Anion Gap 4 mmol/L (6-16); Blood Urea Nitrogen 23 mg/dL (8-24); Bun/Creatinine Ratio 21.1 (12.0-20.0); CO2, Blood 41 mmol/L (21-32); Calcium, Blood 8.8 mg/dL (8.5-10.1); Chloride, Blood 89 mmol/L (98-108); Creatinine, Blood 1.09 mg/dL (0.60-1.20); Glomerular Filtration Rate 80 (60-); Glucose, Blood 303 mg/dL (70-99); Magnesium, Blood 1.4 mg/dL (1.6-2.4); Phosphorus, Blood 3.9 mg/dL (2.5-4.9); Potassium, Blood 3.5 mmol/L (3.5-5.5); Sodium, Blood 134 mmol/L (136-145)
--- NOTE | 2022-10-28 18:27 | NUR ---
PT MOSTLY PLEASANT TODAY. HE DID ASK FOR IM ANXIETY MED TODAY. DONE. ALSO, HAS BEEN WALKING HALLS REGULARLY. CURRENTLY WATCHING TV. STATES DID HAVE B/M TODAY. CONTINUES TO BE INDEPENDANT IN ROOM. [facility] DR INDICATED HE MAY GO HOME TOMORROW. NO DISCHARGE PAPERS SUBMITTED AT THIS TIME. NO OTHER CONCERNS NOTED. BED IN L0W POSITION, CALL LITE IN REACH. CALLS APPROP
[2022-10-29 05:51] LABS: BASOPHILS ABSOLUTE AUTO 0.04 K/mm3 (0.00-0.23); BASOPHILS PERCENT AUTO 1 % (0-2); EOSINOPHILS ABSOLUTE AUTO 0.32 K/mm3 (0.00-0.68); EOSINOPHILS PERCENT AUTO 4 % (0-6); Hematocrit 31.3 % (37.0-53.0); Hemoglobin 9.7 g/dL (13.5-17.5); IMMATURE GRAN PERCENT AUTO 1 % (0-1); LYMPHOCYTES ABSOLUTE AUTO 1.14 K/mm3 (0.84-5.20); LYMPHOCYTES PERCENT AUTO 15 % (21-46); MONOCYTES ABSOLUTE AUTO 1.12 K/mm3 (0.16-1.47); MONOCYTES PERCENT AUTO 15 % (4-13); Mean Corpuscular HGB 24.1 pg (26.0-34.0); Mean Corpuscular Volume 78 fL (80-100); Mean Platelet Volume 11.1 fL (9.1-12.4); NEUTROPHILS ABSOLUTE AUTO 4.67 K/mm3 (1.96-9.15); NEUTROPHILS PERCENT AUTO 63 % (41-73); Platelet Count 256 K/mm3 (150-400); RDW Coefficient Variation 15.5 % (11.7-14.2); RDW Standard Deviation 42.4 fL (35.1-46.3); Red Blood Cell Count 4.03 M/mm3 (4.30-5.90); White Blood Cell Count 7.39 K/mm3 (4.00-11.30)
[2022-10-29 06:23] LABS: Albumin/Globulin Ratio 0.8 (0.8-1.8); Bilirubin, Total 0.5 mg/dL (0.1-1.0); Bun/Creatinine Ratio 21.6 (12.0-20.0); Creatinine, Blood 1.02 mg/dL (0.60-1.20); Potassium, Blood 3.4 mmol/L (3.5-5.5)
[2022-10-29] MEDS ORDERED: BUME2 PO (12:35)
[2022-10-29] MEDS ORDERED: SUBOXONE 8 MG-1 EACH SL (12:36)
--- NOTE | 2022-10-29 12:57 | NUR ---
DISCHARGE PT DISCHARGE PACKET COMPLETED. HE HAS COMPLETED THE MICHEL PACKET. NO IV TO REMOVE. TAXI OBTAINED FOR HIS RIDE HOME. CONTINUE POC.
== END 2022-10-29 12:52 | disposition home or self-care (01) | DRG 682 ==
LOC: ER 19:19 → ICUW 22:21 → PCU 10-24 21:42 → MEDS 10-26 16:13
PROVIDERS: Emergency Medicine; Family Medicine; Internal Medicine; Internal Medicine Nephrology; ADMIT Internal Medicine
PROC: 0T9B70Z Drainage of Bladder with Drainage Device, Via Natural or Artificial Opening (ICD-10-PCS; 2022-10-16)
PROC: 02HV33Z Insertion of Infusion Device into Superior Vena Cava, Percutaneous Approach (ICD-10-PCS; principal; 2022-10-17)
PROC: B548ZZA Ultrasonography of Superior Vena Cava, Guidance (ICD-10-PCS; 2022-10-17)
PROC: 4A033R1 Measurement of Arterial Saturation, Peripheral, Percutaneous Approach (ICD-10-PCS; 2022-10-17)
PROC: 5A09357 Assistance with Respiratory Ventilation, Less than 24 Consecutive Hours, Continuous Positive Airway Pressure (ICD-10-PCS; 2022-10-17)
PROC: 5A1D70Z Performance of Urinary Filtration, Intermittent, Less than 6 Hours Per Day (ICD-10-PCS; 2022-10-18)
PROC: 5A0945A Assistance with Respiratory Ventilation, 24-96 Consecutive Hours, High Flow/Velocity Cannula (ICD-10-PCS; 2022-10-18)
DX: N17.9 Acute kidney failure, unspecified (principal); G92.8 Other toxic encephalopathy; E66.2 Morbid (severe) obesity with alveolar hypoventilation; Z68.42 Body mass index [BMI] 45.0-49.9, adult; E87.1 Hypo-osmolality and hyponatremia; N18.9 Chronic kidney disease, unspecified; E87.5 Hyperkalemia; F15.10 Other stimulant abuse, uncomplicated; E11.22 Type 2 diabetes mellitus with diabetic chronic kidney disease; E11.649 Type 2 diabetes mellitus with hypoglycemia without coma; E87.70 Fluid overload, unspecified; D63.1 Anemia in chronic kidney disease; E87.6 Hypokalemia; E83.42 Hypomagnesemia; E83.39 Other disorders of phosphorus metabolism; I12.9 Hypertensive chronic kidney disease with stage 1 through stage 4 chronic kidney disease, or unspecified chronic kidney disease; F41.8 Other specified anxiety disorders; E86.9 Volume depletion, unspecified; K21.9 Gastro-esophageal reflux disease without esophagitis; W19.XXXA Unspecified fall, initial encounter; Z87.2 Personal history of diseases of the skin and subcutaneous tissue; Z98.890 Other specified postprocedural states; Z79.899 Other long term (current) drug therapy; Z87.891 Personal history of nicotine dependence; Z79.02 Long term (current) use of antithrombotics/antiplatelets; Z79.4 Long term (current) use of insulin; Z79.84 Long term (current) use of oral hypoglycemic drugs
CPT/HCPCS: 36415; 36556; 36600; 51702; 71045; 76770; 80048; 80053; 80069; 80074; 81001; 81003; 81050; 82550; 82803; 82947; 83516; 83520; 83605; 83735; 84132; 84156; 84166; 85014; 85018; 85025; 85027; 86037; 86038; 86317; 86334; 86335; 87086; 93005; 93010; 94640; 94660; 94664; 94762; 96365; 96375; 96376; 97129; 97162; 97165; 97530; 99285-25; A9270; C1752; G0480; J0360; J0610; J0881; J1630; J1644; J1815; J2060; J3010; J7030; J7050; J7060; J7070; J7799; P9046

== ENCOUNTER 2022-10-30 16:57 | Emergency (ER) | payer OTHER ==
[~2022-10-30] VITALS: Ht 182.9 cm; Wt 136.1 kg
[2022-10-30 18:06] LABS: BASOPHILS ABSOLUTE AUTO 0.05 K/mm3 (0.00-0.23); BASOPHILS PERCENT AUTO 0 % (0-2); EOSINOPHILS ABSOLUTE AUTO 0.51 K/mm3 (0.00-0.68); EOSINOPHILS PERCENT AUTO 4 % (0-6); Hematocrit 30.3 % (37.0-53.0); Hemoglobin 9.3 g/dL (13.5-17.5); IMMATURE GRAN ABSOLUTE AUTO 0.18 K/mm3 (0.00-0.10); IMMATURE GRAN PERCENT AUTO 2 % (0-1); LYMPHOCYTES ABSOLUTE AUTO 1.14 K/mm3 (0.84-5.20); LYMPHOCYTES PERCENT AUTO 9 % (21-46); MONOCYTES ABSOLUTE AUTO 1.67 K/mm3 (0.16-1.47); MONOCYTES PERCENT AUTO 14 % (4-13); Mean Corpuscular HGB Conc 30.7 g/dL (31.5-36.5); Mean Corpuscular Volume 78 fL (80-100); Mean Platelet Volume 11.6 fL (9.1-12.4); NEUTROPHILS ABSOLUTE AUTO 8.68 K/mm3 (1.96-9.15); NEUTROPHILS PERCENT AUTO 71 % (41-73); Platelet Count 266 K/mm3 (150-400); RDW Coefficient Variation 15.6 % (11.7-14.2); RDW Standard Deviation 43.7 fL (35.1-46.3); Red Blood Cell Count 3.88 M/mm3 (4.30-5.90); White Blood Cell Count 12.23 K/mm3 (4.00-11.30)
[2022-10-30 18:29] LABS: Albumin, Blood 3.1 g/dL (3.4-5.0); Albumin/Globulin Ratio 0.7 (0.8-1.8); Bilirubin, Total 0.3 mg/dL (0.1-1.0); Bun/Creatinine Ratio 15.5 (12.0-20.0); Calcium, Blood 9.5 mg/dL (8.5-10.1); Creatinine, Blood 1.74 mg/dL (0.60-1.20); Globulin, Blood 4.2 g/dL (2.2-4.0); Potassium, Blood 4.1 mmol/L (3.5-5.5); Total Protein, Blood 7.3 g/dL (6.4-8.2)
== END 2022-10-31 00:33 | disposition home or self-care (01) ==
LOC: ER 16:57
PROVIDERS: Emergency Medicine
DX: R42 Dizziness and giddiness (principal); E11.65 Type 2 diabetes mellitus with hyperglycemia; E87.1 Hypo-osmolality and hyponatremia
CPT/HCPCS: 80053; 82947; 85025; 96360; 99285-25; J1815; J7030

== ENCOUNTER 2022-11-04 13:39 | Emergency (ER) | payer OTHER ==
[~2022-11-04] VITALS: Ht 182.9 cm; Wt 163.3 kg
[2022-11-04] MEDS ORDERED: BUMETANIDE2 M6 PO (13:56)
[2022-11-04] MEDS ORDERED: REMERON30 M9 PO (13:57)
[2022-11-04] MEDS ORDERED: ADALAT CC60 M1 PO (13:57)
[2022-11-04] MEDS ORDERED: AMLODIPINE BESY10 MG PO (13:58)
[2022-11-04 14:11] LABS: BASOPHILS ABSOLUTE AUTO 0.07 K/mm3 (0.00-0.23); BASOPHILS PERCENT AUTO 1 % (0-2); EOSINOPHILS ABSOLUTE AUTO 0.31 K/mm3 (0.00-0.68); EOSINOPHILS PERCENT AUTO 3 % (0-6); Hematocrit 35.7 % (37.0-53.0); Hemoglobin 10.9 g/dL (13.5-17.5); IMMATURE GRAN ABSOLUTE AUTO 0.07 K/mm3 (0.00-0.10); IMMATURE GRAN PERCENT AUTO 1 % (0-1); LYMPHOCYTES ABSOLUTE AUTO 1.34 K/mm3 (0.84-5.20); LYMPHOCYTES PERCENT AUTO 15 % (21-46); MONOCYTES ABSOLUTE AUTO 0.96 K/mm3 (0.16-1.47); MONOCYTES PERCENT AUTO 11 % (4-13); Mean Corpuscular HGB 23.4 pg (26.0-34.0); Mean Corpuscular HGB Conc 30.5 g/dL (31.5-36.5); Mean Corpuscular Volume 77 fL (80-100); Mean Platelet Volume 11.5 fL (9.1-12.4); NEUTROPHILS ABSOLUTE AUTO 6.29 K/mm3 (1.96-9.15); NEUTROPHILS PERCENT AUTO 70 % (41-73); Platelet Count 374 K/mm3 (150-400); RDW Coefficient Variation 15.4 % (11.7-14.2); RDW Standard Deviation 42.7 fL (35.1-46.3); Red Blood Cell Count 4.65 M/mm3 (4.30-5.90); White Blood Cell Count 9.04 K/mm3 (4.00-11.30)
[2022-11-04 15:03] LABS: U Amphetamine Screen Not Detected; U Barbituate Screen Not Detected; U Benzodiazapine Screen Not Detected; U Buprenorphine Screen DETECTED; U Cannabinoids Screen Not Detected; U Cocaine Screen Not Detected; U Methadone Screen Not Detected; U Methamphetamine Screen Not Detected; U Opiates Screen Not Detected; U Oxycodone Screen Not Detected; U Phencyclidine Screen Not Detected; U Propoxyphene Screen Not Detected
[2022-11-04 15:36] LABS: Albumin, Blood 3.3 g/dL (3.4-5.0); Albumin/Globulin Ratio 0.7 (0.8-1.8); Bilirubin, Total 0.3 mg/dL (0.1-1.0); Bun/Creatinine Ratio 28.8 (12.0-20.0); Calcium, Blood 9.9 mg/dL (8.5-10.1); Creatinine, Blood 1.91 mg/dL (0.60-1.20); Globulin, Blood 4.8 g/dL (2.2-4.0); Total Protein, Blood 8.1 g/dL (6.4-8.2)
== END 2022-11-04 17:15 | disposition home or self-care (01) ==
LOC: ER 13:39
PROVIDERS: Emergency Medicine
DX: R55 Syncope and collapse (principal); I95.9 Hypotension, unspecified; E86.0 Dehydration; E11.9 Type 2 diabetes mellitus without complications; I10 Essential (primary) hypertension; Z79.4 Long term (current) use of insulin; Z79.899 Other long term (current) drug therapy
CPT/HCPCS: 36415; 70450; 80053; 82947; 84484; 85025; 93005; 93010; J7030

== ENCOUNTER 2022-12-14 17:34 | Emergency (ER) | payer OTHER ==
[~2022-12-14] VITALS: Ht 185.4 cm; Wt 142.9 kg
[~2022-12-14 17:34] MED LIST changes: +ADALAT CC60 M1 PO; +AMLODIPINE BESY10 MG PO; +BUMETANIDE2 M6 PO; +REMERON30 M9 PO
[2022-12-14 17:57] VITALS: BP 149/85
== END 2022-12-14 20:37 | disposition home or self-care (01) ==
LOC: ER 17:34
DX: E11.649 Type 2 diabetes mellitus with hypoglycemia without coma (principal); Z79.899 Other long term (current) drug therapy; Z79.4 Long term (current) use of insulin; I10 Essential (primary) hypertension; K21.9 Gastro-esophageal reflux disease without esophagitis; E66.9 Obesity, unspecified
CPT/HCPCS: 82947; 99285